=== PATIENT | male | born 1960 | race Caucasian/White ===

== ENCOUNTER 2022-04-21 16:13 | Emergency (ER) | payer OTHER, SELFPAY ==
--- NOTE | ~2022-04-21 | XR_ITS ---
EXAMINATION: XR CHEST CLINICAL INFORMATION: Chest wall pain COMPARISON: 05/30/2009 TECHNIQUE: 2 views of the chest were obtained. FINDINGS: Bilateral basilar atelectasis. Trace effusions cannot be excluded. The mid-upper lung zones are grossly clear. There is no failure. The cardiac silhouette is within normal limits for projection. The hilar regions are not pathologically enlarged. XR/XR chest 2V IMPRESSION: Bilateral basilar atelectasis
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
[2022-04-21 16:27] VITALS: BP 178/64; PULSE 59; RESP 18; TEMP 36.1; O2SAT 92; BMI 25.1
--- NOTE | 2022-04-21 16:32 | ECG_ITS ---
Test Reason : chest pain Blood Pressure : / mmHG Vent. Rate : 057 BPM Atrial Rate : 057 BPM P-R Int : 144 ms QRS Dur : 094 ms QT Int : 454 ms P-R-T Axes : 019 -37 047 degrees QTc Int : 441 ms Sinus bradycardia Left axis deviation Minimal voltage criteria for LVH, may be normal variant ( [place] product ) Abnormal ECG When compared with ECG of 30-MAY-2009 23:24, Incomplete right bundle branch block is no longer Present Referred By: Generic ED Physician Electronically Signed By:CAMILO QUINTANA
[2022-04-21 17:06] LABS: MANUAL DIFF FLAG NO
[2022-04-21 17:08] LABS: Basophils Absolute Auto 0.1 X10*3/uL (0.0-0.2); Basophils Percent Auto 0.7 % (0-2); Eosinophils Absolute Auto 0.4 X10*3/uL (0.0-0.4); Eosinophils Percent Auto 4.3 % (0-4); Hematocrit 38.1 % (42.0-52.0); Hemoglobin 12.3 g/dl (14.0-18.0); Imm Gran Abs Auto 0.06 X10*3/uL (0.00-0.03); Imm Gran Pct Auto 0.6 % (0.0-0.4); Lymphocytes Absolute Auto 2.9 X10*3/uL (1.2-4.9); Lymphocytes Percent Auto 28.7 % (20-40); Mean Corpuscular HGB Conc 32.3 g/dl (31.0-36.0); Mean Corpuscular Hemoglobin 30.5 pg (27.0-33.0); Mean Corpuscular Volume 94.5 fL (80.0-98.0); Mean Platelet Volume 9.7 fL (9.4-12.4); Monocytes Absolute Auto 0.9 X10*3/uL (0.1-1.2); Neutrophils Absolute Auto 5.8 x10*3/uL (2.0-8.3); Neutrophils Percent Auto 56.7 % (45-73); Platelet Count 275 X10*3/uL (160-400); Red Blood Count 4.03 X10*6/uL (4.60-5.80); Red Cell Distribution Width 11.9 % (11.0-16.0); White Blood Count 10.3 X10*3/uL (4.8-10.8)
[2022-04-21 17:21] LABS: D Dimer High Sensitivity 207 NG/ML
[2022-04-21 17:23] LABS: Anion Gap 13 (12-20); Blood Urea Nitrogen 16 mg/dL (9-16); Calcium 8.4 mg/dL (8.4-10.2); Carbon Dioxide 28 mmol/L (22-29); Chloride 105 mmol/L (96-108); Creatinine Clr Calc Pharmacy 80.6; Estimated Glomerular Filt Rate > 60; Glucose Random 94 mg/dL (60-115); Potassium 4.4 mmol/L (3.3-5.1); Sodium 142 mmol/L (135-145)
[2022-04-21 17:32] LABS: B Type Natriuretic Peptide 160 pg/mL (<100); Troponin-I High Sensitivity 4.4 ng/L (<3.5-35.0)
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
[2022-04-21] MEDS: Lidocaine 4 % Patch ADH..PATCH 1 PATCH TRANSDERMA (18:54)
[2022-04-21] MEDS: Ketorolac Tromethamine 30 MG/ML VIAL IM (18:54)
== END 2022-04-21 19:55 | disposition home or self-care (01) ==
PROVIDERS: Emergency Provider Emergency Medicine Emergency Medical Services; PCP Nurse Practitioner
DX: S20.211A Contusion of right front wall of thorax, initial encounter (principal); W22.09XA Striking against other stationary object, initial encounter; Y93.89 Activity, other specified; Y92.811 Bus as the place of occurrence of the external cause; Y99.8 Other external cause status
CPT/HCPCS: 36415; 71046; 71100; 80048; 83880; 84484; 85025; 85379; 93005; 96372; 99283; 99284; J1885

== ENCOUNTER 2022-11-09 07:52 | Emergency (ER) | payer OTHER, SELFPAY ==
--- NOTE | ~2022-11-09 | CT_ITS ---
EXAMINATION: CT CHEST WITHOUT CONTRAST CLINICAL INFORMATION: Abnormal right lung base on recent CT abdomen and pelvis exam. COMPARISON: CT abdomen pelvis with IV contrast 11/09/2022 chest x-ray 04/21/2022. TECHNIQUE: Multidetector volumetric CT imaging of the chest was done. Axial MIP volume rendering provided. Sagittal and coronal reformatted images were obtained. This CT examination was performed using dose optimization techniques as appropriate, variously including the following: *Automated exposure control *Adjustment of mA and/or kV according to patient size (this includes techniques or standardized protocols for targeted exams where dose is matched to indication/reason for exam; i.e. extremities or head) *Use of iterative reconstruction technique DLP: 302 mGy-cm FINDINGS: TEXTILES PRINTER: Loss of right lung volume with blunting of right CP angle. Left lung is clear. LUNGS: The left lung is expanded with minimal compressive atelectasis lung base. Minimal left basilar atelectasis seen. There is chronic loss of right lung volume with chronic atelectasis and scarring right lung base and subpleural scarring or atelectasis right upper lobe and right middle lobe. There is minimal traction bronchiectasis right lower lobe without thickening. There is a 5 mm nodule right middle lobe axial image 263/5. No additional nodules seen. MEDIASTINUM: The heart size and the great vessels are normal caliber. Central trachea and the bronchi widely patent. The thyroid lobes are symmetric and normal. There is a 8 mm pretracheal nodule likely benign. No pericardial effusion seen. CORONARY ARTERY CALCIFICATION: None visualized on this study. PLEURA: There is a loculated right pleural effusion with visceral and parietal pleural thickening. No calcified pleural plaque seen. The left lobe is unremarkable. AXILLA: No lymphadenopathy. UPPER ABDOMEN: Visualized liver, spleen, pancreas and bilateral adrenal glands unremarkable. Multiple radiopaque calculi upper pole calyx left kidney and 2.2 cm cyst upper pole right kidney. OSSEOUS STRUCTURES: No aggressive lytic or sclerotic process seen. CT/CT chest wo IV con IMPRESSION: Chronic loss of right lung volume with atelectatic changes involving the entire lung. There is a loculated small right pleural effusion with pleural thickening. Minimal compressive atelectasis left lung base. Fleischner guidelines were followed.
--- NOTE | ~2022-11-09 | CT_ITS ---
EXAMINATION: CT ABDOMEN AND PELVIS WITH CONTRAST CLINICAL INFORMATION: Abdominal pain with nausea and vomiting COMPARISON: Chest film dated 08/29/2021 TECHNIQUE: Multidetector volumetric images were obtained from the superior aspect of the liver through the pubic symphysis following administration 85 mL of Omnipaque 350 intravenous contrast. Sagittal and coronal reformatted images were obtained on the technologist's workstation. Oral contrast: No This CT examination was performed using dose optimization techniques as appropriate, variously including the following: *Automated exposure control *Adjustment of mA and/or kV according to patient size (this includes techniques or standardized protocols for targeted exams where dose is matched to indication/reason for exam; i.e. extremities or head) *Use of iterative reconstruction technique DLP: 669 mGy-cm FINDINGS: LUNG BASES: Mild left basilar atelectasis. More thickened confluent density at the right base with a small effusion versus pleural reaction partially visualized. LIVER, GALLBLADDER, AND BILIARY TREE: There is mild intrahepatic ductal dilatation. Gallbladder is grossly within normal limits. The common duct portal region at 9 mm. There is also some dilatation of the pancreatic duct immediately adjacent PANCREAS: No obvious pancreatic lesion. Lesion at the ampulla cannot be excluded. Again ductal dilatation is seen in the pancreas. SPLEEN: Unremarkable. ADRENAL GLANDS: Unremarkable. KIDNEYS AND URETERS: There is no hydronephrosis. Some scattered areas of decreased attenuation may well represent evolving cystic change. BLADDER: Bladder is thick-walled. GASTROINTESTINAL TRACT: The bowel pattern is felt to be nonobstructing. A normal appendix is not seen but no definitive suspicion around the cecum. ABDOMINAL WALL: No significant hernia is appreciated. LYMPH NODES: There is no bulky adenopathy here. VASCULAR: Some atherosclerotic changes are noted. PELVIC VISCERA: Prominent prostate OSSEOUS STRUCTURES: Degenerative changes in the mid to lower lumbar spine. No compression injury. CT/CT abdomen pelvis w IV con IMPRESSION: The bowel pattern is nonobstructing. There is no free fluid. Note is made of mild intrahepatic ductal dilatation and prominent common duct and pancreatic duct. No obvious pancreatic lesion. Underlying lesion at the level the ampulla cannot be excluded. Consider MRI and postcontrast/MRCP to further evaluate. Other findings are as described above. There is significant density in the right lower lung which may represent atelectasis versus infiltrate with adjacent small effusion versus pleural reaction. Given the appearance underlying lesion cannot be excluded. Consider short-term follow-up after treatment in 4-[address] for continued evaluation. Otherwise consider a PET scan at this time to evaluate for possible underlying lesion. Other findings are as described above. Prominent prostate. Thick-walled bladder which may be hypertrophy. Cystitis cannot be excluded. Fleischner guidelines were followed.
--- NOTE | ~2022-11-09 | US_ITS ---
EXAMINATION: US ABDOMEN LIMITED CLINICAL INFORMATION: Epigastric pain, nausea and vomiting.. COMPARISON: None available. TECHNIQUE: Real-time imaging of the right upper quadrant abdominal viscera. FINDINGS: PANCREAS: The pancreas is partially obscured narrowing gas. LIVER: The liver is enlarged in size measuring 17.7 cm.. The liver is normal in size. The liver contour is normal. Parenchymal echogenicity is normal. No focal hepatic lesion. Mild dilated intrahepatic ducts are noted. GALLBLADDER: Normal. The gallbladder is physiologically distended without evidence of stones, sludge, polyps, wall thickening or pericholecystic fluid. COMMON BILE DUCT: Normal in caliber measuring 0.7 cm in diameter. RIGHT KIDNEY: No hydronephrosis. No renal calculi or focal parenchymal lesions. The kidney measures 9.5 cm in maximum dimension. There are anechoic cysts. An upper pole cyst measures 1.8 x 1.7 x 1.7 cm and septated. The midpole cyst measures 1.5 x 1.3 x 1.2 cm. FREE FLUID: None. US/US abdomen limited IMPRESSION: 1. Mild hepatomegaly. No focal lesion seen. 2. Mild intrahepatic ductal dilatation. 3. Right renal cysts. 4. Rest of the abdominal ultrasound is unremarkable.
[2022-11-09 07:57] VITALS: BP 140/90; BP 242/92; PULSE 50; PULSE 56; RESP 18; O2SAT 94; O2SAT 95; BMI 24.3
--- NOTE | 2022-11-09 08:34 | ECG_ITS ---
Test Reason : epigastric pain Blood Pressure : / mmHG Vent. Rate : 055 BPM Atrial Rate : 055 BPM P-R Int : 156 ms QRS Dur : 096 ms QT Int : 470 ms P-R-T Axes : 011 -34 030 degrees QTc Int : 449 ms Sinus bradycardia Left axis deviation Minimal voltage criteria for LVH, may be normal variant ( [place] product ) Abnormal ECG When compared with ECG of 21-APR-2022 16:55, No significant change was found Referred By: Mahsa Vargas Electronically Signed By:DEIRDRE PEÑALOZA MD
[2022-11-09] MEDS: Magnesium Hydrox/Alum Hydrox 30 ML ORAL.SUSP PO (08:51)
[2022-11-09] MEDS: ondansetron HCL 4 MG/2 ML VIAL IVPUSH (08:51)
[2022-11-09] MEDS: Lidocaine HCl Viscous 2 % 15 ML SOLUTION MUCOUS MEM (08:51)
[2022-11-09] MEDS: 0.9 % Sodium Chloride 1,000 ML 999 ML IV (08:51)
[2022-11-09] MEDS: Famotidine/PF 20 MG/2 ML VIAL IVPUSH (08:51)
[2022-11-09] MEDS: lisinopriL 40 MG TABLET PO (08:51)
[2022-11-09 08:52] VITALS: BP 202/88
--- NOTE | 2022-11-09 08:54 | ED_ITS ---
HPI - Nausea/Vomiting/Diarrhea General Chief complaint: Nausea/Vomiting/Diarrhea Stated complaint: Nausea since last night per EMS Time Seen by Provider: 11/09/22 08:05 Source: patient Mode of arrival: ambulatory History of Present Illness HPI Narrative: 62-year-old male with past medical history of hypertension presenting to the ED complaining of nausea, vomiting, epigastric abdominal pain since 02:00AM. Reports about 3 episodes of nonbloody emesis. Reports ate food that was not but in the refrigerator last night, suspects this may be cause of symptoms. Denies fever, recent travel, dysuria/hematuria, diarrhea. Patient denies taking his antihypertensive this morning MD elicited complaint: nausea, vomiting and abdominal pain Related Data Previous Rx's Medication Instructions Recorded acetaminophen 500 mg tablet 500 mg PO Q6H PRN fever or pain 04/21/22 (Tylenol Extra Strength) #14 tabs cyclobenzaprine 5 mg tablet 5 mg PO Q8H PRN pain (scale score 04/21/22 7-10) 5 days #14 tabs lidocaine 5 % topical patch 1 patch topical DAILY PRN pain #30 04/21/22 (Lidoderm) ea naproxen 500 mg tablet 500 mg PO BID PRN pain 10 days #20 04/21/22 tabs Allergies Allergy/AdvReac Type Severity Reaction Status Date / Time No Known Allergies Allergy Mild NONE Unverified 05/07/20 15:16 Review of Systems Review of Systems: Constitutional: No Fever, No Chills, No Fatigue, No Malaise ENT/Mouth: No Ear Pain, No Nasal Congestion, No sore throat, No Rhinorrhea, No Swallowing Difficulty Eyes: No Eye Pain, No Swelling, No Redness, No Vision Changes Cardiovascular: No Chest Pain, No SOB, No Edema, No Palpitations Respiratory: No Cough, No Sputum, No Dyspnea Gastrointestinal: + Nausea, + Vomiting, No Diarrhea, No Constipation, + Abdominal pain, No Hematochezia, No Melena Genitourinary: No Dysuria, No Urinary Frequency, No Hematuria, No Urinary Incontinence/retention, No Flank Pain Musculoskeletal: No joint pain, No Myalgias Skin: No Skin Lesions, No rash Neuro: No Weakness, No Dizziness, No Headache Yes all other systems are reviewed and are negative Constitutional: Constitutional: Reports as per [facility] Past Medical History Attestation statement: The following information was validated with the patient. Social History Social History Smoked in Last 30 Days: No Use of substances other than those prescribed or required for medical reasons: No Any prior treatment program specific to substance use: No Advance Directives: No Advance Directives Information Provided: Yes Physical Exam Vital Signs: Vital Signs: Last Vital Signs Pulse 56 11/09/22 07:57 Resp 18 11/09/22 07:57 BP 172/88 H 11/09/22 10:11 Pulse Ox 94 11/09/22 07:57 O2 Del Method 11/09/22 07:57 BMI result Body Mass Index 24.3 Const: General: cooperative, healthy appearing and no acute distress Orientation/consciousness: patient oriented x3 Limitations: no limitations HEENT: Head: Yes normal to inspection and Yes atraumatic Ears: hearing grossly normal bilaterally General nose exam: Normal external nose present Face and sinus: Yes normal facial exam Eyes: General: appearance normal, both eyes and all related structures EOM: EOMs intact bilaterally Neck: Neck: Yes normal visual inspection and Yes no meningeal signs Resp: Effort & Inspection: normal respiratory effort and no respiratory distress Auscultation: clear to auscultation bilaterally, no crackles, no rales and no rhonchi Cardio: Rate: regular rate Heart sounds: S1 normal heart sound present and S2 normal heart sound present GI: Inspection: Yes normal to inspection Palpation (GI): Soft to palpation, Tenderness to palpation present (GI) in the epigastrum; with no rebound tenderness, no guarding and not rigid : General: Yes no CVA tenderness Back/Spine/Pelvis: Back: no CVA tenderness Skin: Rashes: no rashes Wounds: no wounds Neuro: General: patient oriented x3, tone normal and no meningeal signs Gai t exam (Neuro): Normal gait present Extrem: General: Yes normal to inspection Course Course Course Narrative: -1000--mild leukocytosis of 11.3. Labs otherwise reassuring >> on re-evaluation patient reports continued abdominal pain, abnormal remain soft with epigastric and periumbilical tenderness will obtain CT for further eval -UA with protein and ketones, not infected. -1202--CT abdomen pelvis w IV con IMPRESSION: The bowel pattern is nonobstructing. There is no free fluid. ? Note is made of mild intrahepatic ductal dilatation and prominent common duct and pancreatic duct. No obvious pancreatic lesion. Underlying lesion at the level the ampulla cannot be excluded. Consider MRI and postcontrast/MRCP to further evaluate. ? Other findings are as described above. There is significant density in the right lower lung which may represent atelectasis versus infiltrate with adjacent small effusion versus pleural reaction. Given the appearance underlying lesion cannot be excluded. Consider short-term follow-up after treatment in 4-[address] for continued evaluation. Otherwise consider a PET scan at this time to evaluate for possible underlying lesion. ? Other findings are as described above. ? Prominent prostate. Thick-walled bladder which may be hypertrophy. Cystitis cannot be excluded.? >>On re-evaluation patient reports symptomatic improvement, tolerated p.o. chelly johnny, abdomen soft and nontender. Will consult GI, Dr. Rodriguez and obtain CT chest for further evaluation. Dr. Rodriguez recommended ultrasound. -1535--CT chest wo IV con IMPRESSION: Chronic loss of right lung volume with atelectatic changes involving the entire lung. There is a loculated small right pleural effusion with pleural thickening. Minimal compressive atelectasis left lung base. Fleischner guidelines were followed. US abdomen limited IMPRESSION: 1.? Mild hepatomegaly. No focal lesion seen. 2.? Mild intrahepatic ductal dilatation. 3.? Right renal cysts. 4.? Rest of the abdominal ultrasound is unremarkable. >> results discussed. Abdomen remains soft and nontender, patient tolerating p.o. without difficulty. will have patient follow-up outpatient with PCP/GI for further workup Results discussed with patient including worrisome signs and symptoms and strict return precautions, and when to return to the emergency department. They verbalized understanding and feel safe for discharge at this time. Medications Administered Discontinued Medications Generic Name Dose Route Start Last Admin Trade Name Freq PRN Reason Stop Dose Admin Al Hydroxide/Mg Hydroxide 30 ml 11/09/22 08:34 11/09/22 08:51 Magnesium Hydrox/Alum Hydrox 30 Ml Oral.Susp PO 11/09/22 08:35 30 ml ONCE ONE Administration Famotidine 20 mg 11/09/22 08:34 11/09/22 08:51 Famotidine/Pf 20 Mg/2 Ml Vial IVPUSH 11/09/22 08:35 20 mg ONCE ONE Administration Sodium Chloride 1,000 mls @ 999 mls/hr 11/09/22 08:45 11/09/22 09:52 Ns IV 11/09/22 09:45 Infused .Q1H1M PACO Infusion Iohexol 85 ml 11/09/22 10:17 11/09/22 10:19 Iohexol 350 Mg/Ml 75 Ml Infus..Btl IV 11/09/22 10:18 85 ml ONCE ONE Administration Lidocaine HCl 15 ml 11/09/22 08:34 11/09/22 08:51 Lidocaine Hcl Viscous 2 % 15 Ml Solution MUCOUS MEM 11/09/22 08:35 15 ml ONCE ONE Administration Lisinopril 40 mg 11/09/22 08:36 11/09/22 08:51 Lisinopril 40 Mg Tablet PO 11/09/22 08:37 40 mg ONCE ONE Administration Protocol Ondansetron HCl 4 mg 11/09/22 08:34 11/09/22 08:51 Ondansetron Hcl 4 Mg/2 Ml Vial IVPUSH 11/09/22 08:35 4 mg ONCE ONE Administration Medical Decision Making Medical Decision Making MDM Narrative: 62-year-old male with past medical history of hypertension presenting to the ED complaining of nausea, vomiting, epigastric abdominal pain since 02:00AM. On exam hypertensive, NAD, nontoxic, abdomen soft epigastric tenderness, no rebound or guarding, no CVAT. Concern for gastritis/GERD vs pancreatitis vs food poisoning vs gastroenteritis. Lower suspicion for appendicitis/diverticulitis at this time Plan: Labs, UA, IVF, antiemetics, reassess Please refer to course for remaining clinical decision making, interpretation of labs/imaging results, and discussions with consultants and/or family members. 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 11/09/22 08:50 11/09/22 08:50 Labs: Lab Results 11/09/22 11/09/22 11/09/22 Range/Units 08:50 08:50 08:50 WBC 11.3 H (4.8-10.8) X10*3/uL RBC 4.76 (4.60-5.80) X10*6/uL Hgb 14.2 (14.0-18.0) g/dl Hct 43.7 (42.0-52.0) % MCV 91.8 (80.0-98.0) fL MCH 29.8 (27.0-33.0) pg MCHC 32.5 (31.0-36.0) g/dl RDW 12.4 (11.0-16.0) % Plt Count 284 (160-400) X10*3/uL MPV 9.8 (9.4-12.4) fL Immature Gran % (Auto) 0.3 (0.0-0.4) % Neut % (Auto) 81.8 H (45-73) % Lymph % (Auto) 11.4 L (20-40) % [place] % (Auto) 5.0 (2-11) % Eos % (Auto) 1.1 (0-4) % Baso % (Auto) 0.4 (0-2) % Lymph # (Auto) 1.3 (1.2-4.9) X10*3/uL [place] # (Auto) 0.6 (0.1-1.2) X10*3/uL Eos # (Auto) 0.1 (0.0-0.4) X10*3/uL Baso # (Auto) 0.1 (0.0-0.2) X10*3/uL Abs Immat Gran (auto) 0.03 (0.00-0.03) X10*3/uL Absolute Neuts (auto) 9.3 H (2.0-8.3) x10*3/uL Absolute Nucleated RBC 0.000 (0.0-0.012) X10*3/uL Nucleated RBC % (auto) 0.0 (0.0-0.2) /100WBC Sodium 139 (135-145) mmol/L Potassium 3.9 (3.3-5.1) mmol/L Chloride 101 (96-108) mmol/L Carbon Dioxide 29 (22-29) mmol/L Anion Gap 13 (12-20) BUN 12 (9-16) mg/dL Creatinine 0.72 (0.5-1.4) mg/dL Estim Creat Clear Calc 102.9 Estimated GFR > 60 Random Glucose 125 H (60-115) mg/dL Calcium 9.1 D (8.4-10.2) mg/dL Magnesium 1.9 (1.6-2.6) mg/dL Total Bilirubin 0.9 (0.0-1.0) mg/dL Direct Bilirubin 0.3 (0.0-0.5) mg/dL AST 34 (5-37) U/L ALT 28 (0-40) U/L Alkaline Phosphatase 136 H (39-117) U/L Total Protein 8.1 H (6.5-8.0) g/dL Albumin 3.9 (3.5-5.0) g/dL Lipase 11 (8-78) U/L Urine Color Yellow Urine Appearance Cloudy Urine pH 8.0 (5.0-9.0) Ur Specific [place] 1.015 (1.005-1.025) Urine Protein 100 (2+) H (Neg-Trace) mg/dL Urine Glucose (UA) Negative (Negative) mg/dL Urine Ketones 15 (Negative) mg/dL Urine Blood Negative (Negative) Urine Nitrite Negative (Negative) Ur Leukocyte Esterase Negative (Negative) Urine RBC 0-2 (0-2) /HPF Urine WBC 0-5 (0-5) /HPF Ur Squamous Epith Cells 0-2 (0-2) /HPF Urine Bacteria None Seen (None Seen) Hyaline Casts 0-2 (0-2) /LPF Independent Interpretation I performed an independent interpretation of an: EKG Interpretation: My interpretation EKG sinus bradycardia at a rate of 55. DC interval 156. QTC 449. No STEMI Radiology Impression Discussion of test interpretation with radiology: I have reviewed the radiologist's reading. External Record Review External record reviewed: Inpatient record, Office record, Outpatient record, Prior outpatient labs, Prior outpatient radiology, Primary care record and Outside ED record Discharge Plan Discharge Clinical Impression: Nausea & vomiting, Intrahepatic bile duct dilation, Pleural effusion, right Patient Disposition: Home, Self-Care Instructions: Pleural Effusion (ED), Acute Nausea and Vomiting (ED) Additional Instructions: Your blood work was reassuring. Your CT scan showed a right small pleural effusion, and you also have a dilated intrahepatic duct. PLEASE FOLLOW-UP WITH HER PRIMARY CARE DOCTOR IN REGARDS TO THIS YOU SHOULD ALSO FOLLOW-UP WITH GASTROENTEROLOGY If her symptoms persist or worsen, your unable to eat or drink, persistent nause a/vomiting, chest pain or shortness of breath return to the ED Prescriptions: No Action acetaminophen [Tylenol Extra Strength] 500 mg tablet 500 mg PO Q6H PRN (Reason: fever or pain) Qty: 14 0RF lidocaine [Lidoderm] 5 % adhesive patch,medicated 1 patch topical DAILY MDD remove after 12 hours PRN (Reason: pain) Qty: 30 0RF Rx Instructions: leave on most painful area for up to 12 hrs naproxen 500 mg tablet 500 mg PO BID PRN (Reason: pain) 10 Days Qty: 20 0RF cyclobenzaprine 5 mg tablet 5 mg PO Q8H PRN (Reason: pain (scale score 7-10)) 5 Days Qty: 14 0RF Referrals: [facility] [Provider Group] - 1 week Physician,Unknown J [Primary Care Provider] - Stand Alone Forms: Work/School Release
[2022-11-09 08:57] LABS: MANUAL DIFF FLAG NO
[2022-11-09 08:59] LABS: Basophils Absolute Auto 0.1 X10*3/uL (0.0-0.2); Basophils Percent Auto 0.4 % (0-2); Eosinophils Absolute Auto 0.1 X10*3/uL (0.0-0.4); Eosinophils Percent Auto 1.1 % (0-4); Hematocrit 43.7 % (42.0-52.0); Hemoglobin 14.2 g/dl (14.0-18.0); Imm Gran Abs Auto 0.03 X10*3/uL (0.00-0.03); Imm Gran Pct Auto 0.3 % (0.0-0.4); Lymphocytes Absolute Auto 1.3 X10*3/uL (1.2-4.9); Lymphocytes Percent Auto 11.4 % (20-40); Mean Corpuscular HGB Conc 32.5 g/dl (31.0-36.0); Mean Corpuscular Hemoglobin 29.8 pg (27.0-33.0); Mean Corpuscular Volume 91.8 fL (80.0-98.0); Mean Platelet Volume 9.8 fL (9.4-12.4); Monocytes Absolute Auto 0.6 X10*3/uL (0.1-1.2); Neutrophils Absolute Auto 9.3 x10*3/uL (2.0-8.3); Neutrophils Percent Auto 81.8 % (45-73); Platelet Count 284 X10*3/uL (160-400); Red Blood Count 4.76 X10*6/uL (4.60-5.80); Red Cell Distribution Width 12.4 % (11.0-16.0); White Blood Count 11.3 X10*3/uL (4.8-10.8)
[2022-11-09 09:01] LABS: Appearance Urine Cloudy; Color Urine Yellow; Glucose Urine UA Negative (Negative); Leukocyte Esterase Urine Negative (Negative); Nitrite Urine Negative (Negative); Specific Gravity - Urine 1.015 (1.005-1.025); UMIC TRIGGER UACC YES; Urine Blood Negative (Negative); Urine Ketones 15 mg/dL (Negative); Urine Protein 100 (2+) mg/dL (Neg-Trace)
[2022-11-09 09:06] LABS: Bacteria Urine None Seen (None Seen); Hyaline Casts Urine 0-2 /LPF (0-2); RBC Urine 0-2 /HPF (0-2); Squamous Epithelial Cell Urine 0-2 /HPF (0-2); WBC Urine 0-5 /HPF (0-5)
[2022-11-09 09:17] LABS: Alanine Aminotransferase 28 U/L (0-40); Albumin Level 3.9 g/dL (3.5-5.0); Alkaline Phosphatase 136 U/L (39-117); Anion Gap 13 (12-20); Aspartate Amino Transferase 34 U/L (5-37); Bilirubin Direct 0.3 mg/dL (0.0-0.5); Bilirubin Total 0.9 mg/dL (0.0-1.0); Blood Urea Nitrogen 12 mg/dL (9-16); Calcium 9.1 mg/dL (8.4-10.2); Carbon Dioxide 29 mmol/L (22-29); Chloride 101 mmol/L (96-108); Creatinine Clr Calc Pharmacy 102.9; Estimated Glomerular Filt Rate > 60; Glucose Random 125 mg/dL (60-115); Lipase 11 U/L (8-78); Magnesium 1.9 mg/dL (1.6-2.6); Potassium 3.9 mmol/L (3.3-5.1); Sodium 139 mmol/L (135-145); Total Protein 8.1 g/dL (6.5-8.0)
--- NOTE | 2022-11-09 09:19 | MHC.EDTECH ---
EKG done now due to being used.
[2022-11-09 10:11] VITALS: BP 172/88
[2022-11-09] MEDS: iohexoL 350 MG/ML 75 ML INFUS..BTL 85 ML IV (10:19)
[2022-11-09 15:51] VITALS: BP 168/61; PULSE 55; RESP 16; TEMP 36.6; O2SAT 98
== END 2022-11-09 15:54 | disposition home or self-care (01) ==
PROVIDERS: Physician Assistant; Emergency Provider Emergency Medicine
DX: J90 Pleural effusion, not elsewhere classified (principal); K83.8 Other specified diseases of biliary tract; R11.2 Nausea with vomiting, unspecified; I10 Essential (primary) hypertension; Z79.899 Other long term (current) drug therapy
CPT/HCPCS: 36415; 71250; 74177; 76705; 80048; 80076; 81001; 81003; 83690; 83735; 85025; 93005; 96361; 96374; 96375; 99284; 99285; J2405; Q9967

== ENCOUNTER 2023-01-08 07:31 | Emergency (ER) | payer OTHER, SELFPAY ==
--- NOTE | ~2023-01-08 | CT_ITS ---
EXAMINATION: CT ABDOMEN AND PELVIS WITH CONTRAST CLINICAL INFORMATION: Sudden onset epigastric pain. Evaluate for biliary colic, perforation. COMPARISON: Abdominal ultrasound and CT chest/abdomen/pelvis dated 11/09/2022. TECHNIQUE: Multidetector volumetric images were obtained from the superior aspect of the liver through the pubic symphysis following administration 85 mL of Omnipaque 350 intravenous contrast. Sagittal and coronal reformatted images were obtained on the technologist's workstation. Oral contrast: No. This CT examination was performed using dose optimization techniques as appropriate, variously including the following: *Automated exposure control *Adjustment of mA and/or kV according to patient size (this includes techniques or standardized protocols for targeted exams where dose is matched to indication/reason for exam; i.e. extremities or head) *Use of iterative reconstruction technique DLP: 656 mGy-cm FINDINGS: LUNG BASES: Trace right-sided pleural effusion and pleural thickening, decreased when compared to the prior examination. Mild bibasilar dependent atelectasis. LIVER, GALLBLADDER, AND BILIARY TREE: The liver is normal in size, shape, and attenuation. No focal hepatic lesion or intrahepatic biliary ductal dilatation is present. The common bile duct is again noted to measure up to 0.8 cm, not significantly changed. The gallbladder is unremarkable with no evidence of radiopaque gallstones, gallbladder wall thickening, or obvious pericholecystic inflammatory changes. PANCREAS: Dilatation of the main pancreatic duct measuring up to 0.5 cm, unchanged. No radiopaque ampullary stone. An occult ampullary stone or ampullary lesion could be considered, and direct visualization/ERCP could help further evaluate if clinically indicated. No pancreatic inflammatory change. SPLEEN: Unremarkable. ADRENAL GLANDS: Unremarkable. KIDNEYS AND URETERS: The kidneys are normal in size, shape, and attenuation. No hydronephrosis, hydroureter, or calculi seen. Stable bilateral renal hypodensities, likely representing renal cysts. Findings are not clinically significant, and no dedicated follow up imaging is recommended. No perinephric stranding. BLADDER: Unremarkable. GASTROINTESTINAL TRACT: Focal, mildly prominent central small bowel loop measuring up to 3.7 cm. No additional bowel dilatation. Findings could represent minimal focal ileus in the appropriate clinical setting. Air and stool throughout the colon. No bowel wall thickening or inflammatory change. Appendix is not identified, however, no right lower quadrant inflammatory change to suggest acute appendicitis. ABDOMINAL WALL: No significant hernia is appreciated. LYMPH NODES: No significant lymphadenopathy. VASCULAR: Unremarkable. PELVIC VISCERA: Stable prostatomegaly. OSSEOUS STRUCTURES: No acute osseous abnormality. Prominent degenerative disc disease at L3-L4 and L4-L5. CT/CT abdomen pelvis w IV con IMPRESSION: 1. Focal, mildly prominent central small bowel loop measuring up to 3.7 cm. No additional bowel dilatation. Findings could represent minimal focal ileus in the appropriate clinical setting. Air and stool throughout the colon. No bowel wall thickening or inflammatory change. 2. Stable dilatation of the common bile duct and main pancreatic duct. No radiopaque stone. An occult ampullary stone or ampullary lesion could be considered, and direct visualization/ERCP could help further evaluate if clinically indicated. No intrahepatic biliary ductal dilatation. No evidence of acute cholecystitis or pancreatitis. 3. Trace right-sided pleural effusion and pleural thickening, decreased when compared to the prior examination. Fleischner guidelines were followed.
[2023-01-08 07:38] VITALS: BP 180/110; PULSE 68; RESP 20; TEMP 36.8; O2SAT 96; BMI 29.5
[2023-01-08 07:46] VITALS: BP 222/87; PULSE 140; RESP 18; TEMP 36.8; O2SAT 99
--- NOTE | 2023-01-08 07:49 | ED_ITS ---
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 He points to his epigastric area when asked to localize the pain. He describes the pain is a burning sensation which is constant is 10/10. He states he has had similar pain and was seen in the emergency department on 11/09/2022 with a similar presentation-CT scan of the abdomen pelvis revealed mild intrahepatic duct dilatation prominent common bile duct and pancreatic duct. Ultrasound of the right upper quadrant revealed mild hepatomegaly, mild intrahepatic ductal dilatation right renal cyst with no evidence of acute cholecystitis. Patient improved at that visit with medical management the patient was discharged advised to follow-up with GI and his PCP. The patient denied fever, chills, cough, chest pain, shortness of breath. He complained of nausea and had several episodes of vomiting here in the emergency department. The emesis was yellow and nonbloody. The patient denied diarrhea, dark stools or bloody stools. Patient denies alcohol use. He has a history of heroin use disorder and states he has not used in 2 years, he is in a methadone maintenance program and has been taking methadone 50 mg daily and has been getting daily doses. He did not get his dose this morning. Related Data Previous Rx's Medication Instructions Recorded acetaminophen 500 mg tablet 500 mg PO Q6H PRN fever or pain 04/21/22 (Tylenol Extra Strength) #14 tabs cyclobenzaprine 5 mg tablet 5 mg PO Q8H PRN pain (scale score 04/21/22 7-10) 5 days #14 tabs lidocaine 5 % topical patch 1 patch topical DAILY PRN pain #30 04/21/22 (Lidoderm) ea naproxen 500 mg tablet 500 mg PO BID PRN pain 10 days #20 04/21/22 tabs aluminum hydrox-magnesium carb 254 10 ml PO QID PRN dyspepsia #355 mL 01/08/23 mg-237.5 mg/5 mL oral suspension (Gaviscon Extra Strength) omeprazole 20 mg capsule,delayed 20 mg PO DAILY 30 days #30 caps 01/08/23 release Allergies Allergy/AdvReac Type Severity Reaction Status Date / Time No Known Allergies Allergy Mild NONE Unverified 05/07/20 15:16 Review of Systems Review of Systems Yes all other systems are reviewed and are negative [facility] Past Medical History [facility] Narrative: Past medical history: Hypertension, heroin use disorder-in remission on methadone maintenance. Past surgical history: Appendectomy, herniorrhaphy. Social history: He does smoke cigarettes. He denies alcohol use. He denies drug use. Social History Social History Alcohol intake: former Smoked in Last 30 Days: Yes Advance Directives: No Advance Directives Information Provided: No Physical Exam ED Vital Signs: Vital Signs - 24 hr 01/08/23 07:38 01/08/23 07:46 01/08/23 08:23 Temperature 98.2 F 98.2 F Pulse Rate 140 H Respiratory Rate 20 18 22 H Blood Pressure 222/87 H Pulse Oximetry 99 Oxygen Delivery Method Room Air Room Air 01/08/23 08:43 01/08/23 10:04 Temperature 98.3 F Pulse Rate 54 56 Respiratory Rate 18 18 Blood Pressure 188/66 H 183/74 H Pulse Oximetry 99 99 Oxygen Delivery Method Room Air Room Air BMI result Body Mass Index 29.5 Const Other: Awake, alert, male patient, appears to be in distress secondary to his abdominal pain, he is diaphoretic, had multiple episodes of vomiting here in the emergency department while I was interviewing him. [facility] Head: Yes normal to inspection, Yes normocephalic and Yes atraumatic Ears: external ears normal General nose exam: Normal external nose present Face and sinus: Yes normal facial exam Mouth: Normal oral and palatal mucosa present Throat: Yes posterior oropharynx normal Eyes General: appearance normal, both eyes and all related structures Pupils: Equal, round and reactive pupils present Neck Neck: Yes normal visual inspection, Yes no lymphadenopathy, Yes trachea midline and Yes supple Chest Chest palpation & inspection: normal inspection of the chest and normal palpation of entire chest wall Resp Effort & Inspection: normal respiratory effort and able to speak in complete sentences Auscultation: clear to auscultation bilaterally Cardio Rate: regular rate Rhythm: regular rhythm Heart sounds: S1 normal heart sound present, S2 normal heart sound present and no murmurs GI Inspection: Yes normal to inspection Palpation (GI): Soft to palpation, Tenderness to palpation present (GI) in the epigastrum (Moderate to severe) and in the RUQ (Moderate); with no rebound tenderness and no guarding Auscultation: normal bowel sounds General: Yes no CVA tenderness Back/Spine/Pelvis Back: no CVA tenderness Skin General skin exam: no rashes or lesions noted Neuro Cranial nerves: Yes CN's II-XII intact bilaterally and Yes Equal, round and reactive pupils present Cognition (Neuro): normal cognition Motor exam (neuro): 5/5 motor strength present throughout Extrem General: Yes normal to inspection Psych Appearance: grossly normal Speech and movement: Normal speech and movement present Affect: normal affect Attitude: cooperative Thought process: Normal thought process present Thought content: Normal thought content present Medical Decision Making Medical Decision Making MDM Narrative: 62-year-old male with history of hypertension, heroin use disorder in remission on methadone who presents emergency department for evaluation of sudden onset of epigastric pain at 06:00 hours, the pain is 10/10 associated with nausea and vomiting. Patient had a similar presentation 11/09/2022 with a negative workup. Patient was actively vomiting here in the emergency department and appear to be in distress secondary to his pain. Patient does have essential hypertension is blood pressure was elevated 220/87-I believe this is caused by his pain and stress. Patient did have significant epigastric and right upper quadrant tenderness. I ordered a CBC, CMP, PT/INR, PTT, lipase, lactic acid, troponin urine drug screen, urinalysis, EKG, CT scan of the abdomen pelvis with IV contrast. Patient was ordered to get normal saline IV x1 L. His pain was treated with Toradol 30 mg IV and morphine 4 mg IV. His nausea was treated with Zofran 4 mg IV. 1034: My interpretation laboratory evaluation as follows: Elevated AST, ALT and alk-phos 65, 64 and 143. AST and ALT are elevated compared to previous vis it 11/09/2022 however alk-phos a similarly elevated. ETOH was below detectable limits. Urinalysis was negative. ETOH was below detectable limits. The patient's opiate screen was negative, frontal screen was positive. CT scan of the patient's abdomen pelvis not reveal a clear cause for his pain however he does have an incidental finding of dilated common bile duct and pancreatic duct which will need follow-up with GI. I did tell him that this could be secondary to a gallstone or secondary to cancer and was very important that he get follow-up and the patient did understand this discussion The patient will be treated for possible gastritis with Prilosec 20 mg once a day for 1 month and Gaviscon extra-strength 10 mL 4 times a day as needed for pain for 1 week. Differential Diagnosis Differential Diagnoses: The differential diagnosis associated with the presentation includes Differential diagnosis includes was not limited to bowel perforation, gastritis, biliary colic, pancreatitis, diverticulitis, viral syndrome Admission/Observation Consideration of admission/observation: Escalation of care including admission/observation considered Lab Data MDM Lab Attestation statement: I reviewed the patient's lab results. 01/08/23 08:11 01/08/23 08:39 Labs: Lab Results 01/08/23 01/08/23 01/08/23 Range/Units 08:11 08:11 08:11 WBC 8.8 (4.8-10.8) X10*3/uL RBC 4.59 L (4.60-5.80) X10*6/uL Hgb 13.7 L (14.0-18.0) g/dl Hct 41.7 L (42.0-52.0) % MCV 90.8 (80.0-98.0) fL MCH 29.8 (27.0-33.0) pg MCHC 32.9 (31.0-36.0) g/dl RDW 12.4 (11.0-16.0) % Plt Count 260 (160-400) X10*3/uL MPV 10.3 (9.4-12.4) fL Immature Gran % (Auto) 0.3 (0.0-0.4) % Neut % (Auto) 71.8 (45-73) % Lymph % (Auto) 17.7 L (20-40) % [place] % (Auto) 7.5 (2-11) % Eos % (Auto) 2.0 (0-4) % Baso % (Auto) 0.7 (0-2) % Lymph # (Auto) 1.6 (1.2-4.9) X10*3/uL [place] # (Auto) 0.7 (0.1-1.2) X10*3/uL Eos # (Auto) 0.2 (0.0-0.4) X10*3/uL Baso # (Auto) 0.1 (0.0-0.2) X10*3/uL Abs Immat Gran (auto) 0.03 (0.00-0.03) X10*3/uL Absolute Neuts (auto) 6.3 (2.0-8.3) x10*3/uL Absolute Nucleated RBC 0.000 (0.0-0.012) X10*3/uL Nucleated RBC % (auto) 0.0 (0.0-0.2) /100WBC PT 10.2 (10.0-13.1) SEC INR 0.9 (0.9-1.1) APTT 26.1 (26.0-36.4) SEC Sodium (135-145) mmol/L Potassium (3.3-5.1) mmol/L Chloride (96-108) mmol/L Carbon Dioxide (22-29) mmol/L Anion Gap (12-20) BUN (9-16) mg/dL Creatinine (0.5-1.4) mg/dL Estim Creat Clear Calc Estimated GFR Random Glucose (60-115) mg/dL Lactic Acid (0.5-2.0) mmol/L Calcium (8.4-10.2) mg/dL Total Bilirubin (0.0-1.0) mg/dL AST (5-37) U/L ALT (0-40) U/L Alkaline Phosphatase (39-117) U/L Troponin I High Sens 5.4 (<3.5-35.0) ng/L Total Protein (6.5-8.0) g/dL Albumin (3.5-5.0) g/dL Lipase (8-78) U/L Urine Color Urine Appearance Urine pH (5.0-9.0) Ur Specific [place] (1.005-1.025) Urine Protein (Neg-Trace) mg/dL Urine Glucose (UA) (Negative) mg/dL Urine Ketones (Negative) mg/dL Urine Blood (Negative) Urine Nitrite (Negative) Ur Leukocyte Esterase (Negative) Urine Opiates Screen (Not Detect) Urine Fentanyl Screen (Not Detect) Ur Barbiturates Screen (Not Detect) Ur Phencyclidine Scrn (Not Detect) Ur Amphetamines Screen (Not Detect) U Benzodiazepines Scrn (Not Detect) Urine Cocaine Screen (Not Detect) U Marijuana (THC) Screen (Not Detect) Ethyl Alcohol mg/dL 01/08/23 01/08/23 01/08/23 Range/Units 08:12 08:39 10:01 WBC (4.8-10.8) X10*3/uL RBC (4.60-5.80) X10*6/uL Hgb (14.0-18.0) g/dl Hct (42.0-52.0) % MCV (80.0-98.0) fL MCH (27.0-33.0) pg MCHC (31.0-36.0) g/dl RDW (11.0-16.0) % Plt Count (160-400) X10*3/uL MPV (9.4-12.4) fL Immature Gran % (Auto) (0.0-0.4) % Neut % (Auto) (45-73) % Lymph % (Auto) (20-40) % [place] % (Auto) (2-11) % Eos % (Auto) (0-4) % Baso % (Auto) (0-2) % Lymph # (Auto) (1.2-4.9) X10*3/uL [place] # (Auto) (0.1-1.2) X10*3/uL Eos # (Auto) (0.0-0.4) X10*3/uL Baso # (Auto) (0.0-0.2) X10*3/uL Abs Immat Gran (auto) (0.00-0.03) X10*3/uL Absolute Neuts (auto) (2.0-8.3) x10*3/uL Absolute Nucleated RBC (0.0-0.012) X10*3/uL Nucleated RBC % (auto) (0.0-0.2) /100WBC PT (10.0-13.1) SEC INR (0.9-1.1) APTT (26.0-36.4) SEC Sodium 140 (135-145) mmol/L Potassium 4.3 (3.3-5.1) mmol/L Chloride 106 (96-108) mmol/L Carbon Dioxide 28 (22-29) mmol/L Anion Gap 10 L (12-20) BUN 9 (9-16) mg/dL Creatinine 0.70 (0.5-1.4) mg/dL Estim Creat Clear Calc 121.7 Estimated GFR > 60 Random Glucose 139 H (60-115) mg/dL Lactic Acid 1.8 (0.5-2.0) mmol/L Calcium 8.7 (8.4-10.2) mg/dL Total Bilirubin 0.8 (0.0-1.0) mg/dL AST 65 H (5-37) U/L ALT 64 H (0-40) U/L Alkaline Phosphatase 143 H (39-117) U/L Troponin I High Sens (<3.5-35.0) ng/L Total Protein 7.5 (6.5-8.0) g/dL Albumin 3.8 (3.5-5.0) g/dL Lipase 11 (8-78) U/L Urine Color Yellow Urine Appearance Clear Urine pH 8.0 (5.0-9.0) Ur Specific [place] 1.020 (1.005-1.025) Urine Protein Trace (Neg-Trace) mg/dL Urine Glucose (UA) Negative (Negative) mg/dL Urine Ketones Negative (Negative) mg/dL Urine Blood Negative (Negative) Urine Nitrite Negative (Negative) Ur Leukocyte Esterase Negative (Negative) Urine Opiates Screen (Not Detect) Urine Fentanyl Screen (Not Detect) Ur Barbiturates Screen (Not Detect) Ur Phencyclidine Scrn (Not Detect) Ur Amphetamines Screen (Not Detect) U Benzodiazepines Scrn (Not Detect) Urine Cocaine Screen (Not Detect) U Marijuana (THC) Screen (Not Detect) Ethyl Alcohol < 10 mg/dL 01/08/23 Range/Units 10:01 WBC (4.8-10.8) X10*3/uL RBC (4.60-5.80) X10*6/uL Hgb (14.0-18.0) g/dl Hct (42.0-52.0) % MCV (80.0-98.0) fL MCH (27.0-33.0) pg MCHC (31.0-36.0) g/dl RDW (11.0-16.0) % Plt Count (160-400) X10*3/uL MPV (9.4-12.4) fL Immature Gran % (Auto) (0.0-0.4) % Neut % (Auto) (45-73) % Lymph % (Auto) (20-40) % [place] % (Auto) (2-11) % Eos % (Auto) (0-4) % Baso % (Auto) (0-2) % Lymph # (Auto) (1.2-4.9) X10*3/uL [place] # (Auto) (0.1-1.2) X10*3/uL Eos # (Auto) (0.0-0.4) X10*3/uL Baso # (Auto) (0.0-0.2) X10*3/uL Abs Immat Gran (auto) (0.00-0.03) X10*3/uL Absolute Neuts (auto) (2.0-8.3) x10*3/uL Absolute Nucleated RBC (0.0-0.012) X10*3/uL Nucleated RBC % (auto) (0.0-0.2) /100WBC PT (10.0-13.1) SEC INR (0.9-1.1) APTT (26.0-36.4) SEC Sodium (135-145) mmol/L Potassium (3.3-5.1) mmol/L Chloride (96-108) mmol/L Carbon Dioxide (22-29) mmol/L Anion Gap (12-20) BUN (9-16) mg/dL Creatinine (0.5-1.4) mg/dL Estim Creat Clear Calc Estimated GFR Random Glucose (60-115) mg/dL Lactic Acid (0.5-2.0) mmol/L Calcium (8.4-10.2) mg/dL Total Bilirubin (0.0-1.0) mg/dL AST (5-37) U/L ALT (0-40) U/L Alkaline Phosphatase (39-117) U/L Troponin I High Sens (<3.5-35.0) ng/L Total Protein (6.5-8.0) g/dL Albumin (3.5-5.0) g/dL Lipase (8-78) U/L Urine Color Urine Appearance Urine pH (5.0-9.0) Ur Specific [place] (1.005-1.025) Urine Protein (Neg-Trace) mg/dL Urine Glucose (UA) (Negative) mg/dL Urine Ketones (Negative) mg/dL Urine Blood (Negative) Urine Nitrite (Negative) Ur Leukocyte Esterase (Negative) Urine Opiates Screen POSITIVE H (Not Detect) Urine Fentanyl Screen POSITIVE H (Not Detect) Ur Barbiturates Screen Not Detected (Not Detect) Ur Phencyclidine Scrn Not Detected (Not Detect) Ur Amphetamines Screen Not Detected (Not Detect) U Benzodiazepines Scrn Not Detected (Not Detect) Urine Cocaine Screen Not Detected (Not Detect) U Marijuana (THC) Screen Not Detected (Not Detect) Ethyl Alcohol mg/dL Radiology Impression Discussion of test interpretation with radiology: I have reviewed the radiologist's reading. Radiologist Impression: CT abdomen pelvis w IV con IMPRESSION: 1. Focal, mildly prominent central small bowel loop measuring up to 3.7 cm. No additional bowel dilatation. Findings could represent minimal focal ileus in the appropriate clinical setting. Air and stool throughout the colon. No bowel wall thickening or inflammatory change. 2. Stable dilatation of the common bile duct and main pancreatic duct. No radiopaque stone. An occult ampullary stone or ampullary lesion could be considered, and direct visualization/ERCP could help further evaluate if clinically indicated. No intrahepatic biliary ductal dilatation. No evidence of acute cholecystitis or pancreatitis. 3. Trace right-sided pleural effusion and pleural thickening, decreased when compared to the prior examination. Fleischner guidelines were followed. Dictated By:Fidencio Hurtado MD Medications Administered Discontinued Medications Generic Name Dose Route Start Last Admin Trade Name Freq PRN Reason Stop Dose Admin Sodium Chloride 1,000 mls @ 999 mls/hr 01/08/23 07:49 01/08/23 09:23 Ns IV 01/08/23 08:49 Infused .Q1H1M STA Infusion Iohexol 100 ml 01/08/23 09:56 01/08/23 09:56 Iohexol 350 Mg/Ml 100 Ml Infus..Btl IV 01/08/23 09:57 85 ml ONCE ONE Administration Ketorolac Tromethamine 30 mg 01/08/23 07:49 01/08/23 08:22 Ketorolac Tromethamine 15 Mg/Ml Vial IVPUSH 01/08/23 07:50 30 mg ONCE STA Administration Methadone HCl 50 mg 01/08/23 08:23 01/08/23 09:24 Methadone Hcl 20 Mg/2 Ml Oral.Conc PO 01/08/23 08:24 50 mg ONCE ONE Administration Morphine Sulfate 4 mg 01/08/23 07:52 01/08/23 08:23 Morphine Sulfate 4 Mg/Ml Cartridge IVPUSH 01/08/23 07:53 4 mg ONCE STA Administration Protocol Ondansetron HCl 4 mg 01/08/23 07:49 01/08/23 08:22 Ondansetron Hcl 4 Mg/2 Ml Vial IVPUSH 01/08/23 07:50 4 mg ONCE ONE Administration Discharge Plan Discharge Clinical Impression: Gastritis, Dilated pancreatic duct, Common bile duct dilatation Patient Disposition: Home, Self-Care Instructions: Gastritis (ED) Additional Instructions: Your blood work was unremarkable except for an elevation of your liver tests. Your pancreas tests were normal. The CT scan of your abdomen pelvis without IV contrast did not reveal a clear cause for your pain but you do have a incidental finding that needs to be followed up by the mortgage funder or your doctor. You have dilation of your common bile duct in dilation of the pancreatic duct. This can be caused by a gallstone or by cancer. I believe that your pain is caused by too much acid in your stomach and infla mmation of your stomach (gastritis). Take Prilosec (omeprazole) 20 mg pills, 1 pill once a day for 1 month. This medication shuts off your acid production and lets the inflammation in your stomach and esophagus heal. Take extra-strength Gaviscon 10 mL (2 tsp) 4 times a day as needed for abdominal pain. Follow-up with your doctor in 2 days. Please return to the emergency department if her symptoms get worse or if he develops any symptoms that are concerning to you. Here is the radiology finding the you should discuss with your doctor: IMPRESSION: 2. Stable dilatation of the common bile duct and main pancreatic duct. No radiopaque stone. An occult ampullary stone or ampullary lesion could be considered, and direct visualization/ERCP could help further evaluate if clinically indicated. No intrahepatic biliary ductal dilatation. No evidence of acute cholecystitis or pancreatitis. Dictated By: Fidencio Hurtado MD Prescriptions: New omeprazole 20 mg capsule,delayed release(DR/EC) 20 mg PO DAILY 30 Days Qty: 30 0RF Gaviscon Extra Strength 254-237.5 mg/5 mL suspension 10 ml PO QID PRN (Reason: dyspepsia) Qty: 355 0RF No Action acetaminophen [Tylenol Extra Strength] 500 mg tablet 500 mg PO Q6H PRN (Reason: fever or pain) Qty: 14 0RF lidocaine [Lidoderm] 5 % adhesive patch,medicated 1 patch topical DAILY MDD remove after 12 hours PRN (Reason: pain) Qty: 30 0RF Rx Instructions: leave on most painful area for up to 12 hrs naproxen 500 mg tablet 500 mg PO BID PRN (Reason: pain) 10 Days Qty: 20 0RF cyclobenzaprine 5 mg tablet 5 mg PO Q8H PRN (Reason: pain (scale score 7-10)) 5 Days Qty: 14 0RF Referrals: Payam Shine [Physician] - 2 weeks (Needs follow-up for abnormal CT finding: Stable dilatation of the common bile duct and main pancreatic duct. No radiopaque stone. An occult ampullary stone or ampullary lesion could be considered, and direct visualization/ERCP could help further evaluate if clinically indicated. No intrahepatic biliary ductal dilatation. No evidence of acute cholecystitis or pancreatitis.) Stand Alone Forms: Work/School Release Print Language: Salvadorean
--- NOTE | 2023-01-08 07:49 | PC.NURSE ---
Alert andoriented. Arrived form home via ems. States this morning around 6am he had sudden onset abdominal pain. Positive bowel sousnds x 4. Denies sob or chest pain. No edema noted. PERRLA. States takes methadone and did not get his dose today. States has htn. BP elevated at 222/87, provider aware. Denies headache. Vomited small amount of mucus, states vomited x 1 at home prior to arrival.
--- NOTE | 2023-01-08 07:50 | ECG_ITS ---
Test Reason : Chest pain, abdominal pain Blood Pressure : / mmHG Vent. Rate : 053 BPM Atrial Rate : 053 BPM P-R Int : 158 ms QRS Dur : 090 ms QT Int : 454 ms P-R-T Axes : 032 -30 034 degrees QTc Int : 426 ms Sinus bradycardia Left axis deviation Abnormal ECG When compared with ECG of 09-NOV-2022 09:16, No significant change was found Referred By: Moo Aaron Electronically Signed By:REJI KRUSE
[2023-01-08] MEDS: 0.9 % Sodium Chloride 1,000 ML 999 ML IV (08:12)
[2023-01-08 08:18] LABS: MANUAL DIFF FLAG NO
[2023-01-08 08:20] LABS: Basophils Absolute Auto 0.1 X10*3/uL (0.0-0.2); Basophils Percent Auto 0.7 % (0-2); Eosinophils Absolute Auto 0.2 X10*3/uL (0.0-0.4); Hematocrit 41.7 % (42.0-52.0); Hemoglobin 13.7 g/dl (14.0-18.0); Imm Gran Abs Auto 0.03 X10*3/uL (0.00-0.03); Imm Gran Pct Auto 0.3 % (0.0-0.4); Lymphocytes Absolute Auto 1.6 X10*3/uL (1.2-4.9); Lymphocytes Percent Auto 17.7 % (20-40); Mean Corpuscular HGB Conc 32.9 g/dl (31.0-36.0); Mean Corpuscular Hemoglobin 29.8 pg (27.0-33.0); Mean Corpuscular Volume 90.8 fL (80.0-98.0); Mean Platelet Volume 10.3 fL (9.4-12.4); Monocytes Absolute Auto 0.7 X10*3/uL (0.1-1.2); Monocytes Percent Auto 7.5 % (2-11); Neutrophils Absolute Auto 6.3 x10*3/uL (2.0-8.3); Neutrophils Percent Auto 71.8 % (45-73); Platelet Count 260 X10*3/uL (160-400); Red Blood Count 4.59 X10*6/uL (4.60-5.80); Red Cell Distribution Width 12.4 % (11.0-16.0); White Blood Count 8.8 X10*3/uL (4.8-10.8)
[2023-01-08] MEDS: Ketorolac Tromethamine 15 MG/ML VIAL 30 MG IVPUSH (08:22)
[2023-01-08] MEDS: ondansetron HCL 4 MG/2 ML VIAL IVPUSH (08:22)
[2023-01-08 08:23] VITALS: RESP 22
[2023-01-08] MEDS: Morphine Sulfate 4 MG/ML CARTRIDGE IVPUSH (08:23)
[2023-01-08 08:25] LABS: INTERNATIONAL NORM RATIO 0.9 (0.9-1.1); Prothrombin Time 10.2 SEC (10.0-13.1)
[2023-01-08 08:27] LABS: Partial Thromboplastin Time 26.1 SEC (26.0-36.4)
[2023-01-08 08:35] LABS: Lactic Acid 1.8 mmol/L (0.5-2.0)
--- NOTE | 2023-01-08 08:39 | PC.NURSE ---
Alert and oriented. Methadone dose confirmed and faxed to pharmacy. Reports feeling better after administration of ordered medication.
[2023-01-08 08:43] VITALS: BP 188/66; PULSE 54; RESP 18; TEMP 36.8; O2SAT 99
[2023-01-08 08:46] LABS: Troponin-I High Sensitivity 5.4 ng/L (<3.5-35.0)
[2023-01-08] MEDS: methADONE HCl 20 MG/2 ML ORAL.CONC 50 MG PO (09:24)
[2023-01-08 09:25] LABS: Alanine Aminotransferase 64 U/L (0-40); Albumin Level 3.8 g/dL (3.5-5.0); Alkaline Phosphatase 143 U/L (39-117); Anion Gap 10 (12-20); Aspartate Amino Transferase 65 U/L (5-37); Bilirubin Total 0.8 mg/dL (0.0-1.0); Blood Urea Nitrogen 9 mg/dL (9-16); Calcium 8.7 mg/dL (8.4-10.2); Carbon Dioxide 28 mmol/L (22-29); Chloride 106 mmol/L (96-108); Creatinine Clr Calc Pharmacy 121.7; Estimated Glomerular Filt Rate > 60; Ethanol < 10 mg/dL; Glucose Random 139 mg/dL (60-115); Lipase 11 U/L (8-78); Potassium 4.3 mmol/L (3.3-5.1); Sodium 140 mmol/L (135-145); Total Protein 7.5 g/dL (6.5-8.0)
[2023-01-08] MEDS: iohexoL 350 MG/ML 100 ML INFUS..BTL IV (09:56)
--- NOTE | 2023-01-08 10:00 | HE.PHANOTE ---
Methadone Verifcation Pharmacy has received the methadone verifcation from [place]. Patient last received methadone [facility] from [facility] on 01/06 @ [id number]. RN received information form Aayush at the clinic. Loretta Trivedi, HoodD
[2023-01-08 10:04] VITALS: BP 183/74; PULSE 56; RESP 18; O2SAT 99
--- NOTE | 2023-01-08 10:08 | PC.NURSE ---
reports pain has continued to improve. ambulated to bathroom and voided large amount of clear yellow urine.
[2023-01-08 10:09] LABS: Appearance Urine Clear; Color Urine Yellow; Glucose Urine UA Negative (Negative); Leukocyte Esterase Urine Negative (Negative); Nitrite Urine Negative (Negative); Urine Blood Negative (Negative); Urine Ketones Negative (Negative); Urine Protein Trace mg/dL (Neg-Trace)
[2023-01-08 10:21] LABS: Amphetamine Screen Urine Not Detected (Not Detect); Barbiturates, Urine Not Detected (Not Detect); Benzodiazepines Screen Urine Not Detected (Not Detect); Cannabinoid Screen Urine Not Detected (Not Detect); Cocaine Screen Urine Not Detected (Not Detect); Fentanyl, urine POSITIVE (Not Detect); Opiate Screen Urine POSITIVE (Not Detect); Phencyclidine Screen Urine Not Detected (Not Detect)
--- NOTE | 2023-01-08 11:10 | PC.NURSE ---
Alert and oriented. Report pain has resolved. Reviewed discharge with patient.
== END 2023-01-08 11:12 | disposition home or self-care (01) ==
PROVIDERS: Emergency Provider Emergency Medicine Emergency Medical Services
DX: K29.70 Gastritis, unspecified, without bleeding (principal); R10.11 Right upper quadrant pain; R07.89 Other chest pain; K86.89 Other specified diseases of pancreas; Z79.899 Other long term (current) drug therapy
CPT/HCPCS: 36415; 74177; 80053; 80307; 81003; 83605; 83690; 84484; 85025; 85610; 85730; 93005; 96361; 96374; 96375; 99284; 99285; J1885; J2270; J2405; Q9967

== ENCOUNTER 2023-05-30 07:04 | Emergency (ER) | payer OTHER, SELFPAY ==
[2023-05-30 07:11] VITALS: BP 158/96; BP 217/85; PULSE 54; PULSE 60; RESP 16; TEMP 36.8; O2SAT 94; BMI 29.8
--- NOTE | 2023-05-30 07:19 | ED.ABDPAIN ---
HPI - Abdominal Pain General Chief Complaint: Abdominal Pain Stated Complaint: abd pain Time Seen by Provider: 05/30/23 07:14 Source: patient Mode of arrival: EMS History of Present Illness HPI narrative: 63-year-old male who presents via EMS for upper abdominal discomfort that started this morning and was accompanied by nausea and vomiting. He denies any difficulty with passing flatus and states his last bowel movement was yesterday. He otherwise denies any dysuria, shortness of breath, chest pain/palpitations, fevers, chills. Related Data Previous Rx's Medication Instructions Recorded acetaminophen 500 mg tablet 500 mg PO Q6H PRN fever or pain 04/21/22 (Tylenol Extra Strength) #14 tabs cyclobenzaprine 5 mg tablet 5 mg PO Q8H PRN pain (scale score 04/21/22 7-10) 5 days #14 tabs lidocaine 5 % topical patch 1 patch topical DAILY PRN pain #30 04/21/22 (Lidoderm) ea naproxen 500 mg tablet 500 mg PO BID PRN pain 10 days #20 04/21/22 tabs aluminum hydrox-magnesium carb 254 10 ml PO QID PRN dyspepsia #355 mL 01/08/23 mg-237.5 mg/5 mL oral suspension (Gaviscon Extra Strength) omeprazole 20 mg capsule,delayed 20 mg PO DAILY 30 days #30 caps 01/08/23 release Allergies Allergy/AdvReac Type Severity Reaction Status Date / Time No Known Allergies Allergy Mild NONE Unverified 05/07/20 15:16 Review of Systems Review of Systems Pertinent positives and negatives as stated in HPI PMFSH Past Medical History Source: nursing notes reviewed Social History Social History Alcohol intake: former Smoked in Last 30 Days: Yes Use of substances other than those prescribed or required for medical reasons: No Advance Directives: No Advance Directives Information Provided: No Physical Exam ED Vital Signs: Vital Signs - 24 hr 05/30/23 07:11 05/30/23 08:47 Temperature 98.3 F Pulse Rate 54 59 Respiratory Rate 16 16 Blood Pressure 217/85 H 172/85 H Pulse Oximetry 94 95 Oxygen Delivery Method Room Air Room Air BMI result Body Mass Index 29.8 VITAL SIGNS: Reviewed. GENERAL: Well developed, well nourished, in no acute distress. HEAD: Normocephalic/atraumatic EYES: PERRLA, EOMI EARS: Ext canals without abnormality NOSE: Nares patent bilateral OROPHARYNX: no oral lesions noted, posterior pharynx clear NECK: Supple, no adenopathy LUNGS: Normal breath sounds. No adventitious sounds or accessory muscle use. SpO2<94> CARDIOVASCULAR: Regular rate and rhythm without noted murmurs ABDOMEN: Soft, non-tender, non-distended with bowel sounds. MUSCULOSKELETAL: No tenderness, deformities, or effusions noted on gross inspection. EXTREMITIES: No cyanosis, clubbing or edema. SKIN: Inspection of the skin reveals no rashes NEUROLOGIC: Alert and oriented x 4. Strength and sensation to light touch were grossly intact x 4. 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 Patient received GI cocktail and 5 mg of Norvasc. I reviewed all investigations and re-evaluated the patient. Hematologic indices negative for leukocytosis or left shift, there is a stable normocytic anemia and no thrombocytopenia. Coagulation studies are within normal limits. Chemistry indices negative for electrolyte abnormalities, there is no ED and there is a chronic transaminemia without elevated lipase and no findings on clinical exam to suggest cholecystitis such as Madrigal's positivity or right upper quadrant pain. KUB consistent with constipation and otherwise no evidence of obstruction or radiopaque bodies. 0846: Blood pressure has improved, anti emetic was provided along with a GI cocktail and patient is feeling much better and tolerating oral intake and will be discharged. Differential Diagnosis Differential Diagnoses: The differential diagnosis associated with the presentation includes Please see the discussion above Admission/Observation Consideration of admission/observation: Escalation of care including admission/observation considered Please see the discussion above Lab Data [facility] Lab Attestation statement: I reviewed the patient's lab results. Please see the discussion above 05/30/23 07:29 05/30/23 07:29 Labs: Lab Results 05/30/23 Range/Units 07:29 WBC 7.5 (4.8-10.8) X10*3/uL RBC 4.41 L (4.60-5.80) X10*6/uL Hgb 13.6 L (14.0-18.0) g/dl Hct 41.1 L (42.0-52.0) % MCV 93.2 (80.0-98.0) fL MCH 30.8 (27.0-33.0) pg MCHC 33.1 (31.0-36.0) g/dl RDW 11.8 (11.0-16.0) % Plt Count 252 (160-400) X10*3/uL MPV 9.8 (9.4-12.4) fL Immature Gran % (Auto) 0.5 H (0.0-0.4) % Neut % (Auto) 60.1 (45-73) % Lymph % (Auto) 25.0 (20-40) % [place] % (Auto) 10.0 (2-11) % Eos % (Auto) 3.7 (0-4) % Baso % (Auto) 0.7 (0-2) % Lymph # (Auto) 1.9 (1.2-4.9) X10*3/uL [place] # (Auto) 0.8 (0.1-1.2) X10*3/uL Eos # (Auto) 0.3 (0.0-0.4) X10*3/uL Baso # (Auto) 0.1 (0.0-0.2) X10*3/uL Abs Immat Gran (auto) 0.04 H (0.00-0.03) X10*3/uL Absolute Neuts (auto) 4.5 (2.0-8.3) x10*3/uL Absolute Nucleated RBC 0.000 (0.0-0.012) X10*3/uL Nucleated RBC % (auto) 0.0 (0.0-0.2) /100WBC PT 11.1 (11.1-13.3) SEC INR 0.9 (0.9-1.1) Sodium 138 (135-145) mmol/L Potassium 3.7 (3.3-5.1) mmol/L Chloride 100 (96-108) mmol/L Carbon Dioxide 29 (22-29) mmol/L Anion Gap 13 (12-20) BUN 11 (9-16) mg/dL Creatinine 0.69 (0.5-1.4) mg/dL Estim Creat Clear Calc 122.4 Estimated GFR > 60 Random Glucose 111 (60-115) mg/dL Calcium 9.2 (8.4-10.2) mg/dL Total Bilirubin 0.7 (0.0-1.0) mg/dL AST 46 H (5-37) U/L ALT 43 H (0-40) U/L Alkaline Phosphatase 121 H (39-117) U/L Total Protein 7.9 (6.5-8.0) g/dL Albumin 3.9 (3.5-5.0) g/dL Lipase 11 (8-78) U/L Independent Interpretation I performed an independent interpretation of an: EKG Interpretation: Sinus bradycardia, HR-53, no STEMI, TX/QRS/QTC is within normal limits. Radiology Impression Discussion of test interpretation with radiology: I have reviewed the radiologist's reading. Radiologist Impression: Please see the discussion above External Record Review External record reviewed: Outpatient record, Prior outpatient labs and Prior outpatient radiology Chronic Conditions Patient?s care impacted by: Hypertension Medications Administered Discontinued Medications Generic Name Dose Route Start Last Admin Trade Name Freq PRN Reason Stop Dose Admin Al Hydroxide/Mg Hydroxide 30 ml 05/30/23 08:38 05/30/23 08:45 Magnesium Hydrox/Alum Hydrox 30 Ml Oral.Susp PO 05/30/23 08:39 30 ml ONCE ONE Administration Amlodipine Besylate 5 mg 05/30/23 07:53 05/30/23 08:05 Amlodipine Besylate 5 Mg Tablet PO 05/30/23 07:54 5 mg ONCE ONE Administration Protocol Lidocaine HCl 10 ml 05/30/23 08:38 05/30/23 08:45 Lidocaine Hcl Viscous 2 % 15 Ml Solution MUCOUS MEM 05/30/23 08:39 10 ml ONCE ONE Administration Ondansetron HCl 4 mg 05/30/23 07:38 05/30/23 08:05 Ondansetron Odt 4 Mg Tab.Rapdis TRANSLINGU 05/30/23 07:39 4 mg ONCE ONE Administration Discharge Plan Discharge Clinical Impression: Gastritis Patient Disposition: Home, Self-Care Instructions: Gastritis (ED), Diet for Stomach Ulcers and Gastritis (ED) Additional Instructions: 1. Reanudar todos los medicamentos caseros seg?n lo recetado. Le recomiendo que limite la cantidad de ibuprofeno/naproxeno/Aleve/Motrin que uday, ya que esto puede contribuir al malestar y malestar estomacal. 2. Con base en sydnee visitas anteriores a esta stephie de emergencia, le recomiendo que myra un seguimiento con rodriguez m?dico de atenci?n primaria y realice aayush evaluaci?n por Gastroenterolog?a. Regrese a la stephie de emergencias si los s?ntomas empeoran. 1. Resume all home medications as prescribed. I recommend that you limit the amount of ibuprofen/naproxen/Aleve/Motrin that you take as this can contribute to stomach discomfort and upset. 2. Based on your previous visits to this emergency room I highly recommend that you follow-up with your primary care doctor and pursue evaluation by Gastroenterology. Return to the ER for any worsening symptoms. Prescriptions: No Action acetaminophen [Tylenol Extra Strength] 500 mg tablet 500 mg PO Q6H PRN (Reason: fever or pain) Qty: 14 0RF lidocaine [Lidoderm] 5 % adhesive patch,medicated 1 patch topical DAILY MDD remove after 12 hours PRN (Reason: pain) Qty: 30 0RF Rx Instructions: leave on most painful area for up to 12 hrs naproxen 500 mg tablet 500 mg PO BID PRN (Reason: pain) 10 Days Qty: 20 0RF cyclobenzaprine 5 mg tablet 5 mg PO Q8H PRN (Reason: pain (scale score 7-10)) 5 Days Qty: 14 0RF omeprazole 20 mg capsule,delayed release(DR/EC) 20 mg PO DAILY 30 Days Qty: 30 0RF Gaviscon Extra Strength 254-237.5 mg/5 mL suspension 10 ml PO QID PRN (Reason: dyspepsia) Qty: 355 0RF Print Language: Bengali
[2023-05-30 08:47] VITALS: BP 172/85; PULSE 59; RESP 16; O2SAT 95
== END 2023-05-30 09:07 | disposition home or self-care (01) ==
PROVIDERS: Emergency Provider Student in an Organized Health Care Education/Training Program
DX: K29.70 Gastritis, unspecified, without bleeding (principal); R00.1 Bradycardia, unspecified; R10.13 Epigastric pain; R11.2 Nausea with vomiting, unspecified; Z79.899 Other long term (current) drug therapy
CPT/HCPCS: 36415; 74018; 80053; 83690; 85025; 85610; 93005; 99283; 99284

== ENCOUNTER 2023-07-25 03:43 | Emergency (ER) | payer OTHER, SELFPAY ==
--- NOTE | 2023-07-25 | ECG_ITS ---
Test Reason : HYPERTENSION Blood Pressure : / mmHG Vent. Rate : 063 BPM Atrial Rate : 063 BPM P-R Int : 146 ms QRS Dur : 092 ms QT Int : 422 ms P-R-T Axes : 007 -25 033 degrees QTc Int : 431 ms Normal sinus rhythm Incomplete right bundle branch block Minimal voltage criteria for LVH, may be normal variant ( [place] product ) Borderline ECG When compared with ECG of 30-MAY-2023 07:40, No significant change was found Referred By: Generic ED Physician Electronically Signed By:REJI KRUSE
[2023-07-25 03:53] VITALS: BP 175/72; PULSE 70; RESP 17; TEMP 36.8; O2SAT 94
[2023-07-25 04:03] VITALS: BP 175/72; BP 230/100; PULSE 71; PULSE 75; RESP 16; O2SAT 94; O2SAT 95; BMI 29.8
--- NOTE | 2023-07-25 04:08 | PC.NURSE ---
Pt presents to ED with reports of a headache that woke him up at 0100. Pt has hx of HTN and EMS noted BP of 230/100. BP in ED 175/72. Pt is A&Ox4, GCS 15, denies SOB, Chest pain, NVD, tingling in hands or feet, dizziness. Pt is changed over to brandon, attached to conveyor monitor. EKG and bloodwork obtained, waiting for ED provider at this time.
[2023-07-25 04:09] LABS: MANUAL DIFF FLAG NO
[2023-07-25 04:10] LABS: Basophils Absolute Auto 0.1 X10*3/uL (0.0-0.2); Basophils Percent Auto 1.1 % (0-2); Eosinophils Absolute Auto 0.5 X10*3/uL (0.0-0.4); Eosinophils Percent Auto 6.6 % (0-4); Hematocrit 36.9 % (42.0-52.0); Hemoglobin 11.9 g/dl (14.0-18.0); Imm Gran Abs Auto 0.03 X10*3/uL (0.00-0.03); Imm Gran Pct Auto 0.4 % (0.0-0.4); Lymphocytes Percent Auto 13.1 % (20-40); Mean Corpuscular HGB Conc 32.2 g/dl (31.0-36.0); Mean Corpuscular Hemoglobin 30.1 pg (27.0-33.0); Mean Corpuscular Volume 93.4 fL (80.0-98.0); Mean Platelet Volume 9.7 fL (9.4-12.4); Monocytes Absolute Auto 0.8 X10*3/uL (0.1-1.2); Monocytes Percent Auto 11.2 % (2-11); Neutrophils Percent Auto 67.6 % (45-73); Platelet Count 242 X10*3/uL (160-400); Red Blood Count 3.95 X10*6/uL (4.60-5.80); Red Cell Distribution Width 11.6 % (11.0-16.0); White Blood Count 7.4 X10*3/uL (4.8-10.8)
[2023-07-25 04:22] LABS: Anion Gap 12 (12-20); Blood Urea Nitrogen 14 mg/dL (9-16); Calcium 8.6 mg/dL (8.4-10.2); Carbon Dioxide 26 mmol/L (22-29); Chloride 103 mmol/L (96-108); Creatinine Clr Calc Pharmacy 111.2; Estimated Glomerular Filt Rate > 60; Glucose Random 112 mg/dL (60-115); Sodium 137 mmol/L (135-145)
[2023-07-25 04:29] LABS: Troponin-I High Sensitivity 8.3 ng/L (<3.5-35.0)
[2023-07-25 06:10] VITALS: BP 187/74; PULSE 58; RESP 17; O2SAT 95
--- NOTE | 2023-07-25 06:36 | ED.HA ---
HPI - Headache General Chief Complaint: Headache Stated Complaint: headache,fever,HTN COVID + Time Seen by Provider: 07/25/23 06:35 Source: patient, RN notes reviewed and old records reviewed Mode of arrival: ambulatory History of Present Illness HPI Narrative: 63-year-old male with past medical history of hypertension presenting to the ED complaining of headache since 01:00AM with associated chills/rhinorrhea and congestion. Reports headache improved at present. Denies taking any analgesics at home. Denies taking his antihypertensives this morning. Denies neck/back pain, nausea/vomiting, vision change/loss, numbness/tingling, weakness, CP. MD elicited complaint: headache Related Data Previous Rx's Medication Instructions Recorded acetaminophen 500 mg tablet 500 mg PO Q6H PRN fever or pain 04/21/22 (Tylenol Extra Strength) #14 tabs cyclobenzaprine 5 mg tablet 5 mg PO Q8H PRN pain (scale score 04/21/22 7-10) 5 days #14 tabs lidocaine 5 % topical patch 1 patch topical DAILY PRN pain #30 04/21/22 (Lidoderm) ea naproxen 500 mg tablet 500 mg PO BID PRN pain 10 days #20 04/21/22 tabs aluminum hydrox-magnesium carb 254 10 ml PO QID PRN dyspepsia #355 mL 01/08/23 mg-237.5 mg/5 mL oral suspension (Gaviscon Extra Strength) omeprazole 20 mg capsule,delayed 20 mg PO DAILY 30 days #30 caps 01/08/23 release Allergies Allergy/AdvReac Type Severity Reaction Status Date / Time No Known Allergies Allergy Mild NONE Unverified 07/25/23 04:06 Review of Systems Review of Systems: Constitutional: No Fever, No Chills ENT/Mouth: No Ear Pain, + Nasal Congestion, No sore throat, + Rhinorrhea, No Swallowing Difficulty Cardiovascular: No Chest Pain, No SOB Respiratory: No Cough, No Sputum Gastrointestinal: No Nausea, No Vomiting, No Diarrhea, No Constipation, No Abdominal pain Genitourinary: No Dysuria, No Urinary Frequency, No Hematuria, No Urinary Incontinence/retention Musculoskeletal: No joint pain, No Myalgias, No Joint Swelling Skin: No Skin Lesions, No rash Neuro: No Weakness, No Numbness, No Paresthesias, +HERNANDEZ Yes all other systems are reviewed and are negative Constitutional: Constitutional: Reports as per [facility] Past Medical History Attestation statement: The following information was validated with the patient. Source: old records reviewed Social History Social History Alcohol intake: former Smoked in Last 30 Days: Yes Use of substances other than those prescribed or required for medical reasons: No Advance Directives: No Advance Directives Information Provided: Yes Physical Exam Vital Signs: Vital Signs: Last Vital Signs Temp 98.2 F 07/25/23 03:53 Pulse 55 07/25/23 07:11 Resp 18 07/25/23 07:11 BP 177/70 H 07/25/23 07:11 Pulse Ox 95 07/25/23 07:11 O2 Del Method Room Air 07/25/23 06:10 BMI result Body Mass Index 29.8 Const: General: cooperative, healthy appearing and no acute distress Orientation/consciousness: patient oriented x3 Limitations: no limitations HEENT: Head: Yes normal to inspection and Yes atraumatic Ears: hearing grossly normal bilaterally, external ears normal and TM's normal bilaterally General nose exam: Normal external nose present Face and sinus: Yes normal facial exam Mouth: Normal oral and palatal mucosa present Throat: Yes posterior oropharynx normal Eyes: General: appearance normal, both eyes and all related structures Pupils: Equal, round and reactive pupils present EOM: EOMs intact bilaterally Neck: Neck: Yes normal visual inspection and Yes no meningeal signs Resp: Effort & Inspection: normal respiratory effort and no respiratory distress Auscultation: clear to auscultation bilaterally, no crackles and no wheezes Cardio: Rate: regular rate Heart sounds: S1 normal heart sound present and S2 normal heart sound present GI: Inspection: Yes normal to inspection Palpation (GI): Soft to palpation, nontender, no guarding and not rigid Skin: Rashes: no rashes Wounds: no wounds Neuro: General: patient oriented x3, tone normal and no meningeal signs Cranial nerves: Yes CN's II-XII intact bilaterally and Yes Equal, round and reactive pupils present Gait exam (Neuro): Normal gait present Extrem: General: Yes normal to inspection, Yes no pedal edema and Yes no calf tenderness Course Course Course Narrative: -0734--labs unremarkable. Influenza A positive -819-patient reports symptomatic improvement. Results discussed with recreation teacher Results discussed with patient including worrisome signs and symptoms and strict return precautions, and when to return to the emergency department. They verbalized understanding and feel safe for discharge at this time. Medications Administered Discontinued Medications Generic Name Dose Route Start Last Admin Trade Name Jayla PRN Reason Stop Dose Admin Acetaminophen/Butalbital/Caffeine 2 tab 07/25/23 06:59 07/25/23 07:10 Butalb/Acetamin/Caff 50/325/40 Tablet PO 07/25/23 07:00 2 tab ONCE ONE Administration Hydrochlorothiazide 25 mg 07/25/23 06:59 07/25/23 07:11 Hydrochlorothiazide 25 Mg Tablet PO 07/25/23 07:00 25 mg ONCE ONE Administration Protocol Lisinopril 40 mg 07/25/23 06:59 07/25/23 07:11 Lisinopril 40 Mg Tablet PO 07/25/23 07:00 40 mg ONCE ONE Administration Protocol Medical Decision Making Medical Decision Making [facility] Narrative: 63-year-old male with past medical history of hypertension presenting to the ED complaining of headache since 01:00AM with associated chills/rhinorrhea and congestion. On exam VSS, NAD, nontoxic appearing, no focal neuro deficits, congestion noted. Concern for viral illness. Low suspicion for SAH, meningitis/encephalitis. Low suspicion for hypertensive urgency/emergency Plan: Labs previously ordered, viral testing, PO Fioricet, home antihypertensives, re-evaluate Please refer to course for remaining clinical decision making, interpretation of labs/imaging results, and discussions with consultants and/or family members. Differential Diagnosis Differential Diagnoses: The differential diagnosis associated with the presentation includes As above Admission/Observation Consideration of admission/observation: Escalation of care including admission/observation considered Lab Data [facility] Lab Attestation statement: I reviewed the patient's lab results. 07/25/23 04:04 07/25/23 04:04 Labs: Lab Results 07/25/23 07/25/23 Range/Units 04:04 07:07 WBC 7.4 (4.8-10.8) X10*3/uL RBC 3.95 L (4.60-5.80) X10*6/uL Hgb 11.9 L (14.0-18.0) g/dl Hct 36.9 L (42.0-52.0) % MCV 93.4 (80.0-98.0) fL MCH 30.1 (27.0-33.0) pg MCHC 32.2 (31.0-36.0) g/dl RDW 11.6 (11.0-16.0) % Plt Count 242 (160-400) X10*3/uL MPV 9.7 (9.4-12.4) fL Immature Gran % (Auto) 0.4 (0.0-0.4) % Neut % (Auto) 67.6 (45-73) % Lymph % (Auto) 13.1 L (20-40) % [place] % (Auto) 11.2 H (2-11) % Eos % (Auto) 6.6 H (0-4) % Baso % (Auto) 1.1 (0-2) % Lymph # (Auto) 1.0 L (1.2-4.9) X10*3/uL [place] # (Auto) 0.8 (0.1-1.2) X10*3/uL Eos # (Auto) 0.5 H (0.0-0.4) X10*3/uL Baso # (Auto) 0.1 (0.0-0.2) X10*3/uL Abs Immat Gran (auto) 0.03 (0.00-0.03) X10*3/uL Absolute Neuts (auto) 5.0 (2.0-8.3) x10*3/uL Absolute Nucleated RBC 0.000 (0.0-0.012) X10*3/uL Nucleated RBC % (auto) 0.0 (0.0-0.2) /100WBC Sodium 137 (135-145) mmol/L Potassium 4.0 (3.3-5.1) mmol/L Chloride 103 (96-108) mmol/L Carbon Dioxide 26 (22-29) mmol/L Anion Gap 12 (12-20) BUN 14 (9-16) mg/dL Creatinine 0.76 (0.5-1.4) mg/dL Estim Creat Clear Calc 111.2 Estimated GFR > 60 Random Glucose 112 (60-115) mg/dL Calcium 8.6 D (8.4-10.2) mg/dL Troponin I High Sens 8.3 D (<3.5-35.0) ng/L COVID-19 (CADY) Negative (Negative) COVID-19 Clin Com See Note Influenza Type A (PRITESH) Positive A (Negative) Influenza Type B (PRITESH) Negative (Negative) Influenza A & B Note See Note Radiology Impression Discussion of test interpretation with radiology: I have reviewed the radiologist's reading. External Record Review External record reviewed: Inpatient record, Office record, Outpatient record, Prior outpatient labs, Prior outpatient radiology, Primary care record and Outside ED record Tests considered The following testing was considered but not selected: As above Prescription Management I considered prescription management with: Pain Medication and Antiviral Chronic Conditions Patient?s care impacted by: Hypertension Discharge Plan Discharge Clinical Impression: Influenza A Patient Disposition: Home, Self-Care Instructions: Influenza (DC) Additional Instructions: You have the Flu No antibiotics are indicated at this time Make sure you are staying hydrated. Drink plenty of fluids. Rest Alternate Tylenol and Motrin at home as needed for body aches and fever Follow-up with your doctor. If symptoms persist or worsen return to the emergency department *If you are a child & not tolerating liquid or urinating for more than 6 hours, or fevers are uncontrolled with medications at home, return to the emergency department* Prescriptions: No Action acetaminophen [Tylenol Extra Strength] 500 mg tablet 500 mg PO Q6H PRN (Reason: fever or pain) Qty: 14 0RF lidocaine [Lidoderm] 5 % adhesive patch,medicated 1 patch topical DAILY MDD remove after 12 hours PRN (Reason: pain) Qty: 30 0RF Rx Instructions: leave on most painful area for up to 12 hrs naproxen 500 mg tablet 500 mg PO BID PRN (Reason: pain) 10 Days Qty: 20 0RF cyclobenzaprine 5 mg tablet 5 mg PO Q8H PRN (Reason: pain (scale score 7-10)) 5 Days Qty: 14 0RF omeprazole 20 mg capsule,delayed release(DR/EC) 20 mg PO DAILY 30 Days Qty: 30 0RF Gaviscon Extra Strength 254-237.5 mg/5 mL suspension 10 ml PO QID PRN (Reason: dyspepsia) Qty: 355 0RF Referrals: ED Physician,Generic [Physician] - Stand Alone Forms: Work/School Release
[2023-07-25] MEDS: Butalb/Acetamin/Caff 50/325/40 TABLET 2 TAB PO (07:10)
[2023-07-25 07:11] VITALS: BP 177/70; PULSE 55; RESP 18; O2SAT 95
[2023-07-25] MEDS: hydroCHLOROthiazide 25 MG TABLET PO (07:11)
[2023-07-25] MEDS: lisinopriL 40 MG TABLET PO (07:11)
[2023-07-25 07:28] LABS: COVID-19 Test Negative (Negative); IDNOW Serial# 08D9AD1C; IDNOW Serial# BCCEAD1C; Influenza A Positive (Negative); Influenza B2 Negative (Negative)
[2023-07-25 08:30] VITALS: BP 151/67; PULSE 51; RESP 18; TEMP 37.1; O2SAT 98
== END 2023-07-25 08:32 | disposition home or self-care (01) ==
PROVIDERS: Physician Assistant; Emergency Provider Emergency Medicine Emergency Medical Services
DX: J10.1 Influenza due to other identified influenza virus with other respiratory manifestations (principal); U07.1 COVID-19; R51.9 Headache, unspecified; R50.9 Fever, unspecified; I10 Essential (primary) hypertension; Z79.899 Other long term (current) drug therapy
CPT/HCPCS: 36415; 80048; 84484; 85025; 87502; 87635; 93005; 99283; 99285

== ENCOUNTER → 2023-07-25 03:58 | Outpatient (BNV) | payer OTHER, SELFPAY | PROVIDERS: Emergency Provider Emergency Medicine Emergency Medical Services; Visit Provider Internal Medicine | DX: I10 Essential (primary) hypertension (principal) | CPT/HCPCS: 93010 ==

== ENCOUNTER 2023-08-22 02:59 | Emergency (ER) | payer OTHER, SELFPAY ==
--- NOTE | 2023-08-22 | ECG_ITS ---
Test Reason : ABDOMINAL PAIN Blood Pressure : / mmHG Vent. Rate : 053 BPM Atrial Rate : 053 BPM P-R Int : 150 ms QRS Dur : 098 ms QT Int : 476 ms P-R-T Axes : 034 -26 035 degrees QTc Int : 446 ms Sinus bradycardia Minimal voltage criteria for LVH, may be normal variant ( [place] product ) Borderline ECG When compared with ECG of 25-JUL-2023 03:58, No significant change was found Referred By: Generic ED Physician Electronically Signed By:Angel Holden
--- NOTE | ~2023-08-22 | CT_ITS ---
EXAMINATION: CT ABDOMEN AND PELVIS WITH CONTRAST CLINICAL INFORMATION: Upper and left lower quadrant abdominal pain, nausea and vomiting. COMPARISON: 11/09/2022 and 01/08/2023 TECHNIQUE: Multidetector volumetric images were obtained from the superior aspect of the liver through the pubic symphysis following administration 85 mL of Omnipaque 350 intravenous contrast. Sagittal and coronal reformatted images were obtained on the technologist's workstation. Oral contrast: No This CT examination was performed using dose optimization techniques as appropriate, variously including the following: *Automated exposure control *Adjustment of mA and/or kV according to patient size (this includes techniques or standardized protocols for targeted exams where dose is matched to indication/reason for exam; i.e. extremities or head) *Use of iterative reconstruction technique DLP: 650 mGy-cm FINDINGS: LUNG BASES: No acute abnormality. Near-complete resolution of previously observed right pleural effusion. Chronic peripheral curvilinear opacity of scarring in the right middle lobe. HEPATOBILIARY: Liver has normal size and contour. Gallbladder has a normal appearance. The intrahepatic ducts are chronically mildly dilated. The common duct measures up to maximum of 1.2 cm transverse diameter and this is unchanged compared to 11/09/2022. There are no visible radiopaque stones within the common duct. PANCREAS: Chronic mild atrophy of pancreatic parenchyma. No pancreatic edema or peripancreatic fluid. No evidence of a cystic or solid pancreatic mass. The pancreatic duct is dilated up to 0.6 cm within the pancreatic head, unchanged compared to 11/09/2022. There is no visible obstructing pancreatic lesion or overt ampullary lesion. SPLEEN: Normal. ADRENAL GLANDS: Normal. KIDNEYS AND URETERS: Kidneys are normal in size and enhance symmetrically. No renal stones or hydronephrosis. There are a few simple cysts of the kidneys. No renal imaging follow-up is recommended for simple cysts. The ureters are unremarkable. BLADDER: The bladder is underdistended. There appears to be mild diffuse thickening of the bladder wall, likely representing detrusor muscle hypertrophy. BOWEL AND PERITONEUM: Stomach is unremarkable. No dilated bowel loops. No focal bowel wall thickening, mesenteric fat stranding or free fluid. The appendix is not identified; however, no inflammatory changes within the right lower quadrant. ABDOMINAL WALL: Unremarkable. VASCULATURE: Abdominal aorta is normal in caliber and its branches are widely patent. Inferior vena cava is normal. LYMPH NODES: No pathologic sized lymph nodes in the abdomen or pelvis. No inguinal lymphadenopathy. PELVIC VISCERA: Prominent prostate gland measures approximately 5.3 x 3.6 x 5 cm; the median lobe of the prostate mildly protrudes into the bladder base. MUSCULOSKELETAL: Mild dextrocurvature of the chronically degenerated lumbar spine. Degenerative disc disease is moderate at L2-L3 and severe at L3-L4 and L4-L5. CT/CT abdomen pelvis w IV con IMPRESSION: * No acute abnormalities. No evidence of inflammation or obstruction along the gastrointestinal tract. * The common duct and pancreatic duct are chronically dilated, unchanged compared to 11/09/2022. The specific cause of the ductal dilatation is uncertain. There is no visible obstructing pancreatic or ampullary mass. Query if there is any history of an ampullary stenosis. Note that prior abdomen CT reports suggested consideration for ERCP or MRCP evaluation. * There appears to be trace residual right pleural effusion, significantly decreased compared to 01/08/2023.
[2023-08-22 03:09] VITALS: BP 186/96; BP 228/98; PULSE 54; PULSE 63; RESP 18; TEMP 37.7; O2SAT 95; O2SAT 97; BMI 29.7
[2023-08-22 03:30] LABS: MANUAL DIFF FLAG NO
[2023-08-22 03:44] LABS: Basophils Percent Auto 0.5 % (0-2); Eosinophils Absolute Auto 0.1 X10*3/uL (0.0-0.4); Eosinophils Percent Auto 1.5 % (0-4); Hematocrit 41.8 % (42.0-52.0); Imm Gran Abs Auto 0.02 X10*3/uL (0.00-0.03); Imm Gran Pct Auto 0.2 % (0.0-0.4); Lymphocytes Absolute Auto 2.1 X10*3/uL (1.2-4.9); Lymphocytes Percent Auto 25.3 % (20-40); Mean Corpuscular HGB Conc 33.5 g/dl (31.0-36.0); Mean Corpuscular Hemoglobin 30.6 pg (27.0-33.0); Mean Corpuscular Volume 91.5 fL (80.0-98.0); Mean Platelet Volume 10.2 fL (9.4-12.4); Monocytes Absolute Auto 0.7 X10*3/uL (0.1-1.2); Monocytes Percent Auto 7.7 % (2-11); Neutrophils Absolute Auto 5.4 x10*3/uL (2.0-8.3); Neutrophils Percent Auto 64.8 % (45-73); Platelet Count 235 X10*3/uL (160-400); Red Blood Count 4.57 X10*6/uL (4.60-5.80); Red Cell Distribution Width 11.9 % (11.0-16.0); White Blood Count 8.4 X10*3/uL (4.8-10.8)
[2023-08-22 03:46] LABS: Alanine Aminotransferase 28 U/L (0-40); Albumin Level 3.9 g/dL (3.5-5.0); Alkaline Phosphatase 127 U/L (39-117); Anion Gap 15 (12-20); Aspartate Amino Transferase 38 U/L (5-37); Bilirubin Direct 0.5 mg/dL (0.0-0.5); Blood Urea Nitrogen 11 mg/dL (9-16); Calcium 8.9 mg/dL (8.4-10.2); Carbon Dioxide 25 mmol/L (22-29); Chloride 104 mmol/L (96-108); Creatinine Clr Calc Pharmacy 106.7; Estimated Glomerular Filt Rate > 60; Glucose Random 129 mg/dL (60-115); Lipase 12 U/L (8-78); Potassium 3.5 mmol/L (3.3-5.1); Sodium 140 mmol/L (135-145); Total Protein 8.2 g/dL (6.5-8.0)
--- NOTE | 2023-08-22 03:48 | PC.NURSE ---
pt biba from home reporting onset of abdominal pain for one day, pt reports this morning he bgan having nausea and vomiting. pt reports abdominal pain in the upper right quadrant. pt abdomen soft, but tender to touch in the lower left lower quadrant. pt reports episode of diarrhea this morning. pt reports being dosed with methadone but reports he did not get dosed yesterday.
[2023-08-22 04:15] LABS: Influenza A PCR NEGATIVE (Negative); Influenza B PCR NEGATIVE (Negative); Resp Syncy Virus RNA Qual PCR NEGATIVE (Negative); SARS COV2 PCR INHOUSE NEGATIVE (Negative)
[2023-08-22] MEDS: ondansetron HCL 4 MG/2 ML VIAL IVPUSH (04:21)
--- NOTE | 2023-08-22 04:23 | PC.NURSE ---
provider verbal order to give pt zofran for nausea and vomiting at this time.
[2023-08-22 06:00] VITALS: BP 212/86; PULSE 56; RESP 20; TEMP 36.2; O2SAT 99
--- NOTE | 2023-08-22 06:21 | PC.NURSE ---
pt resting in stretcher, reports 8/10 abdominal pain at this time. provider aware of pt blood pressure.
--- NOTE | 2023-08-22 07:34 | ED_ITS ---
HPI - Abdominal Pain General Chief Complaint: Abdominal Pain Stated Complaint: ABDOMINAL PAIN/VOMMITING Time Seen by Provider: 08/22/23 06:33 Source: patient, EMS, RN notes reviewed and old records reviewed Mode of arrival: EMS History of Present Illness HPI narrative: 63-year-old male with a past medical history of hypertension presenting to the ED via EMS complaining of epigastric/upper abdominal pain, nausea, vomiting, and diarrhea x1 episode since 03:00. Denies known fever/chills, dysuria/hematuria, constipation. MD elicited complaint: abdominal pain Related Data Previous Rx's Medication Instructions Recorded acetaminophen 500 mg tablet 500 mg PO Q6H PRN fever or pain 04/21/22 (Tylenol Extra Strength) #14 tabs cyclobenzaprine 5 mg tablet 5 mg PO Q8H PRN pain (scale score 04/21/22 7-10) 5 days #14 tabs lidocaine 5 % topical patch 1 patch topical DAILY PRN pain #30 04/21/22 (Lidoderm) ea naproxen 500 mg tablet 500 mg PO BID PRN pain 10 days #20 04/21/22 tabs aluminum hydrox-magnesium carb 254 10 ml PO QID PRN dyspepsia #355 mL 01/08/23 mg-237.5 mg/5 mL oral suspension (Gaviscon Extra Strength) omeprazole 20 mg capsule,delayed 20 mg PO DAILY 30 days #30 caps 01/08/23 release oseltamivir 75 mg capsule (Tamiflu) 75 mg PO Q12H 5 days #10 caps 07/25/23 aluminum-mag hydroxide-simethicone 5 ml PO 5XD PRN dyspepsia #30 mL 08/22/23 200 mg-200 mg-20 mg/5 mL oral susp (Maalox Advanced) Allergies Allergy/AdvReac Type Severity Reaction Status Date / Time No Known Allergies Allergy Mild NONE Verified 08/22/23 03:09 Review of Systems Review of Systems Constitutional: No Fever, No Chills ENT/Mouth: No Ear Pain, No Nasal Congestion, No sore throat, No Rhinorrhea, No Swallowing Difficulty Cardiovascular: No Chest Pain, No SOB Respiratory: No Cough, No Sputum, No Wheezing Gastrointestinal: + Nausea, +Vomiting, + Diarrhea, No Constipation, + Abdominal pain Genitourinary: No Dysuria, No Urinary Frequency, No Hematuria, No Flank Pain Musculoskeletal: No joint pain, No Myalgias, No Joint Swelling Skin: No Skin Lesions, No rash Neuro: No Weakness Yes all other systems are reviewed and are negative Constitutional: Reports as per [facility] Past Medical History Attestation statement: The following information was validated with the patient. Source: old records reviewed Onset Date is defined in the Problem List Problems that require an onset date and time if occurred within 24 hrs of arrival to the ED Aortic Dissection and Rupture; Neurologic impairment; Cardiopulmonary Arrest; Endotracheal Intubation; Insertion or Replacement of Mechanical Circulatory Assist Device Social History Social History Alcohol intake: never Smoked in Last 30 Days: Yes Use of substances other than those prescribed or required for medical reasons: No Advance Directives: No Advance Directives Information Provided: No Physical Exam ED Vital Signs: Vital Signs - 24 hr 08/22/23 03:09 08/22/23 06:00 08/22/23 08:52 Temperature 99.8 F 97.1 F Pulse Rate 54 56 57 Respiratory Rate 18 20 17 Blood Pressure 228/98 H 212/86 H 194/73 H Pulse Oximetry 97 99 97 Oxygen Delivery Method Room Air Room Air Room Air BMI result Body Mass Index 29.7 Const General: cooperative, healthy appearing and no acute distress Orientation/consciousness: patient oriented x3 Limitations: no limitations HENMT Head: Yes normal to inspection and Yes atraumatic Ears: hearing grossly normal bilaterally General nose exam: Normal external nose present Face and sinus: Yes normal facial exam Eyes General: appearance normal, both eyes and all related structures EOM: EOMs intact bilaterally Neck Neck: Yes normal visual inspection and Yes no meningeal signs Resp Effort & Inspection: normal respiratory effort and no respiratory distress Auscultation: clear to auscultation bilaterally Cardio Rate: regular rate Heart sounds: S1 normal heart sound present and S2 normal heart sound present GI Inspection: Yes normal to inspection Palpation (GI): Soft to palpation, Tenderness to palpation present (GI) in the epigastrum, in the LLQ, in the LUQ and in the RUQ, no guarding and not rigid General: Yes no CVA tenderness Back/Spine/Pelvis Back: no CVA tenderness Skin Rashes: no rashes Wounds: no wounds Neuro General: patient oriented x3, tone normal and no meningeal signs Cranial nerves: Yes CN's II-XII intact bilaterally Gait exam (Neuro): Normal gait present Extrem General: Yes normal to inspection Course Course Course Narrative: -1007--no leukocytosis. Labs otherwise reassuring. Chronically elevated AST. -COVID/flu/RSV negative CT abdomen pelvis w IV con IMPRESSION: * No acute abnormalities. No evidence of inflammation or obstruction along the gastrointestinal tract. * The common duct and pancreatic duct are chronically dilated, unchanged compared to 11/09/2022. The specific cause of the ductal dilatation is uncertain. There is no visible obstructing pancreatic or ampullary mass. Query if there is any history of an ampullary stenosis. Note that prior abdomen CT reports suggested consideration for ERCP or MRCP evaluation. * There appears to be trace residual right pleural effusion, significantly decreased compared to 01/08/2023. > on re-evaluation patient reports symptomatic improvement. Abdomen is soft nontender. Will p.o. trial -patient tolerated p.o. without nausea, vomiting or pain. Feels comfortable for discharge at this time Results discussed with patient including worrisome signs and symptoms and strict return precautions, a needed close follow-up with Gastroenterology for chronically dilated ducts discussed when to return to the emergency department. They verbalized understanding and feel safe for discharge at this time. Medical Decision Making Medical Decision Making [facility] Narrative: 63-year-old male with a past medical history of hypertension presenting to the ED via EMS complaining of epigastric/upper abdominal pain, nausea, vomiting, and diarrhea x1 episode since 03:00. On exam hypertensive, NAD/nontoxic appearing, abdomen soft with upper and left lower quadrant tenderness, no rebound or guarding. Concern for pancreatitis vs cholecystitis/cholelithiasis vs diverticulitis vs gastritis. Lower suspicion for renal stone/zeferino Plan: Labs, UA, CT AP, IVF, GI cocktail, we evaluate Please refer to course for remaining clinical decision making, interpretation of labs/imaging results, and discussions with consultants and/or family members. Differential Diagnosis Differential Diagnoses: The differential diagnosis associated with the presentation includes As above Admission/Observation Consideration of admission/observation: Escalation of care including admission/observation considered Lab Data [facility] Lab Attestation statement: I reviewed the patient's lab results. 08/22/23 03:26 08/22/23 03:26 Labs: Lab Results 08/22/23 08/22/23 Range/Units 03:26 03:31 WBC 8.4 (4.8-10.8) X10*3/uL RBC 4.57 L (4.60-5.80) X10*6/uL Hgb 14.0 (14.0-18.0) g/dl Hct 41.8 L (42.0-52.0) % MCV 91.5 (80.0-98.0) fL MCH 30.6 (27.0-33.0) pg MCHC 33.5 (31.0-36.0) g/dl RDW 11.9 (11.0-16.0) % Plt Count 235 (160-400) X10*3/uL MPV 10.2 (9.4-12.4) fL Immature Gran % (Auto) 0.2 (0.0-0.4) % Neut % (Auto) 64.8 (45-73) % Lymph % (Auto) 25.3 (20-40) % [place] % (Auto) 7.7 (2-11) % Eos % (Auto) 1.5 (0-4) % Baso % (Auto) 0.5 (0-2) % Lymph # (Auto) 2.1 (1.2-4.9) X10*3/uL [place] # (Auto) 0.7 (0.1-1.2) X10*3/uL Eos # (Auto) 0.1 (0.0-0.4) X10*3/uL Baso # (Auto) 0.0 (0.0-0.2) X10*3/uL Abs Immat Gran (auto) 0.02 (0.00-0.03) X10*3/uL Absolute Neuts (auto) 5.4 (2.0-8.3) x10*3/uL Absolute Nucleated RBC 0.000 (0.0-0.012) X10*3/uL Nucleated RBC % (auto) 0.0 (0.0-0.2) /100WBC Sodium 140 (135-145) mmol/L Potassium 3.5 (3.3-5.1) mmol/L Chloride 104 (96-108) mmol/L Carbon Dioxide 25 (22-29) mmol/L Anion Gap 15 (12-20) BUN 11 (9-16) mg/dL Creatinine 0.79 (0.5-1.4) mg/dL Estim Creat Clear Calc 106.7 Estimated GFR > 60 Random Glucose 129 H (60-115) mg/dL Calcium 8.9 (8.4-10.2) mg/dL Magnesium 2.0 (1.6-2.6) mg/dL Total Bilirubin 1.0 (0.0-1.0) mg/dL Direct Bilirubin 0.5 (0.0-0.5) mg/dL AST 38 H (5-37) U/L ALT 28 (0-40) U/L Alkaline Phosphatase 127 H (39-117) U/L Total Protein 8.2 H (6.5-8.0) g/dL Albumin 3.9 (3.5-5.0) g/dL Lipase 12 (8-78) U/L Influenza Type A (PCR) NEGATIVE (Negative) Influenza Type B (PCR) NEGATIVE (Negative) RSV RNA Qual (PCR) NEGATIVE (Negative) SARS-CoV-2 RNA (RT-PCR) NEGATIVE (Negative) Independent Interpretation I performed an independent interpretation of an: CT Scan Radiology Impression Discussion of test interpretation with radiology: I have reviewed the radiologist's reading. Independent Historian Clinical information obtained from an independent historian. History obtained from or confirmed by: EMS External Record Review External record reviewed: Inpatient record, Office record, Outpatient record, Prior outpatient labs, Prior outpatient radiology, Primary care record and Outside ED record Tests considered The following testing was considered but not selected: As above Prescription Management I considered prescription management with: Pain Medication Chronic Conditions Patient?s care impacted by: Hypertension Medications Administered Discontinued Medications Generic Name Dose Route Start Last Admin Trade Name Freq PRN Reason Stop Dose Admin Al Hydroxide/Mg Hydroxide 30 ml 08/22/23 07:35 08/22/23 07:47 Magnesium Hydrox/Alum Hydrox 30 Ml Oral.Susp PO 08/22/23 07:36 30 ml ONCE ONE Administration Famotidine 20 mg 08/22/23 07:35 08/22/23 07:46 Famotidine/Pf 20 Mg/2 Ml Vial IVPUSH 08/22/23 07:36 20 mg ONCE ONE Administration Hydrochlorothiazide 25 mg 08/22/23 07:22 08/22/23 07:47 Hydrochlorothiazide 25 Mg Tablet PO 08/22/23 07:23 25 mg ONCE ONE Administration Protocol Sodium Chloride 1,000 mls @ 999 mls/hr 08/22/23 06:45 08/22/23 10:28 Ns IV 08/22/23 07:45 Infused .Q1H1M PACO Infusion Iohexol 100 ml 08/22/23 08:27 08/22/23 08:27 Iohexol 350 Mg/Ml 100 Ml Infus..Btl IV 08/22/23 08:28 85 ml ONCE ONE Administration Ketorolac Tromethamine 15 mg 08/22/23 06:44 08/22/23 07:46 Ketorolac Tromethamine 15 Mg/Ml Vial IVPUSH 08/22/23 06:45 15 mg ONCE ONE Administration Lisinopril 40 mg 08/22/23 07:22 08/22/23 07:47 Lisinopril 40 Mg Tablet PO 08/22/23 07:23 40 mg ONCE ONE Administration Protocol Ondansetron HCl 4 mg 08/22/23 04:17 08/22/23 04:21 Ondansetron Hcl 4 Mg/2 Ml Vial IVPUSH 08/22/23 04:18 4 mg ONCE ONE Administration Discharge Plan Discharge Clinical Impression: Abdominal pain Patient Disposition: Home, Self-Care Instructions: Abdominal Pain (ED) Additional Instructions: Your blood work was reassuring. You CT scan shows chronically dilated common bile duct and pancreatic duct, this needs to be followed up with gastroenterology outpatient Avoid spicy foods, sweets, caffeine and chocolate Follow-up with your doctors well If symptoms persist or worsen/pain becomes unbearable, you are unable to eat or drink or have fever return to the ED Prescriptions: New alum-mag hydroxide-simeth [Maalox Advanced] 200-200-20 mg/5 mL suspension 5 ml PO 5XD PRN (Reason: dyspepsia) Qty: 30 0RF Rx Instructions: administer between meals and at bedtime No Action acetaminophen [Tylenol Extra Strength] 500 mg tablet 500 mg PO Q6H PRN (Reason: fever or pain) Qty: 14 0RF lidocaine [Lidoderm] 5 % adhesive patch,medicated 1 patch topical DAILY MDD remove after 12 hours PRN (Reason: pain) Qty: 30 0RF Rx Instructions: leave on most painful area for up to 12 hrs naproxen 500 mg tablet 500 mg PO BID PRN (Reason: pain) 10 Days Qty: 20 0RF cyclobenzaprine 5 mg tablet 5 mg PO Q8H PRN (Reason: pain (scale score 7-10)) 5 Days Qty: 14 0RF omeprazole 20 mg capsule,delayed release(DR/EC) 20 mg PO DAILY 30 Days Qty: 30 0RF Gaviscon Extra Strength 254-237.5 mg/5 mL suspension 10 ml PO QID PRN (Reason: dyspepsia) Qty: 355 0RF oseltamivir [Tamiflu] 75 mg capsule 75 mg PO Q12H 5 Days Qty: 10 0RF Ref[facility]: [facility] [Provider Group] Interventions: ED Discharge Assessment Last Done: 08/22/23 10:29 Discharge Date/Time: 08/22/23 10:29
[2023-08-22] MEDS: 0.9 % Sodium Chloride 1,000 ML 999 ML IV (07:42)
[2023-08-22] MEDS: Famotidine/PF 20 MG/2 ML VIAL IVPUSH (07:46)
[2023-08-22] MEDS: Ketorolac Tromethamine 15 MG/ML VIAL IVPUSH (07:46)
[2023-08-22] MEDS: lisinopriL 40 MG TABLET PO (07:47)
[2023-08-22] MEDS: hydroCHLOROthiazide 25 MG TABLET PO (07:47)
[2023-08-22] MEDS: Magnesium Hydrox/Alum Hydrox 30 ML ORAL.SUSP PO (07:47)
[2023-08-22] MEDS: iohexoL 350 MG/ML 100 ML INFUS..BTL IV (08:27)
[2023-08-22 08:52] VITALS: BP 194/73; PULSE 57; RESP 17; O2SAT 97
== END 2023-08-22 10:29 | disposition home or self-care (01) ==
PROVIDERS: Physician Assistant; Emergency Provider Emergency Medicine
DX: R10.13 Epigastric pain (principal); Z20.822 Contact with and (suspected) exposure to COVID-19; Z20.828 Contact with and (suspected) exposure to other viral communicable diseases; R11.2 Nausea with vomiting, unspecified; R93.5 Abnormal findings on diagnostic imaging of other abdominal regions, including retroperitoneum
CPT/HCPCS: 0241U; 36415; 74177; 80053; 82248; 83690; 83735; 85025; 93005; 96361; 96374; 96375; 99284; 99285; J1885; J2405; Q9967

== ENCOUNTER → 2023-08-22 03:26 | Outpatient (BNV) | payer OTHER, SELFPAY | PROVIDERS: Emergency Provider Emergency Medicine; Visit Provider Internal Medicine Cardiovascular Disease | DX: R10.9 Unspecified abdominal pain (principal) | CPT/HCPCS: 93010 ==

== ENCOUNTER 2025-02-07 12:25 | Emergency (ER) | payer OTHER, SELFPAY ==
--- NOTE | ~2025-02-07 | CT_ITS ---
EXAMINATION: CT ABDOMEN AND PELVIS WITH CONTRAST CLINICAL INFORMATION: Left lower quadrant pain, groin pain, diarrhea. DLP: 786 mGY*cm COMPARISON: August 22, 2023 TECHNIQUE: Multidetector volumetric images were obtained from the superior aspect of the liver through the pubic symphysis following administration 85 mL of Omnipaque 350 intravenous contrast. Sagittal and coronal reformatted images were obtained on the technologist's workstation. Oral contrast: No This CT examination was performed using dose optimization techniques as appropriate, variously including the following: *Automated exposure control *Adjustment of mA and/or kV according to patient size (this includes techniques or standardized protocols for targeted exams where dose is matched to indication/reason for exam; i.e. extremities or head) *Use of iterative reconstruction technique FINDINGS: LUNG BASES: Chronic linear opacity is present in the lateral segment right middle lobe and posterior lateral lingula. Mild dependent atelectasis is present in the left lower lobe.b LIVER, GALLBLADDER, AND BILIARY TREE: The liver is normal in size, shape, and attenuation. No focal hepatic lesion or biliary ductal dilatation is present. The gallbladder is unremarkable. There is chronic mild stable intrahepatic biliary ductal dilation. PANCREAS: Pancreatic duct remains visible, unchanged. There is ill-defined hypodensity in the uncinate, unchanged. SPLEEN: Unremarkable. ADRENAL GLANDS: Unremarkable. KIDNEYS AND URETERS: Again seen are simple renal cysts, right greater than left. BLADDER: There is mild chronic thickening in the anterior wall of the bladder. GASTROINTESTINAL TRACT: The small and large bowel are unremarkable. Appendix is again nonvisualized. No pericecal formation is present. ABDOMINAL WALL: No significant hernia is appreciated. LYMPH NODES: Normal. VASCULAR: Unremarkable. PELVIC VISCERA: Unremarkable. OSSEOUS STRUCTURES: Again seen is severe degenerative disc disease and facet arthropathy at L3-4 and L4-5. Changes of osteoarthritis are present in the hip joints, mild to moderate right and mild left. CT/CT abdomen pelvis w IV con IMPRESSION: No acute abnormality. Stable chronic mild intrahepatic and extrahepatic biliary duct dilation and mild pancreatic duct dilation. Fleischner guidelines were followed. Electronically signed by: Chapincito Tony MD 02/07/2025 02:21 PM EDT
[2025-02-07 12:34] VITALS: BP 166/64; BP 220/110; PULSE 65; PULSE 88; RESP 18; TEMP 37.1; O2SAT 94; O2SAT 96; BMI 31.7
--- NOTE | 2025-02-07 12:44 | PC.NURSE ---
patient a&ox3, c/o 8/10 lt groin pain, pt states he was lifting boxes prior to the pain starting, also c/o dizziness. stoker erector and servicer applied- nsr on monitor, call campos within reach, pt awaiting provider.
--- OUTSIDE RECORDS SUMMARY | 2025-02-07 12:55 | XMS_ITS | Clinical Summary ---
Author Organization [facility] Address [address] [place] [address] Care Team Providers Care Entertainment Director Name Role Phone Mya Stauffer PA-C Primary Care Provider Source Comments PLEASE NOTE, if this patient is a minor, it may be UNLAWFUL to discuss sensitive information that is contained in these records (such as FAMILY PLANNING, MENTAL HEALTH or SUBSTANCE ABUSE) with the minor patient's parent or other person without the patient's specific authorization.[facility] Allergies Active Allergy Reactions Criticality Noted Date Comments Metoprolol Rash 05/04/2017 Medications NARCAN 4 mg/actuation nasal spray PER PSYCH 8 Active ARIPiprazole (ABILIFY) 5 mg tablet TOME MAN TABLETA TODOS LOS D 1 Active mirtazapine (REMERON) 15 mg tablet TOME MAN TABLETA TODOS LOS D AL ACOSTARSE 1 Active nicotine, polacrilex, (NICORETTE) 2 mg gumIndications:To bacco abuse Take 1 Each by mouth as needed for smoking cessation 110 Each 2 3 Active guanFACINE (TENEX) 2 mg tablet 3 Active melatonin 5 mg tab 3 Active ANTACID-ANTIGAS 200-200-20 mg/5 mL suspension TAKE 5 ML ORALLY 5 TIMES A DAY NEEDED FOR DYSPEPSIA ADMINISTER BETWEEN MEALS AND AT BEDTIME 4 Active blood pressure monitorIndication s:Essential hypertension Check BP once daily as needed. I10.0. Lifetime need. 1 Kit 4 Active caneIndications:C hronic midline low back pain with right-sided sciatica,Class 1 obesity due to excess calories with serious comorbidity and body mass index (BMI) of 31.0 to 31.9 in adult Use daily as needed. Lifetime need. 1 Each 4 Active MISCELLANEOUS MEDICAL SUPPLY MISCIndications:C hronic midline low back pain with right-sided sciatica,Class 1 obesity due to excess calories with serious comorbidity and body mass index (BMI) of 31.0 to 31.9 in adult Shower chair. Lifetime need. Use daily to prevent falls. 1 Each 4 Active MISCELLANEOUS MEDICAL SUPPLY MISCIndications:C hronic midline low back pain with right-sided sciatica,Class 1 obesity due to excess calories with serious comorbidity and body mass index (BMI) of 31.0 to 31.9 in adult Grab bars. Lifetime need. Use daily to prevent falls. 1 Each 4 Active lisinopriL 40 mg tabletIndications :Essential hypertension TOME 1 TABLETA POR VIA ORAL TODOS LOS [place] 90 Tablet 1 5 Active hydroCHLOROthiazi de (HYDRODIURIL) 25 mg tabletIndications :Essential hypertension TOME 1 TABLETA POR VIA ORAL TODOS [place] 90 Tablet 1 5 Active aspirin [address] tabletIndications :Intermittent chest pain TOME 1 TABLETA POR VIA ORAL TODOS [place] 90 Tablet 3 5 Active Active Problems Problem Noted Date Diagnosed Date Bipolar affective disorder, currently active ([facility]) 09/22/2020 Chronic midline low back pain with right-sided s ciatica 12/12/2019 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 ACS r/o. PE unlikely, f/u with PCP 05/17/18 Eval at Cardiology. Atypical CP c/w chostochondritis. Will get stress test d/t multiple CAD risk factors. 06/13/18- stress test negative. Follow up with PCP to get better control of BP. 09/22/[address] Castrejon. Recommends repeat stress test Alcohol use disorder 06/04/2017 Opioid use disorder 06/04/2017 Essential hypertension 05/19/2017 Overview (06/05/2017): 05/25/17 [place] [facility] [place]; initial complaint of HERNANDEZ. BP 200/100, pt with h/o EtOH and heroin abuse. Found to have temp and elevated WBC. Admitted for hypertensive urgency and concern of sepsis bacteremia. Discharged 05/29/17 on ASA 81 mg, folic acid 1 mg, lisinopril 40 mg, metoprolol 100 mg BID, multivitamin 1 mg, thiamine 100 mg Scabies 05/19/2017 Resolved Problems Problem Noted Date Diagnosed Date Resolved Date Pruritic rash 05/19/2017 09/24/2019 Overview (05/19/2017): 05/13/17 [facility] [place]. Given Benadryl Immunizations Immunization Administration Dates Next Due Flu, Preservative Free 10/22/2019 INFLUENZA, SEASONAL, INJECTABLE 05/27/2017 PNEUMOCOCCAL POLYSACCHARIDE PPV23 (Pneumovax 23) 01/20/2017 ZOSTER VACCINE, RECOMBINANT (SHINGRIX) 0 Social History Tobacco Use Types Packs/Day Years Used Date Smoking Tobacco: Every Day Cigarettes 0.5 45 Smokeless Tobacco: Never Tobacco Cessation:Ready to Q uit: Not Asked; Counseling Given: Not Answered Comments:Started smoking age 18 Alcohol Use Standard Drinks/Week Comments No 0 (1 standard drink = 0.6 oz pur e alcohol) Social Connections Answer Date Recorded Connectedness 0 05/09/2024 Financial Resource Strain Answer Date R ecorded Financial Resource Strain 0 2018 Stress Answer Date Recorded Stress 0 04/14/2019 Physical Activity Answer Date Recorded Physical Activity 0 04/14/2019 Food Insecurity Answer Date Recorded Food 0 05/16/2024 Transportation Needs Answer Date Record ed Transportation 0 04/14/2019 Housing Stability Answer Date Recorded Housing 0 04/14/2019 Safety and Environment Answer Date Azar rded Safety 0 04/14/2019 Utilities Answer Date Recorded Utilities 0 04/14/2019 Employment Answer Date Recorded Stress 0 05/09/2024 Sex and Gender Information Value Date Recorded Sex Assigned at Male 10/16/2017 12:31 PM PST Legal Sex Male 7:46 AM PDT Gender Identity Male 10/16/2017 12:31 PM PST Sexual Orientation Straight 10/16/2017 12 :31 PM PST Last Filed Vital Signs Vital Sign Reading Time Taken Comments Blood Pressure 164/84 04/26/2023 8:38 AM EDT Pulse 76 04/26/2023 8:38 AM EDT Temperature 36.9 C (98.4 F) 04/26/2023 8:38 AM EDT Respiratory Rate 18 04/26/2023 8:36 AM EDT Oxygen Saturation 97% 02/16/2021 3:15 PM EDT Inhaled Oxygen Concentration - - Weight 93 kg (205 lb) 04/26/2023 8:38 AM EDT Height 172.7 cm (5' 8 ) 04/26/2023 8:38 AM EDT Body Mass Index 31.17 04/26/2023 8:38 AM EDT Plan of Treatment Upcoming Encounters Date Type Department Care Team (Late st Contact Info) Description 02/10/2025 1:00 PM EDT Office Visit [facility] [address] [place] [phone] Yoel Fitch NP [address] [place] [address] Saranya Mendoza [address] [place] [id number] Health Maintenance Due Date Last Done Comments Anxiety Screening 1960 Medicare Annual Wellness Visit 01/14/1978 Imm-DTaP/Tdap/Td (1 - Tdap) 01/14/1979 CT Colonography 01/14/2005 Colonoscopy 01/14/2005 Colorectal Cancer Screening 01/14/2005 FIT/gFOBT 01/14/2005 Fecal DNA 01/14/2005 Flexible Sigmoidoscopy 01/14/2005 Imm-Pneumococcal 65+ (2 of 2 - PCV) 01/20/2018 01/20/2017 Imm-Hepatitis B (1 of 3 - Ri sk 3-dose series) 2020 Imm-Zoster, Recombinant (2 of 2) 08/11/2020 06/16/20 [id number] ( season) 2024 Diabetes Screening 04/26/2024 04/26/2023, 0 04/26/2023, 09/09/2021, Additional history exists Lipid Screening 04/26/2024 04/26/2023, 08/22, 05/19/2017 Alcohol and Drug Screen 08/21/2024 04/26/20 23, 09/22/2020, 10/22/2019, Additional history exists Depression Annual Screen 08/21/2024 024, 10/16/2017, 05/04/2017 Tobacco Cessation Counseling (#1) 08/30/2024 08/31/2023, 04/26/2023, 02/16/2021, Additional history exists Tobacco Screening 08/31/2024 08/31/2023, , 02/16/2021, Additional history exists Abdominal Aortic Aneurysm Screening 01/14/2025 Falls Prevention 01/14/2025 Imm-Influenza (Season Ended) 2025 10/22/2019, 05/27/2017 HIV Screening Completed 09/09/2021 Procedures Procedure Name Priority Date/Time Associated Diagnosis Comments REFERRAL SCANNED DOCUMENT 12/23/2024 3:00 AM EDT COMPREHENSIVE METABOLIC PANEL Routine 04/26/2023 9:21 AM EDT Essential hypertension LIPID PANEL Routine 04/26/2023 9:21 AM EDT Essential hypertension HIV 1/2 AG & AB W/RFLX (4TH GEN) Routine 09/09/2021 8:50 AM EST Screening for HIV (human immunodeficiency virus) from Last 3 Months or Most Recently Relevant to Health Maintenance Results * REFERRAL SCANNED DOCUMENT (12/23/2024 3:00 AM EDT) 12/23/2024 3:00 AM EDT us [facility] Provider Default SCAN REFERRAL Final Resu lt * LIPID PANEL (04/26/2023 9:21 AM EDT) Pathologist [facility] CHOLESTEROL, TOTAL 185 <200 mg/dL [facility] HDL CHOLESTEROL 99 > OR = 40 mg/dL [facility] TRIGLYCERIDES 71 <150 mg/dL [facility] LDL-CHOLESTEROL 71 99 mg/dL (calc) [facility] Comment: Reference range: <100 Desirable range <100 mg/dL for primary prevention; <70 mg/dL for patients with CHD or diabetic patients with > or = 2 CHD risk factors. LDL-C is now calculated using the Michael calculation, which is a validated novel method providing better accuracy than the Friedewald equation in the estimation of LDL-C. Don SS et al. BRITTNEY. 2013;310(19): 0855-6117 (http://education.TraktoPRO/faq/FRP993) CHOL/HDLC RATIO 1.9 <5.0 (calc) [facility] NON-HDL CHOLESTEROL 86 <130 mg/dL (calc) [facility] Comment: For patients with diabetes plus 1 major ASCVD risk factor, treating to a non-HDL-C goal of <100 mg/dL (LDL-C of <70 mg/dL) is considered a therapeutic option. Blood Blood / Unknown 04/26/2023 9 :21 AM EDT 04/26/2023 9:22 AM EDT [facility] - BLOOD DRAW Final Re sult [facility] [address] [address], [facility] [address] [place] [address] * (ABNORMAL) COMPREHENSIVE METABOLIC PANEL (04/26/2023 9:21 AM EDT) [facility] GLUCOSE 86 65 - 99 mg/dL [facility] Comment: Fasting reference interval UREA NITROGEN (BUN) 11 7 - 25 mg/dL [facility] CREATININE (blood) 0.85 0.70 - 1.35 mg/dL [facility] EGFR 98 > OR = 60 mL/min/1. 73m2 [facility] BUN/CREATININE RATIO SEE NOTE: [facility] Comment: Not Reported: BUN and Creatinine are within reference range. SODIUM 138 135 - 146 mmol/L [facility] POTASSIUM 5.1 3.5 - 5.3 mmol/L [facility] CHLORIDE 98 98 - 110 mmol/L [facility] CARBON DIOXIDE 32 20 - 32 mmol/L [facility] CALCIUM 9.1 8.6 - 10.3 mg/dL [facility] PROTEIN, TOTAL 8.0 6.1 - 8.1 g/dL [facility] ALBUMIN 4.3 3.6 - 5.1 g/dL [facility] GLOBULIN 3.7 1.9 - 3.7 g/dL (calc) [facility] ALBUMIN/GLOBULI N RATIO 1.2 1.0 - 2.5 (calc) [facility] BILIRUBIN, TOTAL 0.8 0.2 - 1.2 mg/dL [facility] ALKALINE PHOSPHATASE 128 35 - 144 U/L [facility] AST 47(H) 10 - 35 U/L [facility] ALT 42 9 - 46 U/L [facility] Blood Blood / Unknown 04/26/2023 9 :21 AM EDT 04/26/2023 9:22 AM EDT [facility] - BLOOD DRAW Edited R esult - Final [facility] [address] [address], [facility] [address] [phone] * HIV 1/2 AG & AB W/RFLX (4TH GEN) (09/09/2021 8:50 AM EST) HIV AG/AB, 4TH GEN NON-REAC TIVE NON-REAC TIVE [facility] Comment: HIV-1 antigen and HIV-1/HIV-2 antibodies were not detected. There is no laboratory evidence of HIV infection. PLEASE NOTE: This information has been disclosed to you from records whose confidentiality may be protected by state law. If your state requires such protection, then the state law prohibits you from making any further disclosure of the information without the specific written consent of the person to whom it pertains, or as otherwise permitted by law. A general authorization for the release of medical or other information is NOT sufficient for this purpose. For additional information please refer to http://education.1o1Media/faq/NBT885 (This link is being provided for informational/ educational purposes only.) The performance of this assay has not been clinically validated in patients less than 2 years old. Blood Blood / Unknown 09/09/2021 8 :50 AM EST 09/09/2021 8:51 AM EST Narrative [employer] [facility] [employer] - 09/09/2021 6:40 PM EST FASTING:YES [facility] - BLOOD DRAW Final Re sult [facility] [address] [address], [facility] [address] [address] from Last 3 Months or Most Recently Relevant to Health Maintenance Insurance [facility] [place] [facility] Care Teams Entertainment Director Relationship Specialty Start Date End Date Mya Stauffer PA-C [address] [place] [id number] PCP - General Primary Care 02/19/24
--- NOTE | 2025-02-07 12:57 | ED.GENADULT ---
HPI - General Adult General Chief complaint: General Medical Stated complaint: ABD pain/Hypertensive 228/110 Time Seen by Provider: 02/07/25 12:32 Source: patient and EMS Mode of arrival: EMS Limitations: language barrier (Marshallese-speaking faculty i on call medical assistant utilized) History of Present Illness ED Provider: Miguelina Prince NP HPI narrative: Patient is a 65-year-old male who presents emergency department for evaluation. He is experiencing left lower quadrant abdominal/groin pain with onset 2 days ago. He does admit to recent heavy lifting of boxes but states that the pain began prior to the lifting. He has a associated nausea and a couple episodes of soft stools since yesterday. Denies associated hematochezia/melena. He does admit to urinary frequency but denies dysuria, hematuria, purulent penile discharge. No associated back pain. Admits to a history of similar pain many years ago which he attributes to a ? Inguinal hernia of which he underwent surgical repair. No fevers or chills. No recent unintentional weight loss, night sweats, family history of colon cancer. No associated testicular pain or swelling. Related Data Previous Rx's ?Medication ?Instructions ?Recorded acetaminophen 500 mg tablet 500 mg PO Q6H PRN fever or pain 04/21/22 (Tylenol Extra Strength) #14 tabs cyclobenzaprine 5 mg tablet 5 mg PO Q8H PRN pain (scale score 04/21/22 7-10) 5 days #14 tabs lidocaine 5 % topical patch 1 patch topical DAILY PRN pain #30 04/21/22 (Lidoderm) ea naproxen 500 mg tablet 500 mg PO BID PRN pain 10 days #20 04/21/22 tabs aluminum hydrox-magnesium carb 254 10 ml PO QID PRN dyspepsia #355 mL 01/08/23 mg-237.5 mg/5 mL oral suspension (Gaviscon Extra Strength) omeprazole 20 mg capsule,delayed 20 mg PO DAILY 30 days #30 caps 01/08/23 release oseltamivir 75 mg capsule (Tamiflu) 75 mg PO Q12H 5 days #10 caps 07/25/23 aluminum-mag hydroxide-simethicone 5 ml PO 5XD PRN dyspepsia #30 mL 08/22/23 200 mg-200 mg-20 mg/5 mL oral susp (Maalox Advanced) Allergies Allergy/AdvReac Type Severity Reaction Status Date / Time No Known Allergies Allergy Mild NONE Verified 02/07/25 12:36 Review of Systems Review of Systems: Yes all other systems are reviewed and are negative [facility] Past Medical History Attestation statement: The following information was validated with the patient. Source: old records reviewed Social History Social History Alcohol intake: never Physical Exam ED Vital Signs: Vital Signs - 24 hr 02/07/25 12:34 02/07/25 14:00 02/07/25 15:40 Temperature 98.7 F 98.7 F 98.1 F Pulse Rate 65 55 51 Respiratory Rate 18 16 17 Blood Pressure 166/64 H 143/64 H 170/71 H Pulse Oximetry 94 94 94 Oxygen Delivery Method Room Air Room Air Room Air 02/07/25 16:31 Temperature 98.0 F Pulse Rate 63 Respiratory Rate 16 Blood Pressure 168/73 H Pulse Oximetry 95 Oxygen Delivery Method Room Air BMI result Body Mass Index 31.7 Appearance: Alert.?Oriented to person, place and time. No acute distress.?Normal affect. Eyes: Pupils equal, round and reactive to light.? ENT: Pharynx normal.?? Neck: Normal inspection.? Neck supple.?? CVS: Heart sounds normal. Normal heart rate and rhythm.? Pulses normal.?? Respiratory: No respiratory distress.? Lung sounds clear to auscultation bilaterally?? Abdomen: Soft with mild left lower quadrant tenderness upon palpation no rigidity or guarding. No exquisite tenderness upon palpation to the left inguinal region without appreciable masses. No rashes or lesions. Normoactive bowel sounds. No pulsatile mass.?? Skin: Skin warm and dry.? Normal skin color.? Extremities: No lower extremity edema.? Neuro: Moves all extremities spontaneously. Sensation intact bilaterally. No focal neuro deficits. Ambulates with normal steady gait. Course Reevaluation(s) Reevaluation #1: CT of the abdomen and pelvis without acute identifiable cause for symptoms, no visible hernia, no diverticulitis. Pain has improved. I suspect that this likely may be some degree of musculoskeletal strain given his recurrent heavy lifting. Discussed conservative treatment, outpatient follow-up with primary care provider and strict return precautions. All questions answered Medications Administered Discontinued Medications Generic Name Dose Route Start Last Admin Trade Name Freq PRN Reason Stop Dose Admin Sodium Chloride 1,000 mls @ 999 mls/hr 02/07/25 13:30 02/07/25 15:12 Ns IV 02/07/25 14:30 Infused .Q1H1M PACO Infusion Iohexol 100 ml 02/07/25 14:02 02/07/25 14:02 Iohexol 350 Mg/Ml 100 Ml Infus..Btl IV 02/07/25 14:03 85 ml ONCE ONE Administration Morphine Sulfate 4 mg 02/07/25 13:20 02/07/25 14:12 Morphine Sulfate 4 Mg/Ml Cartridge IVPUSH 02/07/25 13:21 4 mg ONCE ONE Administration Protocol Ondansetron HCl 4 mg 02/07/25 13:20 02/07/25 14:12 Ondansetron Hcl 4 Mg/2 Ml Vial IVPUSH 02/07/25 13:21 4 mg ONCE ONE Administration Medical Decision Making Medical Decision Making [facility] Narrative: Patient is a 65-year-old male with past medical history of hypertension who presents emergency department for evaluation of left lower abdominal/groin pain with onset 2 days ago, nausea and a couple episodes of loose stools. Admits to frequent daily heavy lifting, onset of pain was prior to his most recent episode of heavy lifting. Has a history of what I assume is an inguinal hernia for which he underwent repair many years ago in [place]. I do not appreciate a hernia on examination at this time. Will obtain CBC to evaluate for leukocytosis/ anemia, CMP and lipase to evaluate for abnormal electrolytes /abnormal renal function/ abnormal hepatic/biliary function, EKG and troponin to evaluate for ischemia/ACS. Urinalysis. CT of the abdomen pelvis to evaluate further for potential hernia, lower suspicion for strangulation/incarceration based on physical exam, diverticulitis colitis. Patient will receive morphine IV for pain and Zofran IV for nausea. Differential Diagnosis Differential Diagnoses: The differential diagnosis associated with the presentation includes (See narrative above) Admission/Observation Consideration of admission/observation: Escalation of care including admission/observation considered Lab Data [facility] Lab Attestation statement: I reviewed the patient's lab results. 02/07/25 13:15 02/07/25 13:15 Labs: Lab Results 02/07/25 02/07/25 Range/Units 13:15 14:37 WBC 7.8 (4.8-10.8) X10*3/uL RBC 4.05 L (4.60-5.80) X10*6/uL Hgb 12.3 L (14.0-18.0) g/dl Hct 38.4 L (42.0-52.0) % MCV 94.8 (80.0-98.0) fL MCH 30.4 (27.0-33.0) pg MCHC 32.0 (31.0-36.0) g/dl RDW 11.9 (11.0-16.0) % Plt Count 216 (160-400) X10*3/uL MPV 10.0 (9.4-12.4) fL Immature Gran % (Auto) 0.3 (0.0-0.4) % Neut % (Auto) 63.8 (45-73) % Lymph % (Auto) 23.8 (20-40) % [place] % (Auto) 8.0 (2-11) % Eos % (Auto) 3.5 (0-4) % Baso % (Auto) 0.6 (0-2) % Lymph # (Auto) 1.9 (1.2-4.9) X10*3/uL [place] # (Auto) 0.6 (0.1-1.2) X10*3/uL Eos # (Auto) 0.3 (0.0-0.4) X10*3/uL Baso # (Auto) 0.1 (0.0-0.2) X10*3/uL Abs Immat Gran (auto) 0.02 (0.00-0.03) X10*3/uL Absolute Neuts (auto) 5.0 (2.0-8.3) x10*3/uL Absolute Nucleated RBC 0.000 (0.0-0.012) X10*3/uL Nucleated RBC % (auto) 0.0 (0.0-0.2) /100WBC Sodium 141 (135-145) mmol/L Potassium 3.9 (3.3-5.1) mmol/L Chloride 102 (96-108) mmol/L Carbon Dioxide 33 H (22-29) mmol/L Anion Gap 10 L (12-20) BUN 13 (9-16) mg/dL Creatinine 0.69 (0.5-1.4) mg/dL Estim Creat Clear Calc 122.8 Estimated GFR > 60 Random Glucose 98 (60-115) mg/dL Calcium 8.8 (8.4-10.2) mg/dL Total Bilirubin 0.8 (0.0-1.0) mg/dL AST 64 H (5-37) U/L ALT 50 H (0-40) U/L Alkaline Phosphatase 106 (39-117) U/L Troponin I High Sens 5.9 (<3.5-35.0) ng/L Total Protein 7.3 (6.5-8.0) g/dL Albumin 3.8 (3.5-5.0) g/dL Lipase 11 (8-78) U/L Urine Color Yellow Urine Appearance Clear Urine pH 8.5 (5.0-9.0) Ur Specific Wray >= 1.030 H (1.005-1.025) Urine Protein Trace (Neg-Trace) mg/dL Urine Glucose (UA) Negative (Negative) mg/dL Urine Ketones Negative (Negative) mg/dL Urine Blood Negative (Negative) Urine Nitrite Negative (Negative) Ur Leukocyte Esterase Negative (Negative) Independent Interpretation I performed an independent interpretation of an: EKG (Sinus bradycardia, ventricular rate of 59, normal ALBA, QTC 457, no ST-elevation) Radiology Impression Discussion of test interpretation with radiology: I have reviewed the radiologist's reading. Radiologist Impression: CT/CT abdomen pelvis w IV con IMPRESSION: No acute abnormality. Stable chronic mild intrahepatic and extrahepatic biliary duct dilation and mild pancreatic duct dilation. Fleischner guidelines were followed. External Record Review External record reviewed: Outpatient record Chronic Conditions Patient?s care impacted by: Other (See narrative above) Discharge Plan Discharge Clinical Impression: Left inguinal pain Patient Disposition: Home, Self-Care Additional Instructions: Imaging today did not show evidence of a reoccurring hernia nor alternative cause for your pain. Given your frequent heavy lifting I suspect that this is likely a strain of the musculature within this region. Be sure to rest over the next few days, apply ice/heat for 10-15 minutes 4-6 times daily. You can take ibuprofen 200 mg, 3 tablets (600mg) every 6-8 hours as needed for pain, in addition to Tylenol 500 mg, 2 tablets (1,000mg) every 4-6 hours as needed for pain, but not to exceed 3 doses daily (3,000mg).? Refrain from heavy lifting. Follow-up with your primary care doctor. Return to emergency department any new or worsening symptoms or concerns Prescriptions: No Action acetaminophen [Tylenol Extra Strength] 500 mg tablet 500 mg PO Q6H PRN (Reason: fever or pain) Qty: 14 0RF lidocaine [Lidoderm] 5 % adhesive patch,medicated 1 patch topical DAILY MDD remove after 12 hours PRN (Reason: pain) Qty: 30 0RF Rx Instructions: leave on most painful area for up to 12 hrs naproxen 500 mg tablet 500 mg PO BID PRN (Reason: pain) 10 Days Qty: 20 0RF cyclobenzaprine 5 mg tablet 5 mg PO Q8H PRN (Reason: pain (scale score 7-10)) 5 Days Qty: 14 0RF omeprazole 20 mg capsule,delayed release(DR/EC) 20 mg PO DAILY 30 Days Qty: 30 0RF Gaviscon Extra Strength 254-237.5 mg/5 mL suspension 10 ml PO QID PRN (Reason: dyspepsia) Qty: 355 0RF oseltamivir [Tamiflu] 75 mg capsule 75 mg PO Q12H 5 Days Qty: 10 0RF alum-mag hydroxide-simeth [Maalox Advanced] 200-200-20 mg/5 mL suspension 5 ml PO 5XD PRN (Reason: dyspepsia) Qty: 30 0RF Rx Instructions: administer between meals and at bedtime Interventions: ED Discharge Assessment Last Done: 02/07/25 16:31 Discharge Date/Time: 02/07/25 16:36 Print Language: Marshallese
--- NOTE | 2025-02-07 13:06 | ECG_ITS ---
Test Reason : abd pain Blood Pressure : */* mmHG Vent. Rate : 59 BPM Atrial Rate : 59 BPM P-R Int : 134 ms QRS Dur : 94 ms QT Int : 462 ms P-R-T Axes : 7 -28 38 degrees QTcB Int : 457 ms Sinus bradycardia Otherwise normal ECG When compared with ECG of 22-Aug-2023 03:26, No significant change was found Referred By: Miguelina Prince Electronically Signed By: Angel Holden
[2025-02-07 13:19] LABS: MANUAL DIFF FLAG NO
[2025-02-07 13:23] LABS: Basophils Absolute Auto 0.1 X10*3/uL (0.0-0.2); Basophils Percent Auto 0.6 % (0-2); Eosinophils Absolute Auto 0.3 X10*3/uL (0.0-0.4); Eosinophils Percent Auto 3.5 % (0-4); Hematocrit 38.4 % (42.0-52.0); Hemoglobin 12.3 g/dl (14.0-18.0); Imm Gran Abs Auto 0.02 X10*3/uL (0.00-0.03); Imm Gran Pct Auto 0.3 % (0.0-0.4); Lymphocytes Absolute Auto 1.9 X10*3/uL (1.2-4.9); Lymphocytes Percent Auto 23.8 % (20-40); Mean Corpuscular Hemoglobin 30.4 pg (27.0-33.0); Mean Corpuscular Volume 94.8 fL (80.0-98.0); Monocytes Absolute Auto 0.6 X10*3/uL (0.1-1.2); Neutrophils Percent Auto 63.8 % (45-73); Platelet Count 216 X10*3/uL (160-400); Red Blood Count 4.05 X10*6/uL (4.60-5.80); Red Cell Distribution Width 11.9 % (11.0-16.0); White Blood Count 7.8 X10*3/uL (4.8-10.8)
[2025-02-07 13:46] LABS: Alanine Aminotransferase 50 U/L (0-40); Albumin Level 3.8 g/dL (3.5-5.0); Alkaline Phosphatase 106 U/L (39-117); Anion Gap 10 (12-20); Aspartate Amino Transferase 64 U/L (5-37); Bilirubin Total 0.8 mg/dL (0.0-1.0); Blood Urea Nitrogen 13 mg/dL (9-16); Calcium 8.8 mg/dL (8.4-10.2); Carbon Dioxide 33 mmol/L (22-29); Chloride 102 mmol/L (96-108); Creatinine Clr Calc Pharmacy 122.8; Estimated Glomerular Filt Rate > 60; Glucose Random 98 mg/dL (60-115); Lipase 11 U/L (8-78); Potassium 3.9 mmol/L (3.3-5.1); Sodium 141 mmol/L (135-145); Total Protein 7.3 g/dL (6.5-8.0)
[2025-02-07 13:55] LABS: Troponin-I High Sensitivity 5.9 ng/L (<3.5-35.0)
[2025-02-07 14:00] VITALS: BP 143/64; PULSE 55; RESP 16; TEMP 37.1; O2SAT 94
[2025-02-07] MEDS: iohexoL 350 MG/ML 100 ML INFUS..BTL IV (14:02)
[2025-02-07] MEDS: 0.9 % Sodium Chloride 1,000 ML 999 ML IV (14:11)
[2025-02-07] MEDS: Morphine Sulfate 4 MG/ML CARTRIDGE IVPUSH (14:12)
[2025-02-07] MEDS: ondansetron HCL 4 MG/2 ML VIAL IVPUSH (14:12)
[2025-02-07 14:45] LABS: Appearance Urine Clear; Color Urine Yellow; Glucose Urine UA Negative (Negative); Leukocyte Esterase Urine Negative (Negative); Nitrite Urine Negative (Negative); PH 8.5 (5.0-9.0); Specific Gravity - Urine >= 1.030 (1.005-1.025); Urine Blood Negative (Negative); Urine Ketones Negative (Negative); Urine Protein Trace mg/dL (Neg-Trace)
[2025-02-07 15:40] VITALS: BP 170/71; PULSE 51; RESP 17; TEMP 36.7; O2SAT 94
[2025-02-07 16:31] VITALS: BP 168/73; PULSE 63; RESP 16; TEMP 36.7; O2SAT 95
== END 2025-02-07 16:36 | disposition home or self-care (01) ==
PROVIDERS: Nurse Practitioner Family; Emergency Provider Emergency Medicine
DX: R10.2 Pelvic and perineal pain (principal); R11.0 Nausea; R10.32 Left lower quadrant pain; R00.1 Bradycardia, unspecified; R35.0 Frequency of micturition; I10 Essential (primary) hypertension; Z79.899 Other long term (current) drug therapy
CPT/HCPCS: 36415; 74177; 80053; 81003; 83690; 84484; 85025; 93005; 96361; 96374; 96375; 99284; J2270; J2405; Q9967

== ENCOUNTER → 2025-02-07 13:06 | Outpatient (BNV) | payer OTHER, SELFPAY | PROVIDERS: Emergency Provider Emergency Medicine; Visit Provider Internal Medicine Cardiovascular Disease | DX: R00.1 Bradycardia, unspecified (principal) | CPT/HCPCS: 93010 ==

== ENCOUNTER → 2025-02-07 13:20 | Outpatient (BNV) | payer OTHER, SELFPAY | PROVIDERS: Emergency Provider Emergency Medicine; Visit Provider Radiology Diagnostic Radiology | DX: R10.32 Left lower quadrant pain (principal) | CPT/HCPCS: 74177 ==

== ENCOUNTER 2025-02-13 10:54 | Emergency (ER) | payer OTHER, SELFPAY ==
[2025-02-13] VITALS (8 sets, daily range): BP systolic 163–211; BP diastolic 69–90; PULSE 44–58; RESP 18–20; TEMP -17.7–37; O2SAT 94–98; BMI 31.6
--- NOTE | ~2025-02-13 | CT_ITS ---
EXAMINATION: CT HEAD WITHOUT CONTRAST CLINICAL INFORMATION: Headache and dizziness COMPARISON: None available. TECHNIQUE: Contiguous axial imaging was performed from the skull base to vertex without intravenous administration of contrast. This CT examination was performed using dose optimization techniques as appropriate, variously including the following: *Automated exposure control *Adjustment of mA and/or kV according to patient size (this includes techniques or standardized protocols for targeted exams where dose is matched to indication/reason for exam; i.e. extremities or head) *Use of iterative reconstruction technique DLP: 715 mGY*cm FINDINGS: There is no acute ischemic change. There is no intracranial hemorrhage. Two and 1 cm long calcifications are present along the surface of the brain or in the CSF space or on the dura, right of midline, overlying the posterior right frontal lobe.. There is a third punctate calcification anterior to the anterior right frontal lobe, right of midline, likely in the subarachnoid space. There is no mass-effect or midline shift. Basal cisterns and ventricles are within normal limits for age/cerebral volume. Orbits are symmetrical and unremarkable. Paranasal sinuses and mastoid air cells are pneumatized. There are no bony abnormalities. CT/CT head/brain wo IV con IMPRESSION: No acute intracranial abnormality. Punctate and linear calcifications, as described above, in the subarachnoid space around the right frontal lobe. Punctate calcification could be related to neurocysticercosis, however, those types of calcifications are usually numerous rather than isolated. Linear calcifications could be related to remote subarachnoid hemorrhage or other trauma or idiopathic. Electronically signed by: Chapincito Tony MD 02/13/2025 12:49 PM EDT
--- NOTE | 2025-02-13 11:01 | ECG_ITS ---
Test Reason : dizziness Blood Pressure : */* mmHG Vent. Rate : 55 BPM Atrial Rate : 55 BPM P-R Int : 154 ms QRS Dur : 88 ms QT Int : 458 ms P-R-T Axes : 3 -38 24 degrees QTcB Int : 438 ms Sinus bradycardia Left axis deviation Abnormal ECG When compared with ECG of 07-Feb-2025 13:24, No significant change was found Referred By: Generic ED Physician Electronically Signed By: REJI KRUSE
--- NOTE | 2025-02-13 11:19 | PC.NURSE ---
65 M presenting from urgent care for nausea, dizziness, h/a and high BP since this morning. Hx HBP on medications. Pt now c/o chest pain 02/27. RR even and unlabored, denies SOB. Pt on aspirin but hasn't taken in 1 week. No other complaints. A+Ox4, namibian speaking.
[2025-02-13] MEDS: hydrALAZINE HCl 20 MG/ML VIAL 5 MG IVPUSH (11:35)
[2025-02-13 11:36] LABS: MANUAL DIFF FLAG NO
[2025-02-13] MEDS: Meclizine HCl 25 MG TABLET 50 MG PO (11:36)
[2025-02-13 11:38] LABS: Basophils Absolute Auto 0.1 X10*3/uL (0.0-0.2); Basophils Percent Auto 0.8 % (0-2); Eosinophils Absolute Auto 0.2 X10*3/uL (0.0-0.4); Eosinophils Percent Auto 3.2 % (0-4); Hematocrit 39.9 % (42.0-52.0); Imm Gran Abs Auto 0.02 X10*3/uL (0.00-0.03); Imm Gran Pct Auto 0.3 % (0.0-0.4); Lymphocytes Absolute Auto 1.5 X10*3/uL (1.2-4.9); Lymphocytes Percent Auto 23.1 % (20-40); Mean Corpuscular HGB Conc 32.6 g/dl (31.0-36.0); Mean Corpuscular Hemoglobin 30.9 pg (27.0-33.0); Mean Corpuscular Volume 94.8 fL (80.0-98.0); Monocytes Absolute Auto 0.6 X10*3/uL (0.1-1.2); Monocytes Percent Auto 9.4 % (2-11); Neutrophils Absolute Auto 4.2 x10*3/uL (2.0-8.3); Neutrophils Percent Auto 63.2 % (45-73); Platelet Count 213 X10*3/uL (160-400); Red Blood Count 4.21 X10*6/uL (4.60-5.80); Red Cell Distribution Width 11.9 % (11.0-16.0); White Blood Count 6.6 X10*3/uL (4.8-10.8)
--- NOTE | 2025-02-13 11:52 | ED_ITS ---
HPI - General Adult General Chief complaint: Dizziness Stated complaint: coming from UC, dizziness/n/v/HERNANDEZ, CP Time Seen by Provider: 02/13/25 11:06 Source: patient and RN notes reviewed Mode of arrival: EMS Limitations: language barrier History of Present Illness ED Provider: Irasema HPI narrative: 65-year-old male past medical history significant for hypertension for which she takes lisinopril and hydrochlorothiazide presents for evaluation of dizziness, headache. He also complains of central chest pain that started within the last 30 minutes in the emergency department. Patient reports that his headache and dizziness started this morning when he woke up around 6:00 a.m.. He states the symptoms woke him up from sleep He reports going to bed around 10 or 11 feeling well Denies any trauma to the head or neck. His symptoms are waxing and waning He reports having had similar symptoms in the past but denies any known diagnosis of vertigo He has not had any recent medication changes. He reports his blood pressure has been elevated today and he can not benefit down Related Data Previous Rx's ?Medication ?Instructions ?Recorded acetaminophen 500 mg tablet 500 mg PO Q6H PRN fever or pain 04/21/22 (Tylenol Extra Strength) #14 tabs cyclobenzaprine 5 mg tablet 5 mg PO Q8H PRN pain (scal e score 04/21/22 7-10) 5 days #14 tabs lidocaine 5 % topical patch 1 patch topical DAILY PRN pain #30 04/21/22 (Lidoderm) ea naproxen 500 mg tablet 500 mg PO BID PRN pain 10 da ys #20 04/21/22 tabs aluminum hydrox-magnesium carb 254 10 ml PO QID PRN dy spepsia #355 mL 01/08/23 mg-237.5 mg/5 mL oral suspension (Gaviscon Extra Strength) omeprazole 20 mg capsule,delayed 20 mg PO DAILY 30 day s #30 caps 01/08/23 release oseltamivir 75 mg capsule (Tamiflu) 75 mg PO Q12H 5 da ys #10 caps 07/25/23 aluminum-mag hydroxide-simethicone 5 ml PO 5XD PRN dys pepsia #30 mL 08/22/23 200 mg-200 mg-20 mg/5 mL oral susp (Maalox Advanced) Allergies Allergy/AdvReac Type Severity Reaction Status Date / Time No Known Allergies Allergy Mild NONE Verified 02/13/25 11:11 Review of Systems 2 Constitutional: Constitutional: Denies body ache(s), Denies chills, Denies fever(s), Denies frequent falls and Reports headache(s) ENT: Denies vertigo, Reports dizziness, Denies dry mouth and Reports headache(s) Cardiovascular: Cardiovascular: Reports chest pain, Reports chest pain at rest, Reports chest pain with activity and Denies dyspnea on exertion Respiratory: Respiratory: Denies cough and Denies dyspnea on exertion Gastrointestinal: Gastrointestinal: Denies abdominal pain, Denies nausea and Denies vomiting Musculoskeletal: Musculoskeletal: Denies back pain Integumentary/Breasts: Skin/Breast: Denies rash Neurologic: Denies Abnormal speech present, Denies vertigo, Reports dizziness, Denies frequent falls and Reports headache(s) Psychiatric: Psychiatric: Denies anxiety PMFSH Social History Social History Alcohol intake: never Smoked in Last 30 Days: No Use of substances other than those prescribed or required for medical reasons: No Advance Directives: No Advance Directives Information Provided: No Do you have a plan to hurt others: No Plan Physical Exam ED Vital Signs: Vital Signs - 24 hr 02/13/25 10:59 02/13/25 11:18 02/13/25 11:35 Temperature 98.6 F 98.6 F Pulse Rate 52 52 Respiratory Rate 18 18 Blood Pressure 199/80 H 199/80 H 211/82 H Pulse Oximetry 98 98 Oxygen Delivery Method Room Air Room Air 02/13/25 11:41 02/13/25 12:16 02/13/25 12:16 Temperature Pulse Rate 48 L 50 50 Respiratory Rate 18 Blood Pressure 163/72 H 177/71 H 180/76 H Pulse Oximetry 95 Oxygen Delivery Method Room Air 02/13/25 12:16 02/13/25 13:00 Temperature Pulse Rate 52 44 L Respiratory Rate 20 Blood Pressure 178/69 H 176/73 H Pulse Oximetry Oxygen Delivery Method BMI result Body Mass Index 31.6 Const General: healthy appearing, comfortable, no acute distress, alert and awake Nutritional Appearance: well nourished Orientation/consciousness: patient oriented x3 HENMT Head: Yes normocephalic and Yes atraumatic Eyes Eyelids: Yes eyelids normal Conjunctivae: conjunctivae normal Sclerae: sclerae normal Corneas: corneas normal Pupils: Equal, round and reactive pupils present EOM: EOMs intact bilaterally Neck Neck: Yes full ROM Chest Other: Chest pain is not reproducible with palpation Chest palpation & inspection: no crepitus Resp Effort & Inspection: normal respiratory effort, able to speak in complete sentences and not labored Cardio Rate: regular rate Rhythm: regular rhythm GI Inspection: No distended Palpation (GI): Soft to palpation, not firm, nontender, no guarding and not rigid Skin General skin exam: no rashes or lesions noted and elasticity normal Neuro General: patient oriented x3 Cranial nerves: Yes CN's II-XII intact bilaterally, Yes Equal, round and reactive pupils present and Yes Bilaterally intact EOM present Cognition (Neuro): normal cognition Speech: No Abnormal speech present Gait exam (Neuro): not ataxic Motor exam (neuro): 5/5 motor strength present throughout, Pronator motor function not present, no tremor noted, no asterixis, Motor fasciculations not present and Normal motor muscle tone present throughout Coordination: [id number] test normal and [id number] test normal Extrem Other: Moving all extremities well without any obvious deformities Course Reevaluation(s) Reevaluation #1: Patient has had episodes of bradycardia the lowest of 44 which was still sinus without blocks. I discussed the patient's results with him including the calcifications seen in the frontal lobe of his head CT. He denies any further headache, he is not dizzy. He is able to get up and walk to the bathroom without any further symptoms. The calcification is highly unlikely to be an subarachnoid hemorrhage. The patient's blood pressure has improved, he will follow up with Cardiology for the bradycardia. I gave him return precautions including worsening headache, lightheadedness, visual changes, vomiting. Answered all questions and the patient is stable for discharge Time: 14:21 Medications Administered Discontinued Medications Generic Name Dose Route Start Last Admin Trade Name Jayla PRN Reason Stop Dose Admin Hydralazine HCl 5 mg 02/13/25 11:24 02/13/25 11:35 Hydralazine Hcl 20 Mg/Ml Vial IVPUSH 02/13/25 11:25 5 mg ONCE ONE Administration Protocol Meclizine HCl 50 mg 02/13/25 11:25 02/13/25 11:36 Meclizine Hcl 25 Mg Tablet PO 02/13/25 11:26 50 mg ONCE ONE Administration Medical Decision Making Medical Decision Making [facility] Narrative: 65-year-old male with a history of hypertension presents for evaluation of dizziness and a headache that started this morning. He has an NIH stroke score of 0. Last known well time was about 13 hours ago. He does not have any objective findings on exam, cerebellar test is negative as well which is also reassuring. We will also get a CT scan of the head. He was quite hypertensive to 199/80. He has been bradycardic as low as 48, EKG shows a sinus bradycardia without a block. Plan for cardiac workup, we will check orthostatics. I will treat the patient's blood pressure with hydralazine due to the bradycardia we will avoid beta blockers. Differential Diagnosis Differential Diagnoses: The differential diagnosis associated with the presentation includes Orthostasis Symptomatic bradycardia Acute headache CVA less likely Admission/Observation Consideration of admission/observation: Escalation of care including admission/observation considered Lab Data [facility] Lab Attestation statement: I reviewed the patient's lab results. No leukocytosis or significant anemia. The patient does have a mild normocytic anemia consistent with his baseline. Platelet count within normal limits. Chemistries without concerning abnormalities. Troponin within normal limits in his symptoms started 5 hours ago, he rules out for ACS. He has a mild AST and ALT increase which he has had previously 02/13/25 11:31 02/13/25 11:31 Labs: Lab Results 02/13/25 Range/Units 11:31 WBC 6.6 (4.8-10.8) X10*3/uL RBC 4.21 L (4.60-5.80) X10*6/uL Hgb 13.0 L (14.0-18.0) g/dl Hct 39.9 L (42.0-52.0) % MCV 94.8 (80.0-98.0) fL MCH 30.9 (27.0-33.0) pg MCHC 32.6 (31.0-36.0) g/dl RDW 11.9 (11.0-16.0) % Plt Count 213 (160-400) X10*3/uL MPV 10.0 (9.4-12.4) fL Immature Gran % (Auto) 0.3 (0.0-0.4) % Neut % (Auto) 63.2 (45-73) % Lymph % (Auto) 23.1 (20-40) % [place] % (Auto) 9.4 (2-11) % Eos % (Auto) 3.2 (0-4) % Baso % (Auto) 0.8 (0-2) % Lymph # (Auto) 1.5 (1.2-4.9) X10*3/uL [place] # (Auto) 0.6 (0.1-1.2) X10*3/uL Eos # (Auto) 0.2 (0.0-0.4) X10*3/uL Baso # (Auto) 0.1 (0.0-0.2) X10*3/uL Abs Immat Gran (auto) 0.02 (0.00-0.03) X10*3/uL Absolute Neuts (auto) 4.2 (2.0-8.3) x10*3/uL Absolute Nucleated RBC 0.000 (0.0-0.012) X10*3/uL Nucleated RBC % (auto) 0.0 (0.0-0.2) /100WBC Sodium 137 (135-145) mmol/L Potassium 3.9 (3.3-5.1) mmol/L Chloride 101 (96-108) mmol/L Carbon Dioxide 30 H (22-29) mmol/L Anion Gap 10 L (12-20) BUN 14 (9-16) mg/dL Creatinine 0.70 (0.5-1.4) mg/dL Estim Creat Clear Calc 120.8 Estimated GFR > 60 Random Glucose 98 (60-115) mg/dL Calcium 8.5 (8.4-10.2) mg/dL Magnesium 1.9 (1.6-2.6) mg/dL Total Bilirubin 1.0 (0.0-1.0) mg/dL AST 51 H (5-37) U/L ALT 45 H (0-40) U/L Alkaline Phosphatase 102 (39-117) U/L Troponin I High Sens 7.1 (<3.5-35.0) ng/L Total Protein 7.6 (6.5-8.0) g/dL Albumin 4.0 (3.5-5.0) g/dL Influenza Type A (PCR) NEGATIVE (Negative) Influenza Type B (PCR) NEGATIVE (Negative) RSV RNA Qual (PCR) NEGATIVE (Negative) SARS-CoV-2 RNA (RT-PCR) NEGATIVE (Negative) Independent Interpretation I performed an independent interpretation of an: EKG (Sinus bradycardia rate of [address] segment changes.) Discharge Plan Discharge Clinical Impression: Dizziness, Bradycardia Patient Disposition: Home, Self-Care Instructions: Dizziness (ED) Additional Instructions: Your heart rate has been slower than normal. Based on your medications, this is not related to any of your medications. I recommend that you follow up with the cardiology for the slow heart rate. Return for new or worsening symptoms including worsening chest pain, lightheadedness with dizziness, headache, visual changes. Your brain CT showed a calcification in the frontal lobe which you may follow-up with your primary doctor, as you may benefit from an outpatient MRI. Prescriptions: No Action acetaminophen [Tylenol Extra Strength] 500 mg tablet 500 mg PO Q6H PRN (Reason: fever or pain) Qty: 14 0RF lidocaine [Lidoderm] 5 % adhesive patch,medicated 1 patch topical DAILY MDD remove after 12 hours PRN (Reason: pain) Qty: 30 0RF Rx Instructions: leave on most painful area for up to 12 hrs naproxen 500 mg tablet 500 mg PO BID PRN (Reason: pain) 10 Days Qty: 20 0RF cyclobenzaprine 5 mg tablet 5 mg PO Q8H PRN (Reason: pain (scale score 7-10)) 5 Days Qty: 14 0RF omeprazole 20 mg capsule,delayed release(DR/EC) 20 mg PO DAILY 30 Days Qty: 30 0RF Gaviscon Extra Strength 254-237.5 mg/5 mL suspension 10 ml PO QID PRN (Reason: dyspepsia) Qty: 355 0RF oseltamivir [Tamiflu] 75 mg capsule 75 mg PO Q12H 5 Days Qty: 10 0RF alum-mag hydroxide-simeth [Maalox Advanced] 200-200-20 mg/5 mL suspension 5 ml PO 5XD PRN (Reason: dyspepsia) Qty: 30 0RF Rx Instructions: administer between meals and at bedtime Referrals: [facility] [Provider Group] Referral Note: bradycardia Print Language: Malay
[2025-02-13 11:58] LABS: Alanine Aminotransferase 45 U/L (0-40); Alkaline Phosphatase 102 U/L (39-117); Anion Gap 10 (12-20); Aspartate Amino Transferase 51 U/L (5-37); Blood Urea Nitrogen 14 mg/dL (9-16); Calcium 8.5 mg/dL (8.4-10.2); Carbon Dioxide 30 mmol/L (22-29); Chloride 101 mmol/L (96-108); Creatinine Clr Calc Pharmacy 120.8; Estimated Glomerular Filt Rate > 60; Glucose Random 98 mg/dL (60-115); Magnesium 1.9 mg/dL (1.6-2.6); Potassium 3.9 mmol/L (3.3-5.1); Sodium 137 mmol/L (135-145); Total Protein 7.6 g/dL (6.5-8.0)
[2025-02-13 12:00] LABS: Troponin-I High Sensitivity 7.1 ng/L (<3.5-35.0)
[2025-02-13 12:13] LABS: Influenza A PCR NEGATIVE (Negative); Influenza B PCR NEGATIVE (Negative); Resp Syncy Virus RNA Qual PCR NEGATIVE (Negative); SARS COV2 PCR INHOUSE NEGATIVE (Negative)
--- OUTSIDE RECORDS SUMMARY | 2025-02-13 14:26 | XMS_ITS | Clinical Summary ---
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:Chronic midline low back pain with right-sided sciatica Social History Tobacco Use Types Packs/Day Years Used Date Smoking Tobacco: Never Assessed Sex and Gender Information Value Date Recorded Sex Assigned at Not on file Legal Sex Male 4:47 PM EST Gender Identity Not on file Sexual Orientation Not on file Obstetrics History Plan of Treatment Health Maintenance Due Date Last Done Comments DTaP,Tdap,and Td Vaccines (1 - Tdap) 01/14/1979 Hepatitis A Vaccines (1 of 2 - Risk 2-dose series) 01/14/1979 Pneumococcal Vaccine: 50+ Years (2 of 2 - PCV) 01/20/2018 01/20/2017 Hepatitis B Vaccines (1 of 3 - Risk 3-dose series) 2020 RSV Immunization Adult Patients (1 - Risk 60-74 years 1-dose series) 2020 Zoster Vaccines (2 of 2) 08/11/2020 06/16/2020 Abdominal Aortic Aneurysm (AAA) Screen 07/20/2022 Colorectal Cancer Screening: Colonoscopy 07/20/2022 Hepatitis C Screening 07/20/2022 Social Influencers of Health Screening 07/20/2022 COVID-19 Vaccine (1 - 2023-2 5 season) 2024 Hypertension/CHF/CAD Annual BMP Blood Test 04/26/2024 04/26/2023 Depression Screening 08/31/2024 08/31/2023 Falls Risk Assessment 01/14/2025 Influenza Vaccine (Season Ended) 2025 10/22/2019, 05/27/2017 Cholesterol Screening (Lipid Panel) 04/26/2028 04/26/2023, 04/26/2023, 09/09/2021 Pneumococcal Vaccine: Pediatrics (0 to 5 Years) and At-Risk Patients (6 to 64 Years) Aged Out 01/20/2017 No longer eligible b ased on patient's age to complete this topic HIB Vaccines Aged Out No longer eligi ble based on patient's age to complete this topic HPV Vaccines Aged Out No longer eligi ble based on patient's age to complete this topic IPV Vaccines Aged Out No longer eligi ble based on patient's age to complete this topic MMR Vaccines Aged Out No longer eligi ble based on patient's age to complete this topic Meningococcal ACWY Vaccine Aged Out N o longer eligible based on patient's age to complete this topic Meningococcal B Vaccine Aged Out No l onger eligible based on patient's age to complete this topic RSV Immunization Patients Under 20 months Aged Out No longer eligible b ased on patient's age to complete this topic Varicella Vaccines Aged Out No longer eligible based on patient's age to complete this topic Care Teams Cash Applications Specialist Relationship Specialty Start Date End Date Chichi Rodarte FNP [facility] [place] [id number] PCP - General 04/28/23
== END 2025-02-13 14:42 | disposition home or self-care (01) ==
PROVIDERS: Physician Assistant; Emergency Provider Emergency Medicine; PCP Dentist General Practice
DX: R42 Dizziness and giddiness (principal); R07.89 Other chest pain; R51.9 Headache, unspecified; R00.1 Bradycardia, unspecified; R11.2 Nausea with vomiting, unspecified; I10 Essential (primary) hypertension; Z03.818 Encounter for observation for suspected exposure to other biological agents ruled out; Z79.899 Other long term (current) drug therapy
CPT/HCPCS: 0241U; 70450; 80053; 83735; 84484; 85025; 93005; 96374; 99284; 99285; J0360

== ENCOUNTER → 2025-02-13 11:01 | Outpatient (BNV) | payer OTHER, SELFPAY | PROVIDERS: Emergency Provider Emergency Medicine; PCP Dentist General Practice; Visit Provider Internal Medicine | DX: R00.1 Bradycardia, unspecified (principal) | CPT/HCPCS: 93010 ==

== ENCOUNTER → 2025-02-13 11:24 | Outpatient (BNV) | payer OTHER, SELFPAY | PROVIDERS: Emergency Provider Emergency Medicine; PCP Dentist General Practice; Visit Provider Radiology Diagnostic Radiology | DX: R51.9 Headache, unspecified (principal) | CPT/HCPCS: 70450 ==

== ENCOUNTER 2025-03-08 07:14 | Inpatient (IN) | payer OTHER, SELFPAY ==
[2025-03-08] VITALS (12 sets, daily range): BP systolic 135–218; BP diastolic 65–86; PULSE 48–66; RESP 14–20; TEMP 36.1–37.1; O2SAT 91–96; BMI 29.0; BMI 34.8
--- NOTE | 2025-03-08 | ECG_ITS ---
Test Reason : Chest pressure Blood Pressure : */* mmHG Vent. Rate : 56 BPM Atrial Rate : 56 BPM P-R Int : 134 ms QRS Dur : 96 ms QT Int : 458 ms P-R-T Axes : 5 -21 45 degrees QTcB Int : 441 ms Sinus bradycardia Minimal voltage criteria for LVH, may be normal variant ( Gurinder product ) Borderline ECG When compared with ECG of 13-Feb-2025 11:03, No significant change was found Referred By: Krissy Atkinson Electronically Signed By: REJI KRUSE
--- NOTE | ~2025-03-08 | CT_ITS ---
CLINICAL HISTORY: Evaluate severity of right renal artery stenosis --- Additional Notes or Special Instructions: From renal U S: Abnormal elevated peak systolic velocities Exam: CT angiography of the abdomen with IV contrast, 3D post-processing Comparison: US/SR - US RENAL DOPPLER - 03/08/25 14:[address]/SR - CT ABDOMEN PELVIS W IV CON - 03/08/25 09:[address]/SR - CT ABDOMEN PELVIS WITH IV CONTRAST - 02/07/25 13:[address] - CT ABDOMEN PELVIS WITH IV CONTRAST - 08/22/23 08:19 EST Findings: Abdominal aorta demonstrates mild atherosclerotic calcification, patent and normal in caliber, no dissection. Bilateral renal arteries are patent, normal in caliber, no apparent atherosclerotic disease. Mild ostial stenosis of the celiac trunk due to calcification, no aneurysmal dilatation. SMA and PATRICIA are patent and normal in caliber. New small peripheral wedge-shaped consolidation of the lingula posterolaterally, left greater than right basilar dependent atelectasis, unchanged. Stable probable minimal right pleural effusion. Liver, gallbladder, spleen, pancreas, adrenal glands, left kidney and included proximal ureters are unremarkable. Stable intrahepatic and extrahepatic bile duct dilatation, common bile duct up to 1.1 cm diameter, no radiopaque choledocholithiasis, pancreatic duct is dilated at the head up to 6 mm, unchanged. Right renal cysts and parenchymal scar. Unremarkable included GI tract. No ascites or pneumoperitoneum. No bulky lymph nodes. Degenerative spondylosis of included thoracolumbar spine. Impression: 1. Patent renal arteries without stenosis. 2. New wedge-shaped small consolidation of the lingula, may reflect atelectasis or infiltrates. 3. Stable intrahepatic and extrahepatic bile duct dilatation, pancreatic duct dilatation at the head, uncertain etiology, recommend yarn skeins examiner follow-up if not done already. 4. Stable bibasilar dependent atelectasis and probable minimal right pleural effusion. 5. Additional stable chronic findings. This document has been electronically signed by: Lien Hawkins MD on 03/09/2025 13:11:32
--- NOTE | ~2025-03-08 | US_ITS ---
CLINICAL HISTORY: Uncontrolled HTN, R O renal artery stenosis Renal duplex ultrasound Comparison: CT/SR - CT ABDOMEN PELVIS W IV CON - 03/08/25 09:21 EDT Technique: Real time duplex ultrasound imaging was performed by the pharmaceutical sales specialist. Multiple pest control service representative static images were saved for review. Findings: Aorta: Mid abdominal aorta is visualized due to limited acoustic window. RAR can not be calculated. Right kidney: Normal size and echotexture, 10.1 cm length. No calculus. Minimally complex avascular cyst 1.4 x 2.2 x 1.8 cm with thin septation in the upper interpolar region. Simple intrarenal cyst 1.5 cm in the midpole. No hydronephrosis. Main renal artery peak systolic velocities: Proximal: 237 cm/s Mid: 215 cm/s Distal: 155 cm/s Segmental resistive index: 0.77-0.79, top-normal Left kidney: Not well seen due to limited acoustic window, grossly normal in size and echogenicity, 11.0 cm in length. No calculus or hydronephrosis. 1.2 cm hypoechoic avascular lesion in the interpolar region, mildly increased through transmission, probably cyst, not well seen. Main renal artery peak systolic velocities: Proximal: 168 cm/s Mid: 109 cm/s Distal: 95 cm/s Segmental resistive index: 0.70-0.79, top-normal Impression: 1. Abnormal elevated peak systolic velocities of right renal artery, concerning for stenosis, the severity of the stenosis is difficult to estimate as RAR could not be calculated, mid abdominal aorta is not seen. CT angiography can better evaluate. 2. Left renal artery peak systolic velocity is within normal range. 3. Bilateral renal cysts, the left renal cyst is not well visualized. This document has been electronically signed by: Lien Hawkins MD on 03/08/2025 16:13:30
--- NOTE | ~2025-03-08 | CT_ITS ---
CLINICAL HISTORY: abd pain CT abdomen and pelvis with contrast Comparison: CT/SR - CT ABDOMEN PELVIS WITH IV CONTRAST - 02/07/25 13:55 EDT Findings: CT abdomen: Scattered areas of likely atelectasis are seen within the lung bases. No pleural effusion. Multilevel degenerative disc disease and degenerative facet disease is again seen throughout the lumbar spine without acute fracture. Solid abdominal organs are unchanged in appearance. Mild dilation of the intrahepatic and extrahepatic biliary tree as before. Small bilateral renal cysts. No dilated small bowel. No free fluid or free air. CT pelvis: Moderate stool within the distal colon. No focal colonic wall thickening. No dilated colon is seen. No dilated small bowel. No findings of appendicitis. No free fluid or free air. IMPRESSION: No acute findings. This document has been electronically signed by: Yannick Edwards MD on 03/08/2025 10:03:13
--- NOTE | ~2025-03-08 | US_ITS ---
CLINICAL HISTORY: Uncontrolled HTN, R O renal artery stenosis Renal duplex ultrasound Comparison: CT/SR - CT ABDOMEN PELVIS W IV CON - 03/08/25 09:21 EDT Technique: Real time duplex ultrasound imaging was performed by the ophthalmic medical technician. Multiple leasing representative static images were saved for review. Findings: Aorta: Mid abdominal aorta is visualized due to limited acoustic window. RAR can not be calculated. Right kidney: Normal size and echotexture, 10.1 cm length. No calculus. Minimally complex avascular cyst 1.4 x 2.2 x 1.8 cm with thin septation in the upper interpolar region. Simple intrarenal cyst 1.5 cm in the midpole. No hydronephrosis. Main renal artery peak systolic velocities: Proximal: 237 cm/s Mid: 215 cm/s Distal: 155 cm/s Segmental resistive index: 0.77-0.79, top-normal Left kidney: Not well seen due to limited acoustic window, grossly normal in size and echogenicity, 11.0 cm in length. No calculus or hydronephrosis. 1.2 cm hypoechoic avascular lesion in the interpolar region, mildly increased through transmission, probably cyst, not well seen. Main renal artery peak systolic velocities: Proximal: 168 cm/s Mid: 109 cm/s Distal: 95 cm/s Segmental resistive index: 0.70-0.79, top-normal Impression: 1. Abnormal elevated peak systolic velocities of right renal artery, concerning for stenosis, the severity of the stenosis is difficult to estimate as RAR could not be calculated, mid abdominal aorta is not seen. CT angiography can better evaluate. 2. Left renal artery peak systolic velocity is within normal range. 3. Bilateral renal cysts, the left renal cyst is not well visualized. This document has been electronically signed by: Lien Hawkins MD on 03/08/2025 16:13:30
--- NOTE | ~2025-03-08 | CT_ITS ---
CLINICAL HISTORY: headache, HTN CT head without contrast Comparison: CT/SR - CT HEAD WITHOUT IV CONTRAST - 02/13/25 12:23 EDT Findings: No intra-axial mass, midline shift, hydrocephalus, or acute hemorrhage. No significant atrophy-like change or white matter disease. There is some bubbly debris in the right sphenoid sinus with chronic thickening of the bony wall of the sinus. Mild mucosal thickening in the left frontoethmoidal recess in the bilateral ethmoid air cells. Paranasal sinuses otherwise clear. Mastoid air cells are clear. The orbits are within normal limits. No skull fracture. IMPRESSION: 1. No acute intracranial findings. 2. Chronic right sphenoid sinusitis. This document has been electronically signed by: Erick Carranza MD on 03/08/2025 11:41:43
--- NOTE | 2025-03-08 08:11 | ED_ITS ---
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 (all interactions with this patient were facilitated with an [facility] records and information manager) Mode of arrival: ambulatory Limitations: language barrier (all interactions with this patient were facilitated with an [facility] records and information manager) History of Present Illness ED Provider: Anushka Kasper PA-C HPI narrative: Patient is a 65 year old assigned male at with a history of HTN on lisinopril and hydrochlorothiazide presenting to the emergency department today with abdominal pain, head, nausea, and vomiting. Patient states that he has been having abdominal pain, nausea, and vomiting since last night. Patient states that he was seen here for something similar weeks ago but he was never given anything for pain and it got better until last night. Patient denies any dizziness, lightheadedness, fever, chills, blurry vision, double vision, loss of vision, chest pain, difficulty breathing, shortness of breath, back pain, night sweats, pain with urination, increased urinary frequency, increased urinary urgency, blood in his urine or stool, syncope or a near syncopal episode, recent trauma or falls, bowel incontinence, bladder incontinence, or any other complaints at this time. Relieving factors: none Exacerbating factors: none Associated symptoms: nausea/vomiting Treatments prior to arrival: none Related Data Home Medications ?Medication ?Instructions ?Recorded ?Confirmed hydrochlorothiazide 25 mg tablet 25 mg PO DAILY 03/08/25 lisinopril 40 mg tablet 40 mg PO DAILY 03/08/2502/18 Allergies Allergy/AdvReac Type Severity Reaction Status Date / Time No Known Allergies Allergy Mild NONE Verified 03/08/25 07:23 Review of Systems 2 Constitutional: Constitutional: Reports no additional constitutional complaints, Denies chills, Denies fever(s), Reports headache(s) and Denies night sweats Eyes: Eyes: Reports no additional eye complaints, Denies blurry vision, Denies change in vision, Denies diplopia, Denies eye discharge, Denies loss of vision and Denies eye pain ENT: Denies dizziness and Reports headache(s) Cardiovascular: Cardiovascular: Reports no additional cardiovascular complaints, Denies chest pain, Denies lightheadedness, Denies Loss of Consciousness and Denies dyspnea Respiratory: Respiratory: Reports no additional respiratory complaints and Denies dyspnea Gastrointestinal: Gastrointestinal: Reports no additional gastrointestinal complaints, Reports abdominal pain, Denies melena, Denies hematochezia, Denies change in bowel habits, Denies change in stool character, Reports nausea and Reports vomiting Genitourinary: Genitourinary: Reports no additional male genitourinary complaints, Denies hematuria, Denies oliguria, Denies difficulty urinating, Denies dysuria, Denies urinary frequency, Denies urinary hesitancy, Denies urinary incontinence and Denies urinary urgency Musculoskeletal: Musculoskeletal: Reports no additional musculoskeletal complaints, Denies numbness and Denies tingling Neurologic: Denies dizziness, Reports headache(s), Denies loss of vision, Denies numbness and Denies tingling Psychiatric: Psychiatric: Reports no additional psychiatric complaints Endocrine: Endocrine: Reports no additional endocrine complaints Hematologic/Lymphatic: Hematologic/Lymphatic: Reports no additional hematologic/lymphatic complaints Allergic/Immunologic: Allergic/Immunologic: Reports no additional allergic/immunologic complaints PMFSH Past Medical History Attestation statement: The following information was validated with the patient. Source: old records reviewed and nursing notes reviewed Social History Social History Alcohol intake: never Advance Directives: No Advance Directives Information Provided: No Physical Exam ED Vital Signs: Vital Signs - 24 hr 03/08/25 07:19 03/08/25 07:27 03/08/25 08:52 Temperature 98.0 F 98.3 F 98.7 F Pulse Rate 50 48 L 49 L Respiratory Rate 16 16 18 Blood Pressure 197/67 H 198/77 H 207/81 H Pulse Oximetry 95 94 91 L Oxygen Delivery Method Room Air Room Air Room Air 03/08/25 10:17 03/08/25 10:55 03/08/25 12:10 Temperature 98.1 F 98.8 F Pulse Rate 53 54 Respiratory Rate 16 14 Blood Pressure 211/79 H 216/80 H 211/82 H Pulse Oximetry 94 92 Oxygen Delivery Method Room Air Room Air 03/08/25 13:14 Temperature Pulse Rate Respiratory Rate Blood Pressure 192/82 H Pulse Oximetry Oxygen Delivery Method BMI result Body Mass Index 29.0 Const General: cooperative, no acute distress, alert and awake Nutritional Appearance: well nourished Orientation/consciousness: patient oriented x3 HENMT Head: Yes normal to inspection and Yes atraumatic Ears: hearing grossly normal bilaterally and external ears normal General nose exam: Normal external nose present, no nasal discharge noted and no epistaxis Face and sinus: Yes normal facial exam, No abrasion and No laceration Mouth: Normal oral and palatal mucosa present, no drooling and no muffled voice Eyes General: appearance normal, both eyes and all related structures Periorbital: periorbital findings normal Eyelids: Yes eyelids normal Conjunctivae: conjunctivae normal Pupils: Equal, round and reactive pupils present EOM: EOMs intact bilaterally Neck Neck: Yes normal visual inspection, Yes full ROM and Yes no lymphadenopathy Resp Effort & Inspection: normal respiratory effort and able to speak in complete sentences Neuro General: patient oriented x3, moves all extremities and CN's II-XI intact bilaterally Cranial nerves: Yes Equal, round and reactive pupils present Cognition (Neuro): normal cognition Extrem General: Yes normal to inspection, Yes full ROM and Yes capillary refill normal Psych Appearance: grossly normal Mental Status: mental status grossly normal Affect: normal affect Attitude: cooperative Thought process: Normal thought process present Thought content: Normal thought content present Insight: Good insight present (Psych) Medications Administered Discontinued Medications Generic Name Dose Route Start Last Admin Trade Name Freq PRN Reason Stop Dose Admin Amlodipine Besylate 10 mg 03/08/25 10:57 03/08/25 11:01 Amlodipine Besylate 10 Mg Tablet PO 03/08/25 10:58 10 mg ONCE ONE Administration Protocol Carvedilol 6.25 mg 03/08/25 12:25 03/08/25 12:35 Carvedilol 6.25 Mg Tablet PO 03/08/25 12:26 6.25 mg ONCE ONE Administration Protocol Dicyclomine HCl 10 mg 03/08/25 08:30 03/08/25 08:45 Dicyclomine Hcl 10 Mg Capsule PO 03/08/25 08:31 10 mg ONCE ONE Administration Hydralazine HCl 5 mg 03/08/25 10:13 03/08/25 10:17 Hydralazine Hcl 20 Mg/Ml Vial IVPUSH 03/08/25 10:14 5 mg ONCE ONE Administration Protocol Hydralazine HCl 50 mg 03/08/25 12:25 03/08/25 12:35 Hydralazine Hcl 50 Mg Tablet PO 03/08/25 12:26 50 mg ONCE ONE Administration Protocol Iohexol 100 ml 03/08/25 09:40 03/08/25 09:40 Iohexol 350 Mg/Ml 100 Ml Infus..Btl IV 03/08/25 09:41 85 ml ONCE ONE Administration Lisinopril 10 mg 03/08/25 12:25 03/08/25 12:35 Lisinopril 10 Mg Tablet PO 03/08/25 12:26 10 mg ONCE ONE Administration Protocol Morphine Sulfate 4 mg 03/08/25 08:30 03/08/25 08:45 Morphine Sulfate 4 Mg/Ml Cartridge IVPUSH 03/08/25 08:31 4 mg ONCE ONE Administration Protocol Ondansetron HCl 4 mg 03/08/25 08:30 03/08/25 08:45 Ondansetron Hcl 4 Mg/2 Ml Vial IVPUSH 03/08/25 08:31 4 mg ONCE ONE Administration Pantoprazole Sodium 40 mg 03/08/25 08:30 03/08/25 08:45 Pantoprazole Sodium 40 Mg/10 Ml Vial IVPUSH 03/08/25 08:31 40 mg ONCE ONE Administration Medical Decision Making Medical Decision Making [facility] Narrative: Patient is a 65 year old assigned male at with a history of HTN on lisinopril and hydrochlorothiazide presenting to the emergency department today with abdominal pain, head, nausea, and vomiting. Patient's physical exam showed significant hypertension in the presence of bradycardia. Patient's blood work was unremarkable. Patient's head CT showed no acute process. Patient's abdomen/pelvis CT showed stool but otherwise unremarkable. Patient confirmed that he took his blood pressure medication this morning before coming to the department. Patient's blood pressure was 207/81. I gave the patient 5mg of IV Hydralazine which was inaffective in reducing the patient's blood pressure. Patient was given IV Morphine which appropriately addressed his abdominal pain but did not lower the patient's blood pressure. I consulted with Dr. Natarajan, the heat treater helper director of consumer marketing, who recommended 10mg of Amlodipine. Patient was given 10mg of Amlodipine however, his blood pressure did not improve. Dr. Natarajan then recommended 50mg of Hydralazine, 10mg of Lisinopril, and 6.25 of coreg. Patient's blood pressure decreased to 192/82. I spoke to the hospitalist team who agreed to admission. I explained my physical exam findings as well as all test results to the patient. I answered all questions asked by the patient. Patient verbalized agreement and understanding with this treatment plan and admission to the hospital for continued blood pressure management. Differential Diagnosis Differential Diagnoses: The differential diagnosis associated with the presentation includes Hypertension Hypertensive urgency Hypertensive emergency Constipation Abdominal pain Admission/Observation Consideration of admission/observation: Escalation of care including admission/observation considered Patient would have been admitted to the hospital had his work up had any findings where hospital admission was appropriate and his clinical presentation warranted hospital admission. Consult Healthcare Provider Management of the patient was discussed with: Hospitalist (agreed to admission as noted in the MDM Rationale portion of this note. ) and Brake Drum Lathe Operator (I spoke with the director of consumer marketing heat treater helper as noted in the MDM Rationale portion of this note. ) Lab Data [facility] Lab Attestation statement: I reviewed the patient's lab results. My interpretation of these results are in the MDM Rationale portion of this note. 03/08/25 08:10 03/08/25 08:10 Labs: Lab Results 03/08/25 03/08/25 03/08/25 Range/Units 08:09 08:10 10:54 WBC 8.3 (4.8-10.8) X10*3/uL RBC 4.18 L (4.60-5.80) X10*6/uL Hgb 12.8 L (14.0-18.0) g/dl Hct 39.2 L (42.0-52.0) % MCV 93.8 (80.0-98.0) fL MCH 30.6 (27.0-33.0) pg MCHC 32.7 (31.0-36.0) g/dl RDW 11.8 (11.0-16.0) % Plt Count 233 (160-400) X10*3/uL MPV 9.9 (9.4-12.4) fL Immature Gran % (Auto) 0.4 (0.0-0.4) % Neut % (Auto) 73.5 H (45-73) % Lymph % (Auto) 14.5 L (20-40) % [place] % (Auto) 9.4 (2-11) % Eos % (Auto) 1.7 (0-4) % Baso % (Auto) 0.5 (0-2) % Lymph # (Auto) 1.2 (1.2-4.9) X10*3/uL [place] # (Auto) 0.8 (0.1-1.2) X10*3/uL Eos # (Auto) 0.1 (0.0-0.4) X10*3/uL Baso # (Auto) 0.0 (0.0-0.2) X10*3/uL Abs Immat Gran (auto) 0.03 (0.00-0.03) X10*3/uL Absolute Neuts (auto) 6.1 (2.0-8.3) x10*3/uL Absolute Nucleated RBC 0.000 (0.0-0.012) X10*3/uL Nucleated RBC % (auto) 0.0 (0.0-0.2) /100WBC Sodium 138 (135-145) mmol/L Potassium 4.4 (3.3-5.1) mmol/L Chloride 99 (96-108) mmol/L Carbon Dioxide 32 H (22-29) mmol/L Anion Gap 11 L (12-20) BUN 12 (9-16) mg/dL Creatinine 0.73 (0.5-1.4) mg/dL Estim Creat Clear Calc 101.2 Estimated GFR > 60 Random Glucose 122 H (60-115) mg/dL Calcium 8.8 (8.4-10.2) mg/dL Total Bilirubin 1.1 H (0.0-1.0) mg/dL AST 51 H (5-37) U/L ALT 42 H (0-40) U/L Alkaline Phosphatase 116 (39-117) U/L Total Protein 7.8 (6.5-8.0) g/dL Albumin 3.9 (3.5-5.0) g/dL Urine Color Yellow Urine Appearance Clear Urine pH 6.0 (5.0-9.0) Ur Specific [place] >= 1.030 H (1.005-1.025) Urine Protein Trace (Neg-Trace) mg/dL Urine Glucose (UA) Negative (Negative) mg/dL Urine Ketones Negative (Negative) mg/dL Urine Blood Negative (Negative) Urine Nitrite Negative (Negative) Ur Leukocyte Esterase Negative (Negative) Influenza Type A (PCR) NEGATIVE (Negative) Influenza Type B (PCR) NEGATIVE (Negative) RSV RNA Qual (PCR) NEGATIVE (Negative) SARS-CoV-2 RNA (RT-PCR) NEGATIVE (Negative) Independent Interpretation I performed an independent interpretation of an: Plain X-Ray and CT Scan Interpretation: My interpretation is in agreement with the radiologist's impression of these imaging studies. L Report Number: [id number]: Total DLP = 783.00 mGy-cm CLINICAL HISTORY: headache, HTN CT head without contrast Comparison: CT/SR - CT HEAD WITHOUT IV CONTRAST - 02/13/25 12:23 EDT Findings: No intra-axial mass, midline shift, hydrocephalus, or acute hemorrhage. No significant atrophy-like change or white matter disease. There is some bubbly debris in the right sphenoid sinus with chronic thickening of the bony wall of the sinus. Mild mucosal thickening in the left frontoethmoidal recess in the bilateral ethmoid air cells. Paranasal sinuses otherwise clear. Mastoid air cells are clear. The orbits are within normal limits. No skull fracture. IMPRESSION: 1. No acute intracranial findings. 2. Chronic right sphenoid sinusitis. This document has been electronically signed by: Erick Carranza MD on 03/08/2025 11:41:43 Dictated By: Erick Carranza MD Signed By: Electronically signed by Ercik Carranza MD 03/08/25 1142 Report Number: [id number]: Total DLP = 1673.00 mGy-cm CLINICAL HISTORY: abd pain CT abdomen and pelvis with contrast Comparison: CT/SR - CT ABDOMEN PELVIS WITH IV CONTRAST - 02/07/25 13:55 EDT Findings: CT abdomen: Scattered areas of likely atelectasis are seen within the lung bases. No pleural effusion. Multilevel degenerative disc disease and degenerative facet disease is again seen throughout the lumbar spine without acute fracture. Solid abdominal organs are unchanged in appearance. Mild dilation of the intrahepatic and extrahepatic biliary tree as before. Small bilateral renal cysts. No dilated small bowel. No free fluid or free air. CT pelvis: Moderate stool within the distal colon. No focal colonic wall thickening. No dilated colon is seen. No dilated small bowel. No findings of appendicitis. No free fluid or free air. IMPRESSION: No acute findings. This document has been electronically signed by: Yannick Edwards MD on 03/08/2025 10:03:13 Dictated By: Yannick Edwards MD Signed By: Electronically signed by Yannick Edwards MD 03/08/25 1004 Radiology Impression Discussion of test interpretation with radiology: I have reviewed the radiologist's reading. Chronic Conditions Patient?s care impacted by: Hypertension Critical Care Time Critical Care Time Critical Care Time: Yes Total Critical Care Time: 57 Attestation: I spent 57 minutes of Critical Care Time with this patient. This does not include time spent on separately reported billable procedures. Discharge Plan Discharge Clinical Impression: Hypertension, Headache, Constipation Patient Disposition: Admitted As Inpatient
[2025-03-08 08:15] LABS: MANUAL DIFF FLAG NO
[2025-03-08 08:19] LABS: Hematocrit 39.2 % (42.0-52.0); Hemoglobin 12.8 g/dl (14.0-18.0); Imm Gran Abs Auto 0.03 X10*3/uL (0.00-0.03); Imm Gran Pct Auto 0.4 % (0.0-0.4); Lymphocytes Absolute Auto 1.2 X10*3/uL (1.2-4.9); Mean Corpuscular HGB Conc 32.7 g/dl (31.0-36.0); Mean Corpuscular Hemoglobin 30.6 pg (27.0-33.0); Mean Corpuscular Volume 93.8 fL (80.0-98.0); NRBC Abs Auto 0.000 X10*3/uL (0.0-0.012); NRBC Pct Auto 0.0 /100WBC (0.0-0.2); Platelet Count 233 X10*3/uL (160-400); Red Blood Count 4.18 X10*6/uL (4.60-5.80); White Blood Count 8.3 X10*3/uL (4.8-10.8)
[2025-03-08 08:36] LABS: Alanine Aminotransferase 42 U/L (0-40); Albumin Level 3.9 g/dL (3.5-5.0); Alkaline Phosphatase 116 U/L (39-117); Anion Gap 11 (12-20); Aspartate Amino Transferase 51 U/L (5-37); Blood Urea Nitrogen 12 mg/dL (9-16); Calcium 8.8 mg/dL (8.4-10.2); Carbon Dioxide 32 mmol/L (22-29); Chloride 99 mmol/L (96-108); Creatinine Clr Calc Pharmacy 101.2; Estimated Glomerular Filt Rate > 60; Potassium 4.4 mmol/L (3.3-5.1); Sodium 138 mmol/L (135-145); Total Protein 7.8 g/dL (6.5-8.0)
[2025-03-08 09:30] LABS: Resp Syncy Virus RNA Qual PCR NEGATIVE (Negative); SARS COV2 PCR INHOUSE NEGATIVE (Negative)
[2025-03-08] MEDS: iohexoL 350 MG/ML 100 ML INFUS..BTL IV (09:40)
[2025-03-08 11:02] LABS: Appearance Urine Clear; Glucose Urine UA Negative (Negative); PH 6.0 (5.0-9.0); Specific Gravity - Urine >= 1.030 (1.005-1.025)
--- NOTE | 2025-03-08 14:13 | PHA.MEDREC ---
Addendum entered by Diane Scott RPh 03/08/25 14:42: [facility] reviewed Original Note: Pharmacy Consult ? Medication Reconciliation Pharmacy has completed the medication reconciliation. Spoke with patient to confirm. He has been out of baby aspirin x3 months, left off of med rec. He took both of his medications today.
--- NOTE | 2025-03-08 14:43 | PM.IMHP ---
History of Present Illness Date of Service: 03/08/25 Attending physician on admission: Macario Mukherjee Chief Complaint: Abd pain Pt is a 65-year-old [place]awian-speaking male with a PMH significant for?HTN, current smoker who presents to the ED with?multiple complaints, including abdominal pain, nausea, vomiting, diarrhea, headache, at chest pressure. Pt reports abdominal pain began last night primarily left-sided. Multiple episodes of nausea and vomiting with 1 episode of loose stool this morning. Has been able to tolerate some p.o. intake while in the ED. pt also complains of ongoing headache for the past few days. Has experienced constant chest pressure for the past 2 days that is central and nonradiating. Was lightheaded and dizzy yesterday, and reports fell into the wall and struck his head when he attempted to stand up yesterday afternoon. Denies any acute vision changes. No SOB or difficulty breathing. Pt states has a long hx of high blood pressure and currently is compliant with hydrochlorothiazide and lisinopril. Reports saw his PCP 7-8 months ago, but prior to that it has been 5-10 years between visits. Pt has a BP machine at home but does not use it. It is unclear if pt was previously on antihypertensives prior to December of this year or how compliant he was with them. In the ED pt was noted to be in hypertensive crisis with elevated BP as high as 216/80. Was given multiple IV antihypertensives with minimal effect. ED provider contacted Cardiology who suggested admission to the hospital for cardiac monitoring and continued BP control. In the ED pt was initially bradycardic at 48 and hypertensive as high as 216/80. Labs were overall grossly unremarkable and around baseline for pt. UA negative. CT of head and abd/pelvis both negative for acute findings. Pt was treated in the ED with morphine, ondansetron, Protonix, dicyclomine, hydralazine 5 mg IV and 50 mg p.o., amlodipine 10 mg p.o., lisinopril 10 mg p.o., and carvedilol 6.25 mg p.o. Pt is admitted to the hospital for treatment and further evaluation of hypertensive crisis. Review of Systems Review of Systems: Negative except for that which is stated in the HPI. [facility] Medical History (Updated 03/08/25 @ 15:12 by BROCK Nelson) Nicotine dependence Social History Alcohol intake: never Advance Directives: No Advance Directives Information Provided: No Meds Allergies Allergy/AdvReac Type Severity Reaction Status Date / Time No Known Allergies Allergy Mild NONE Verified 03/08/25 07:23 Active Medications: Current Medications Acetaminophen (Acetaminophen 325 Mg Tablet) 650 mg PO Q6H PRN PRN Reason: Pain, Mild 1-3,fever,headache Calcium Carbonate (Calcium Carbonate 750 Mg Tab.Chew) 750 mg PO Q4H PRN PRN Reason: Heartburn Enoxaparin Sodium (Enoxaparin Sodium 40 Mg/0.4 Ml Syringe) 40 mg SUBCUT Q24H PACO Hydrochlorothiazide (Hydrochlorothiazide 25 Mg Tablet) 25 mg PO DAILY PACO; Protocol Lisinopril (Lisinopril 40 Mg Tablet) 40 mg PO DAILY PACO; Protocol Magnesium Hydroxide (Milk Of Magnesia 30 Ml Oral.Susp) 30 ml PO DAILY PRN PRN Reason: Constipation Melatonin (Melatonin 3 Mg Tablet) 6 mg PO BEDTIME PRN PRN Reason: Insomnia Nicotine (Nicotine 14 Mg Patch.Td24) 14 mg TRANSDERMA DAILY PACO Ondansetron HCl (Ondansetron Hcl 4 Mg/2 Ml Vial) 4 mg IVPUSH Q8H PRN PRN Reason: Nausea and Vomiting Sodium Chloride (0.9 % Sodium Chloride Flush 3 Ml Syringe) 3 ml IVFLUSH QSHIFT [facility] Home Medications ?Medication ?Instructions ?Recorded ?Confirmed ?Last Taken ?Type hydrochlorothiazide 25 mg tablet 25 mg PO DAILY 03/08/25 03/08/25 03/08/25 History lisinopril 40 mg tablet 40 mg PO DAILY 03/08/25 03/08/25 03/08/25 History Physical Exam Vital Signs and Narrative: Vital Signs: Last Vital Signs Temp 98.8 F 03/08/25 12:10 Pulse 66 03/08/25 14:02 Resp 18 03/08/25 14:02 BP 150/66 H 03/08/25 14:02 Pulse Ox 92 03/08/25 14:02 O2 Del Method Room Air 03/08/25 14:02 BMI result Body Mass Index 29.0 General: AOx3, no acute distress Resp: Mild diffuse wheezing CVS: S1, S2, RRR, +murmur GI: +BS, no distention, mild left-sided tenderness Skin: Warm, dry Neuro: Cranial nerves II-XII grossly intact bilaterally. Motor grossly intact bilaterally Extremities: No edema Psych: Appropriate affect Results Labs 03/08/25 08:10 03/08/25 08:10 Labs: Laboratory Results - last 24 hr 03/08/25 03/08/25 03/08/25 08:09 08:10 10:54 MCV 93.8 MCH 30.6 MCHC 32.7 RDW 11.8 Plt Count 233 MPV 9.9 Immature Gran % (Auto) 0.4 Neut % (Auto) 73.5 H Lymph % (Auto) 14.5 L [place] % (Auto) 9.4 Eos % (Auto) 1.7 Baso % (Auto) 0.5 Lymph # (Auto) 1.2 [place] # (Auto) 0.8 Eos # (Auto) 0.1 Baso # (Auto) 0.0 Abs Immat Gran (auto) 0.03 Absolute Neuts (auto) 6.1 Absolute Nucleated RBC 0.000 Nucleated RBC % (auto) 0.0 Anion Gap 11 L Estim Creat Clear Calc 101.2 Estimated GFR > 60 Random Glucose 122 H Calcium 8.8 Total Bilirubin 1.1 H AST 51 H ALT 42 H Alkaline Phosphatase 116 Total Protein 7.8 Albumin 3.9 Urine Color Yellow Urine Appearance Clear Urine pH 6.0 Ur Specific [place] >= 1.030 H Urine Protein Trace Urine Glucose (UA) Negative Urine Ketones Negative Urine Blood Negative Urine Nitrite Negative Ur Leukocyte Esterase Negative Influenza Type A (PCR) NEGATIVE Influenza Type B (PCR) NEGATIVE RSV RNA Qual (PCR) NEGATIVE SARS-CoV-2 RNA (RT-PCR) NEGATIVE Assessment and Plan (1) Hypertensive urgency: Status: Acute Plan Pt is a 65-year-old [place]ian-speaking male with a PMH significant for?HTN, current smoker who presents to the ED with?multiple complaints, including abdominal pain, nausea, vomiting, diarrhea, headache, at chest pressure. Pt is admitted to the hospital for treatment and further evaluation of hypertensive crisis. Hypertensive urgency Pt with uncontrolled HTN; appears symptomatic with headache, lightheadedness/dizziness Currently on hctz and lisinopril, unclear compliance or for how long Cardiology consulted in ED, received multiple agents with little BP improvement Will check renal ultrasound to rule out renal artery stenosis Cardiology following BP currently acceptable 150/66; will hold off on additional agents at this time Monitor BP closely Monitor on telemetry Chest pressure Central, non-radiating, ongoing x2 days Will get EKG, troponin Monitor on telmetry Heart murmur Will get echo Abdominal pain Pt with N/V/D since last evening CT negative for acute abdomen Will check C diff, stool studies Analgesics, antiemetics Diet as tolerated Nicotine dependence Currently smoking half a pack daily NRT Full Code Attending:?Dr. Mukherjee DVT Prophylaxis: Lovenox Pt will require a hospitalization of at least two nights for treatment of?hypertensive urgency with symptomatic uncontrolled HTN. Pt will require careful BP management, close cardiac monitoring, additional workup, and specialist consultation with Cardiology. Quality Stroke Does the patient have a stroke diagnosis?: No VTE Prior VTE?: No VTE Risk Level:: Medical - moderate - high VTE Device Contraindication: Treatment Not Indicated VTE Drug Contraindication: N/A - Med Ordered
[2025-03-08 15:45] LABS: Troponin-I High Sensitivity 9.6 ng/L (<3.5-35.0)
[2025-03-08] MEDS: 0.9 % Sodium Chloride Flush 3 ML SYRINGE IVFLUSH ×2 (17:30→23:10)
[2025-03-09] VITALS (8 sets, daily range): BP systolic 133–181; BP diastolic 61–84; PULSE 48–56; RESP 16–18; TEMP 36.1–36.7; O2SAT 93–96
[2025-03-09 06:56] LABS: Anion Gap 12 (12-20); Blood Urea Nitrogen 17 mg/dL (9-16); Calcium 8.2 mg/dL (8.4-10.2); Carbon Dioxide 30 mmol/L (22-29); Chloride 99 mmol/L (96-108); Creatinine Clr Calc Pharmacy 91.6; Estimated Glomerular Filt Rate > 60; Potassium 3.8 mmol/L (3.3-5.1); Sodium 137 mmol/L (135-145)
[2025-03-09] MEDS: 0.9 % Sodium Chloride Flush 3 ML SYRINGE IVFLUSH ×3 (08:18→20:34)
[2025-03-09] MEDS: Nicotine 14 MG PATCH.TD24 TRANSDERMA (08:18)
[2025-03-09] MEDS: Butalb/Acetamin/Caff 50/325/40 TABLET 1 TAB PO (09:58)
--- NOTE | 2025-03-09 10:09 | HO.PM.IMPN ---
Subjective Subjective Date of Service: 03/09/25 Interval History: mild abd pain Physical Exam Exam: Exam: General: AO X 3, no acute distress Resp: CTA bilateral, no accessory muscles used CVS: S1,S2,RRR GI: soft, non tender, non distended Neuro: motor grossly intact, alert Psych: appropriate affect, appropriate insight Vital Signs: Vital Signs: Last Vital Signs Temp 97.9 F 03/09/25 07:59 Pulse 52 03/09/25 07:59 Resp 18 03/09/25 07:59 BP 168/72 H 03/09/25 09:38 Pulse Ox 95 03/09/25 07:59 O2 Del Method Room Air 03/09/25 07:59 BMI result Body Mass Index 34.8 Objective Data Active Medications Acetaminophen (Acetaminophen 325 Mg Tablet) 650 mg PO Q6H PRN PRN Reason: Pain, Mild 1-3,fever,headache Last Admin: 03/09/25 08:19 Dose: 650 mg Documented By: MARCIAL Acetaminophen/Butalbital/Caffeine (Butalb/Acetamin/Caff 50/325/40 Tablet) 1 tab PO Q4H PRN PRN Reason: Headache Last Admin: 03/09/25 09:58 Dose: 1 tab Documented By: MARCIAL Amlodipine Besylate (Amlodipine Besylate 5 Mg Tablet) 5 mg PO DAILY [facility]; Protocol Last Admin: 03/09/25 09:58 Dose: 5 mg Documented By: MARCIAL Calcium Carbonate (Calcium Carbonate 750 Mg Tab.Chew) 750 mg PO Q4H PRN PRN Reason: Heartburn Enoxaparin Sodium (Enoxaparin Sodium 40 Mg/0.4 Ml Syringe) 40 mg SUBCUT Q24H PACO Last Admin: 03/08/25 14:58 Dose: 40 mg Documented By: JACQUES Hydrochlorothiazide (Hydrochlorothiazide 25 Mg Tablet) 25 mg PO DAILY [facility]; Protocol Last Admin: 03/09/25 08:17 Dose: 25 mg Documented By: MARCIAL Lisinopril (Lisinopril 40 Mg Tablet) 40 mg PO DAILY [facility]; Protocol Last Admin: 03/09/25 08:17 Dose: 40 mg Documented By: MARCIAL Magnesium Hydroxide (Milk Of Magnesia 30 Ml Oral.Susp) 30 ml PO DAILY PRN PRN Reason: Constipation Melatonin (Melatonin 3 Mg Tablet) 6 mg PO BEDTIME PRN PRN Reason: Insomnia Last Admin: 03/08/25 23:11 Dose: 6 mg Documented By: LOLA Comments: requested sleep Nicotine (Nicotine 14 Mg Patch.Td24) 14 mg TRANSDERMA DAILY [facility] Last Admin: 03/09/25 08:18 Dose: 14 mg Documented By: MARCIAL Ondansetron HCl (Ondansetron Hcl 4 Mg/2 Ml Vial) 4 mg IVPUSH Q8H PRN PRN Reason: Nausea and Vomiting Sodium Chloride (0.9 % Sodium Chloride Flush 3 Ml Syringe) 3 ml IVFLUSH QSHIFT [facility] Last Admin: 03/09/25 08:18 Dose: 3 ml Documented By: MARCIAL Labs 03/08/25 08:10 03/09/25 06:27 Labs: Laboratory Results - last 24 hr 03/08/25 03/09/25 10:54 06:27 Anion Gap 12 Estim Creat Clear Calc 91.6 Estimated GFR > 60 Random Glucose 110 Calcium 8.2 L D Urine Color Yellow Urine Appearance Clear Urine pH 6.0 Ur Specific [place] >= 1.030 H Urine Protein Trace Urine Glucose (UA) Negative Urine Ketones Negative Urine Blood Negative Urine Nitrite Negative Ur Leukocyte Esterase Negative Assessment and Plan (1) Hypertensive urgency: Status: Acute Plan 65M PMH HTN presented with abd pain , n/v found to have hypertensive urgency Hypertensive urgency Improving, continue hydrochlorothiazide and lisinopril, adding amlodipine Shown to have renal artery stenosis, follow up CT angio, nephrology eval Monitor blood pressure Chest pressure with murmur Check echo Abdominal pain nausea and vomiting and diarrhea Check stool studies DVT prophylaxis Lovenox Full Code reason for continued hospitalization:bp control Quality Stroke Does the patient have a stroke diagnosis?: No VTE Prior VTE?: No VTE Risk Level:: Medical - moderate - high VTE Device Contraindication: Treatment Not Indicated VTE Drug Contraindication: N/A - Med Ordered
[2025-03-09] MEDS: iohexoL 350 MG/ML 100 ML INFUS..BTL IV (10:28)
--- NOTE | 2025-03-09 10:28 | PC.NURSE ---
Patient reported he receives methadone 65 mg daily at [facility], this RN attempted to call clinic for verification but the clinic is closed.
--- NOTE | 2025-03-09 15:28 | MHC.CM.PN ---
IMM 03/09/25 DX Hypertensive urgency Sent from [facility] by himself Unsteady gait uses cane. 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 Patients sister will provide transportation home. A new HCP has been documented. Patient named his sister Katty.
--- NOTE | 2025-03-10 | ECG_ITS ---
Test Reason : pain Blood Pressure : */* mmHG Vent. Rate : 52 BPM Atrial Rate : 52 BPM P-R Int : 152 ms QRS Dur : 92 ms QT Int : 474 ms P-R-T Axes : 14 -30 21 degrees QTcB Int : 440 ms Sinus bradycardia Left axis deviation Minimal voltage criteria for LVH, may be normal variant ( [place] product ) Abnormal ECG When compared with ECG of 08-Mar-2025 14:55, No significant change was found Referred By: Kevin Elena Electronically Signed By: Angel Holden
[2025-03-10 04:00] VITALS: BP 160/80; PULSE 54; RESP 18; TEMP 37.2; O2SAT 96
--- NOTE | 2025-03-10 06:39 | PC.NURSE ---
(03/09) pt c/o L sided pain before bed, declined any medication, applied heat with good effect per pt. Pt ambulated with staff to BR x2 with no other c/o pain throughout night. Pt wakes this morning c/o 8/10 pain to L side as well as his chest. MD notified, EKG obtained, labs ordered and medical coordinator pesticide use per OCT. safety precautions remain in place, call campos within reach, pt instructed to call if pain increases.
--- NOTE | 2025-03-10 07:00 | CA_ITS ---
Transthoracic Echocardiogram Patient (Last, First, Middle): Golden Hedrick R Gender: Male Date of : 1960 Age: 65 Procedure Date: 03/10/2025 Procedure Type: Transthoracic [place]ocardi[place] [facility] [place]: 167. cm Weight: 97.52 kg BSA: 2.06 m2 Heart Rate: 54 bpm BP: 160 / 74 mmHg Transfer Knitter: ROSALIE Referring MD: Krissy GUTIÉRREZ Symptoms: Murmur, chest pain, unconctrolled HTN Study Quality: Adequate w contrast ECG Rhythm: Bradycardia Conclusions: - Normal left ventricular size, thickness, systolic function, and wall motion. The visually estimated ejection fraction is between 60-65%. - E/E prime ratio is between 8 and 15 consistent with indeterminate filling pressures. - Normal right ventricular cavity size and systolic function. - The left atrium is likely dilated. The right atrium is likely dilated. Findings Procedure Information Contrast agent, definity, is being given per protocol without apparent complications. Left Ventricle Normal left ventricular size, thickness, systolic function, and wall motion. The visually estimated ejection fraction is between 60-65%. Abnormal diastolic function is noted. Spectral Doppler is indicative of an impaired relaxation filling pattern. E/E prime ratio is between 8 and 15 consistent with indeterminate filling pressures. Right Ventricle Normal right ventricular cavity size and systolic function. Atria The left atrium is likely dilated. The right atrium is likely dilated. Aortic Valve Normal aortic valve structure and function. There is no aortic valve stenosis. There is no aortic valve regurgitation. Mitral Valve The mitral valve appears normal. There is trace mitral valve regurgitation. There is no mitral valve stenosis. Pulmonic Valve The pulmonic valve is likely normal. Tricuspid Valve Normal tricuspid valve structure. There is trace tricuspid valve regurgitation. Normal right atrial pressure. There is no evidence of pulmonary hypertension. Great Vessels All visible segments of the aorta are normal in size. The visualized portions of the pulmonary artery and branches are normal. Venous The inferior vena cava is normal in size and collapses greater than 50% with inspiration. Pericardium/Pleural There is no evidence of pericardial effusion. Prior Study Comparison No prior study available for comparison. Measurements 2D Linear Measurements IVSd: 1.06 0.6-0.9/0.6-1.0 cm LVIDd: 5.28 3.9-5.3/4.2-5.9 cm LVIDd Index: 2.56 2.4-3.2/2.2-3.1 cm/m2 LVIDs: 3.04 2.0-3.6 cm LVPWd: 0.93 0.7-1.1 cm LA Diam: 4.50 2.7-3.8/3.0-4.0 cm LAIDs Index: 2.18 1.5-2.3 cm/m2 LV Mass: 246.36 67-162/88-224 g LV Mass Index: 119.59 43-95/49-115 g/m2 LVOT Diam: 2.00 3.0+(-)1.3 cm 2D Systolic Function EF 4C: 62.90 >55% EF 2C: 65.80 >55% EF BiP: 64.50 >55% Mitral Valve MV Pk E: 0.66 MV PK A: 0.84 MV Decel Time: 454.00 E/A: 0.80 E'Lateral: 7.72 E'Medial: 4.46 E/E' Med: 14.70 E/E' Lat: 8.50 PHT: 133.00 MVA PHT: 1.65 Decel Jones: 1.44 Aortic Valve AoV Pk Aurelio: 1.59 AoV Mn Aurelio: 1.09 AoV VTI: 0.36 AoV Pk Grad: 10.00 Aov Mn Grad: 6.00 LYNDSEY Cont.VTI: 2.92 LVOT LVOT Pk Aurelio: 1.35 LVOT Mn Aurelio: 0.91 LVOT VTI: 0.33 LVOT Pk Grad: 7.00 LVOT Mn Grad: 4.00 LVOT Diam: 2.00 LVOT Area: 3.14 Diastolic Function MV Pk E: 0.66 MV Pk A: 0.84 E/A: 0.80 E'Medial: 4.46 E/E' Med: 14.70 E' Laterial: 7.72 E/E' Lat: 8.50 Right Ventricle TAPSE (mm): 27.70 TVS' Aurelio: 14.50 Tricuspid Valve TR Pk Aurelio: 1.58 TR Pk Grad: 10.00 RA Press: 3.00 RVSP: 13.00 Great Vessels Aorta Sinus of Valsalva: 3.40 2.0-3.5 cm Ao Asc: 3.40 2.1-3.4 cm Ao Arch: 3.30 Pulmonary Valve PV Pk Aurelio: 1.47 Peak PV Grad: 9.00 Updated in Other Vendor System with Status of Final Angel Holden MD electronically signed on 03/10/2025 1:14:39 PM with status of Final
[2025-03-10 07:03] VITALS: BP 160/74; PULSE 51; RESP 18; TEMP 36.8; O2SAT 94
[2025-03-10 07:07] LABS: Hematocrit 39.3 % (42.0-52.0); Hemoglobin 12.9 g/dl (14.0-18.0); Mean Corpuscular HGB Conc 32.8 g/dl (31.0-36.0); Mean Corpuscular Hemoglobin 31.0 pg (27.0-33.0); Mean Corpuscular Volume 94.5 fL (80.0-98.0); NRBC Abs Auto 0.000 X10*3/uL (0.0-0.012); NRBC Pct Auto 0.0 /100WBC (0.0-0.2); Platelet Count 243 X10*3/uL (160-400); Red Blood Count 4.16 X10*6/uL (4.60-5.80); White Blood Count 8.0 X10*3/uL (4.8-10.8)
[2025-03-10 07:24] LABS: Anion Gap 12 (12-20); Blood Urea Nitrogen 13 mg/dL (9-16); Calcium 8.7 mg/dL (8.4-10.2); Carbon Dioxide 33 mmol/L (22-29); Chloride 98 mmol/L (96-108); Creatinine Clr Calc Pharmacy 112.0; Estimated Glomerular Filt Rate > 60; Magnesium 2.1 mg/dL (1.6-2.6); Potassium 4.3 mmol/L (3.3-5.1); Sodium 139 mmol/L (135-145)
[2025-03-10 07:28] LABS: Troponin-I High Sensitivity 8.9 ng/L (<3.5-35.0)
--- NOTE | 2025-03-10 07:54 | HE.PHANOTE ---
RE METHADONE VERIFICATION 65 MG LAST DOSE GIVEN TAKE HOME DOSE FOR 03/09/25 FROM [facility] (LAST DOSE IN CLINIC GIVEN 03/08 AND 1X TAKE HOME BOTTLE GIVEN AT THAT TIME).
[2025-03-10] MEDS: Nicotine 14 MG PATCH.TD24 TRANSDERMA (08:19)
[2025-03-10] MEDS: 0.9 % Sodium Chloride Flush 3 ML SYRINGE IVFLUSH (08:28)
--- NOTE | 2025-03-10 09:28 | P.DS_ITS ---
DS: Providers Provider Date of Service: 03/10/25 Date of admission: 03/08/25 13:29 Date of discharge: 03/10/25 Primary care physician: Ora Aguilar PA-C Consults: 03/08/25 17:57 Consult to Nephrology Routine Consulting Provider: [facility] Reason for consultation: Right renal artery stenosis Has provider been notified: Yes DS: Diagnosis Discharge Diagnosis (1) Hypertensive urgency: Status: Acute DS: Summary Hospital Course Hospital Course: from initial hpi: 65-year-old Welsh-speaking male with a PMH significant for?HTN, current smoker who presents to the ED with?multiple complaints, including abdominal pain, nausea, vomiting, diarrhea, headache, at chest pressure. Pt reports abdominal pain began last night primarily left-sided. Multiple episodes of nausea and vomiting with 1 episode of loose stool this morning. Has been able to tolerate some p.o. intake while in the ED. pt also complains of ongoing headache for the past few days. Has experienced constant chest pressure for the past 2 days that is central and nonradiating. Was lightheaded and dizzy yesterday, and reports fell into the wall and struck his head when he attempted to stand up yesterday afternoon. Denies any acute vision changes. No SOB or difficulty breathing. Pt states has a long hx of high blood pressure and currently is compliant with hydrochlorothiazide and lisinopril. Reports saw his PCP 7-8 months ago, but prior to that it has been 5-10 years between visits. Pt has a BP machine at home but does not use it. It is unclear if pt was previously on antihypertensives prior to December of this year or how compliant he was with them. In the ED pt was noted to be in hypertensive crisis with elevated BP as high as 216/80. Was given multiple IV antihypertensives with minimal effect. ED provider contacted Cardiology who suggested admission to the hospital for cardiac monitoring and continued BP control. In the ED pt was initially bradycardic at 48 and hypertensive as high as 216/80. Labs were overall grossly unremarkable and around baseline for pt. UA negative. CT of head and abd/pelvis both negative for acute findings. Pt was treated in the ED with morphine, ondansetron, Protonix, dicyclomine, hydralazine 5 mg IV and 50 mg p.o., amlodipine 10 mg p.o., lisinopril 10 mg p.o., and carvedilol 6.25 mg p.o. Pt is admitted to the hospital for treatment and further evaluation of hypertensive crisis. hospital course: Patient was admitted for hypertensive urgency. He was continued hydrochlorothiazide and lisinopril and added amlodipine which was titrated up to 10 mg daily and hydralazine 10 mg t.i.d.. Blood pressure became better controlled. Was initially thought to have renal artery stenosis but this was negative on CT angio abdomen. CT did incidentally show pancreatic duct dilatation and recommendations are to follow up outpatient with Gastroenterology. Was also seen by Nephrology who will follow up patient outpatient. For chest pressure with murmur patient had no signs of ACS, echocardiogram is pending and should be followed up. For abdominal pain nausea and vomiting with diarrhea stool studies were negative and patient's symptoms resolved. Patient is feeling better will be discharged home. Time Attestation Discharge Coordination Time (in mins): 35 Quality: Safe Use of Opioids Does Pt have an Active Cancer Diagnosis on the Problem List?: No Quality: Stroke Does the patient have a stroke diagnosis?: No Physical Exam Vital Signs: Vital Signs: Last Vital Signs Temp 98.2 F 03/10/25 07:03 Pulse 51 03/10/25 07:03 Resp 18 03/10/25 07:03 BP 160/74 H 03/10/25 07:03 Pulse Ox 94 03/10/25 07:03 O2 Del Method Room Air 03/10/25 07:03 BMI result Body Mass Index 34.8 DS: Data Data Completed and Pending Labs on day of discharge: Laboratory Results - last 24 hr 03/10/25 05:41 WBC 8.0 RBC 4.16 L Hgb 12.9 L Hct 39.3 L MCV 94.5 MCH 31.0 MCHC 32.8 RDW 11.9 Plt Count 243 MPV 10.7 Absolute Nucleated RBC 0.000 Nucleated RBC % (auto) 0.0 Sodium 139 Potassium 4.3 Chloride 98 Carbon Dioxide 33 H Anion Gap 12 BUN 13 Creatinine 0.72 Estim Creat Clear Calc 112.0 Estimated GFR > 60 Random Glucose 109 Calcium 8.7 D Magnesium 2.1 Troponin I High Sens 8.9 Discharge Plan Discharge Anticipated Discharge Date/Time: 03/10/25 09:26 Patient Disposition: Home, Self-Care Discharge Diagnosis: Hypertensive urgency Referrals: Catalina Cisneros MD [Physician, Gastroenterology] - 1 Week Referral Note: panc duct dilitation on cT angio Ora Aguilar PA-C [Primary Care Provider, Internal Medicine] - 1 Week Discharge Medications: New hydralazine 10 mg Tablet 10 mg PO TID Qty: 270 0RF Protocol: Hold for SBP< HOLD for SBP < : 90 amlodipine 10 mg Tablet 10 mg PO DAILY Qty: 90 0RF Protocol: Hold for SBP< HOLD for SBP < : 90 Continued hydrochlorothiazide 25 mg tablet 25 mg PO DAILY lisinopril 40 mg tablet 40 mg PO DAILY methadone [Methadose] 10 mg/mL Concentrate 65 mg PO DAILY Discharge Orders: Discharge Order (Routine); Ordered 03/10/25 Ordered By: Macario Mukherjee Diet: Advance to usual diet Activity on Discharge: As tolerated Stand Alone Forms: Patient Portal Discharge page Print Language: Welsh Care Plan Goals: recovery Health Concerns: htn, biliary and panc duct dilitation Plan of Treatment: continue lisinopril and hctz, added hydralazine and amlodipine follow up with nephrology follow up with GI about incidental finding of biliary and panc duct dilitatoin on CTA Assessment: see above
--- NOTE | 2025-03-10 09:57 | P.CONNP_ITS ---
History of Present Illness Reason for Consult Consult date: 03/10/25 Chief Complaint Chief complaint: Hypertensive Urgency History of Present Illness Narrative: 65 y/o male with a medical history of HTN, tobacco use presented 03/08 with abdominal pain, nausea/vomiting, diarrhea, headache and chest pressure. Treated for hypertensive urgency, BP 216/80 in ED. He reports he was taking lisinopril and hctz as prescribed by PCP. Nephrology consulted for renal artery stenosis. renal duplex on 03/08 suggested possible stenosis. abdominal CTA on 03/09 revealed patent renal arteries without stenosis renal functions are normal, UA bland. Blood pressures remain elevated but improved, 160/74 this a.m. patient is on an PING inhibitor. Review of Systems Constitutional: Reports no additional constitutional complaints Cardiovascular: Denies chest pain, Denies leg edema, Denies lightheadedness and Denies dyspnea Respiratory: Denies dyspnea Gastrointestinal: Denies abdominal pain Genitourinary: Denies hematuria, Denies oliguria, Denies dysuria and Denies flank pain Musculoskeletal: Reports no additional musculoskeletal complaints Skin/Breast: Denies rash PMFSH Past Medical History Medical History (Updated 03/08/25 @ 15:12 by BROCK Nelson) Nicotine dependence Social History Social History Household Members: None Housing: Apartment Do you presently have visiting nurse or other home services: Yes (HEALTH AND 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) Alcohol intake: never Patient Tobacco Use Status: Former Tobacco user Tobacco use type: Cigarette Smoked in Last 30 Days: Yes Patient Interested in Nicotine Replacement: Yes Patient Given Instructions on How to Stop Smoking: No Second Hand Smoke Exposure: No Currently Displaying Signs/Symptoms of Drug Intoxication Withdrawal: No Advance Directives: No Advance Directives Information Provided: No Do you have a plan to hurt others: No Plan Recently lost weight without trying: No Nutrition Risks: No Nutritional Risk Poor oral hygiene: Yes (missing teeth) service: No Meds Allergies Allergy/AdvReac Type Severity Reaction Status Date / Time No Known Allergies Allergy Mild NONE Verified 03/08/25 07:23 Active Medications: Current Medications Acetaminophen (Acetaminophen 325 Mg Tablet) 650 mg PO Q6H PRN PRN Reason: Pain, Mild 1-3,fever,headache Last Admin: 03/09/25 21:49 Dose: 650 mg Acetaminophen/Butalbital/Caffeine (Butalb/Acetamin/Caff 50/325/40 Tablet) 1 tab PO Q4H PRN PRN Reason: Headache Last Admin: 03/09/25 09:58 Dose: 1 tab Amlodipine Besylate (Amlodipine Besylate 10 Mg Tablet) 10 mg PO DAILY [facility]; Protocol Last Admin: 03/10/25 08:43 Dose: 5 mg Calcium Carbonate (Calcium Carbonate 750 Mg Tab.Chew) 750 mg PO Q4H PRN PRN Reason: Heartburn Enoxaparin Sodium (Enoxaparin Sodium 40 Mg/0.4 Ml Syringe) 40 mg SUBCUT Q24H [facility] Last Admin: 03/09/25 16:01 Dose: 40 mg Hydralazine HCl (Hydralazine Hcl 10 Mg Tablet) 10 mg PO TID [facility]; Protocol Last Admin: 03/10/25 08:18 Dose: 10 mg Hydrochlorothiazide (Hydrochlorothiazide 25 Mg Tablet) 25 mg PO DAILY [facility]; Protocol Last Admin: 03/10/25 08:18 Dose: 25 mg Lisinopril (Lisinopril 40 Mg Tablet) 40 mg PO DAILY [facility]; Protocol Last Admin: 03/10/25 08:18 Dose: 40 mg Magnesium Hydroxide (Milk Of Magnesia 30 Ml Oral.Susp) 30 ml PO DAILY PRN PRN Reason: Constipation Melatonin (Melatonin 3 Mg Tablet) 6 mg PO BEDTIME PRN PRN Reason: Insomnia Last Admin: 03/08/25 23:11 Dose: 6 mg Nicotine (Nicotine 14 Mg Patch.Td24) 14 mg TRANSDERMA DAILY [facility] Last Admin: 03/10/25 08:19 Dose: 14 mg Ondansetron HCl (Ondansetron Hcl 4 Mg/2 Ml Vial) 4 mg IVPUSH Q8H PRN PRN Reason: Nausea and Vomiting Sodium Chloride (0.9 % Sodium Chloride Flush 3 Ml Syringe) 3 ml IVFLUSH QSHIFT [facility] Last Admin: 03/10/25 08:28 Dose: 3 ml Home Medications ?Medication ?Instructions ?Recorded ?Confirmed ?Last Taken ?Type hydrochlorothiazide 25 mg tablet 25 mg PO DAILY 03/08/25 03/08/25 History lisinopril 40 mg tablet 40 mg PO DAILY 03/08/2502/1803/08/25 History methadone 10 mg/mL oral 65 mg PO DAILY 03/10/2502/19/20/25 History concentrate (Methadose) Physical Exam Vital Signs: Last Vital Signs Temp 98.2 F 03/10/25 07:03 Pulse 51 03/10/25 07:03 Resp 18 03/10/25 07:03 BP 160/74 H 03/10/25 07:03 Pulse Ox 94 03/10/25 07:03 O2 Del Method Room Air 03/10/25 07:03 BMI result Body Mass Index 34.8 Const General: no acute distress, alert and awake Resp Effort & Inspection: normal respiratory effort and able to speak in complete sentences Auscultation: clear to auscultation bilaterally Cardio Rate: regular rate Rhythm: regular rhythm Heart sounds: S1 normal heart sound present and S2 normal heart sound present GI Palpation (GI): Soft to palpation and nontender General: Yes no CVA tenderness Back/Spine/Pelvis Back: no CVA tenderness Skin Rashes: no rashes Extrem General: No edema Results Lab Results 03/10/25 05:41 03/10/25 05:41 Lab results: Chemistry 03/08/25 03/09/25 03/10/25 08:10 06:27 05:41 Sodium 138 137 139 Potassium 4.4 3.8 4.3 Carbon Dioxide 32 H 30 H 33 H BUN 12 17 H 13 Creatinine 0.73 0.88 0.72 Calcium 8.8 8.2 L D 8.7 D Hematology 03/08/25 03/10/25 08:10 05:41 WBC 8.3 8.0 Hgb 12.8 L 12.9 L Plt Count 233 243 Urinalysis 03/08/25 10:54 Urine Color Yellow Urine Appearance Clear Urine pH 6.0 Ur Specific [place] >= 1.030 H Urine Protein Trace Urine Glucose (UA) Negative Urine Ketones Negative Urine Blood Negative Urine Nitrite Negative Ur Leukocyte Esterase Negative Assessment and Plan (1) Hypertensive urgency: Status: Acute Plan Patient with hypertnsive urgency, renal artery stenosis ruled out. Blood pressures improving, though remain suboptimal. Amlodipine dose increased to 10mg daily. Recommend continuing hadralazine 10mg TID, hydrochlorothiazide 25mg daily, lisinopril 40mg daily. recommend low salt diet, weight loss, exercise. Patient is ok for discharge from renal standpoint. Will arrange for outpatient follow up appointment in office. Procedures Date of Service Date of Service: 03/10/25
[2025-03-10] MEDS: methADONE HCl 20 MG/2 ML ORAL.CONC 65 MG PO (10:42)
--- NOTE | 2025-03-10 10:51 | MHC.CM.PN ---
Pt has been medically cleared to [place], family to transport him home, DCP is home, self care.
== END 2025-03-10 13:56 | disposition home or self-care (01) | DRG 305 ==
LOC: HO.ED 07:44 → HO.EDOVER 13:35 → HO.IMC 15:00
PROVIDERS: Physician Assistant Medical; Admitting Provider Student in an Organized Health Care Education/Training Program; Emergency Provider Emergency Medicine; Visit Provider Internal Medicine
DX: I16.0 Hypertensive urgency (principal); F11.20 Opioid dependence, uncomplicated; F17.210 Nicotine dependence, cigarettes, uncomplicated; Z71.6 Tobacco abuse counseling; Z20.822 Contact with and (suspected) exposure to COVID-19; Z79.899 Other long term (current) drug therapy
CPT/HCPCS: 36415; 70450; 74175; 74177; 76775; 80048; 80053; 81003; 83735; 84484; 85025; 85027; 87637; 93005; 93306; 93975; 99222; 99285; J0360; J1171; J1650; J2270; J2405; J2470; Q9957; Q9967

== ENCOUNTER → 2025-03-08 08:30 | Outpatient (BNV) | payer OTHER, SELFPAY | PROVIDERS: Visit Provider Radiology Diagnostic Radiology | DX: R10.9 Unspecified abdominal pain (principal); N28.1 Cyst of kidney, acquired; R51.9 Headache, unspecified | CPT/HCPCS: 70450; 74177; 93975 ==

== ENCOUNTER 2025-03-08 13:29 | Outpatient (BNV) | payer OTHER, SELFPAY | END 2025-03-08 14:55 | PROVIDERS: Admitting Provider Student in an Organized Health Care Education/Training Program; Emergency Provider Emergency Medicine; Visit Provider Internal Medicine | DX: R00.1 Bradycardia, unspecified (principal) | CPT/HCPCS: 93010 ==

== ENCOUNTER 2025-03-08 13:29 | Outpatient (BNV) | payer OTHER, SELFPAY | END 2025-03-10 07:00 | PROVIDERS: Admitting Provider Student in an Organized Health Care Education/Training Program; Emergency Provider Emergency Medicine; Visit Provider Internal Medicine Cardiovascular Disease | DX: R01.1 Cardiac murmur, unspecified (principal); R00.1 Bradycardia, unspecified | CPT/HCPCS: 93010; 93306 ==

== ENCOUNTER 2025-03-08 13:29 | Outpatient (BNV) | payer OTHER, SELFPAY | END 2025-03-09 12:00 | PROVIDERS: Admitting Provider Student in an Organized Health Care Education/Training Program; Emergency Provider Emergency Medicine; Visit Provider Radiology Diagnostic Radiology | DX: N28.1 Cyst of kidney, acquired (principal) | CPT/HCPCS: 74175 ==

== ENCOUNTER → 2025-03-08 13:29 | Outpatient (BNV) | payer OTHER, SELFPAY | PROVIDERS: Admitting Provider Student in an Organized Health Care Education/Training Program; Emergency Provider Emergency Medicine; Visit Provider Student in an Organized Health Care Education/Training Program | DX: I16.0 Hypertensive urgency (principal) | CPT/HCPCS: 99223; 99232; 99239 ==

== ENCOUNTER → 2025-03-08 13:29 | Outpatient (BNV) | payer OTHER, SELFPAY | PROVIDERS: Admitting Provider Student in an Organized Health Care Education/Training Program; Emergency Provider Emergency Medicine; Visit Provider Nurse Practitioner Family | DX: I16.0 Hypertensive urgency (principal) | CPT/HCPCS: 99221 ==

== ENCOUNTER 2025-03-28 12:22 | Outpatient (REF) | payer OTHER, SELFPAY ==
--- OUTSIDE RECORDS SUMMARY | 2025-03-28 12:24 | XMS_ITS | Clinical Summary ---
Author Organization [employer] Address [address] [facility] [address] [place] [address] Care Team Providers Care Assembly Machine Tool Setter Name Role Phone Unavailable Primary Care Provider Unavailabl e Encounters Date Type Department Care Team Description 03/28/2025 Telephone [facility] [address] [place] [phone] Jose Faria MD Lab Orders (Requesting T-Spot Order) 02/24/2025 Telephone [facility] [address] [place] [phone] Jose Faria MD new pt (Pt requesting new pt appt ) 02/19/[address] [phone] Luc Gonzalez MD New pt appt from Last 3 Months Social History Tobacco Use Types Packs/Day Years Used Date Smoking Tobacco: Never Assessed Sex and Gender Information Value Date Recorded Sex Assigned at Male 06/20/2022 10:16 AM EDT Legal Sex Male 10:16 AM EDT Gender Identity Not on file Sexual Orientation Not on file Plan of Treatment Upcoming Encounters Date Type Department Care Team ([facility] st Contact Info) Description 06/18/2025 9:00 AM EDT Office Visit [facility] [address] [place] [phone] Jose Faria MD [address] [place] [phone] Health Maintenance Due Date Last Done Comments CT Colonography 1960 Colonoscopy 1960 Colorectal Cancer Screening 1960 Depression Screening 1960 FIT DNA/Cologuard 1960 FIT 1960 FOBT 1960 Lipid Panel 1960 SDOH Screening 1960 Sigmoidoscopy 1960 Alcohol/Substance Use Screening 1972 Tobacco Screening 1972 Hepatitis A Vaccines (1 of 2 - Risk 2-dose series) 01/14/1979 Hepatitis B Vaccines (1 of 3 - Risk 3-dose series) 2020 RSV Patients and Patients Aged 60 years or older (1 - Risk 60-74 years 1-dose series) 2020 COVID-19 Vaccine (1 - 2023-2 5 season) 2024 Influenza Vaccine (#1) 2025 0, 05/27/2017 DTaP/Tdap/Td Vaccines (2 - T d or Tdap) 03/21/2035 03/21/2025 Pneumococcal Vaccine: 50+ Years Completed 03/21/2025, 01/20/2017 Zoster Vaccines Completed 03/21/2025, 06/16/2020 HIB Vaccines Aged Out No longer eligi [...] patient's age to complete this topic Meningococcal Vaccine Aged Out No claudia chuck eligible based on patient's age to complete this topic RSV under 20 months Aged Out No longe r eligible based on patient's age to complete this topic Rotavirus Vaccines Aged Out No longer eligible based on patient's age to complete this topic Insurance [id number]ARE < 65 [place] [id number]
--- OUTSIDE RECORDS SUMMARY | 2025-03-28 12:25 | XMS_ITS | Patient Health Record ---
Author Organization [facility] [facility] Address [address] [place] [address] Care Team Providers Care Sales And Service Consultant Name Role Phone Payam Shine Jr Reason For Referral No Information Plan Of Treatment No Information
--- OUTSIDE RECORDS SUMMARY | 2025-03-28 12:25 | XMS_ITS | Clinical Summary ---
Author Organization [facility] Address [address] [place] [address] Care Team Providers Care Glass Science Engineer Name Role Phone Chichi Rodarte [facility] Primary Care Provider [phone] Medical History Medical History Date Comments Benign [...] Screening: Colonoscopy 07/20/2022 Hepatitis C Screening 07/20/2022 Lung Cancer Screening (Low Dose CT) 07/20/2022 Social Influencers of Health Screening 07/20/2022 COVID-19 Vaccine ( season) 2024 Depression Screening 08/21/2024 Falls Risk Assessment 01/14/2025 Influenza Vaccine (#1) 2025 10/22/2019, 2016 Hypertension/CHF/CAD Annual BMP Blood Test 03/21/2026 03/21/2025, 04/26/2023 Cholesterol Screening (Lipid Panel) 03/21/2030 03/21/2025, 04/26/2023, 04/26/2023, Additional history exists HIB Vaccines Aged Out No longer eligi [...] 20 months Aged Out No longer eligible based on patient's age to complete this topic Varicella Vaccines Aged Out No longer eligible based on patient's age to complete this topic Care Teams Glass Science Engineer Relationship Specialty Start Date End Date Chichi Rodarte FNP [address] [place] [phone] PCP - General 04/28/23
[2025-03-31 14:12] LABS: TS Negative Control Passed; TS Panel A 0; TS Panel B 0; TS Positive Control Passed; TSpotTB Negative (Negative)
== END 2025-03-28 12:23 | disposition home or self-care (01) ==
LOC: HO.HHCL 12:22
PROVIDERS: PCP Internal Medicine Geriatric Medicine; Visit Provider Internal Medicine Geriatric Medicine
DX: Z11.1 Encounter for screening for respiratory tuberculosis (principal)
CPT/HCPCS: 36415; 86481

== ENCOUNTER 2025-05-12 06:58 | Emergency (ER) | payer OTHER, SELFPAY ==
[2025-05-12] VITALS (20 sets, daily range): BP systolic 169–244; BP diastolic 70–104; PULSE 42–61; RESP 14–18; TEMP 36.3–37.1; O2SAT 94–97; BMI 32.6
--- NOTE | ~2025-05-12 | CT_ITS ---
EXAMINATION: CT FACIAL BONES WITHOUT CONTRAST CLINICAL INFORMATION: Fall COMPARISON: None available. TECHNIQUE: Spiral CT imaging of the maxillofacial bones and mandible was performed. Multiplanar reformatted imaging constructed from the axial data set. This CT examination was performed using dose optimization techniques as appropriate, variously including the following: *Automated exposure control *Adjustment of mA and/or kV according to patient size (this includes techniques or standardized protocols for targeted exams where dose is matched to indication/reason for exam; i.e. extremities or head) *Use of iterative reconstruction technique FINDINGS: There are comminuted, minimally displaced left nasal bone fractures, presumably acute. There is an avulsion fracture of the nasal process. The mandible is intact without fracture. The TM joints are normally oriented. The maxilla, orbits, zygomatic arches, pterygoid plates, and sphenoid bone are intact without fracture. No significant nasal septal deviation. Globes and orbital contents image normally. Paranasal sinuses are normally pneumatized throughout. No paranasal sinus fractures. There is opacification of the right mastoid tip. The tympanic spaces are aerated normally. Imaged cervical spine is intact. Imaged calvarium is intact. Imaged skull base is intact. Imaged maxillofacial/neck soft tissues appear normal. CT/CT facial bones wo IV con IMPRESSION: 1. Mildly comminuted, mildly displaced left nasal bone fractures. These are presumably acute. 2. Small avulsion fracture of the nasal process. 3. No additional maxillofacial or mandibular fracture. Electronically signed by: Oleg Herbert MD 05/12/2025 09:38 AM EDT
--- NOTE | ~2025-05-12 | CT_ITS ---
EXAMINATION: CT CERVICAL SPINE WITHOUT CONTRAST CLINICAL INFORMATION: Fall, neck pain COMPARISON: None available. TECHNIQUE: Spiral CT imaging of the cervical spine performed in axial plane without contrast. Multiplanar reformatted images were constructed from the axial data set. This CT examination was performed using dose optimization techniques as appropriate, variously including the following: *Automated exposure control *Adjustment of mA and/or kV according to patient size (this includes techniques or standardized protocols for targeted exams where dose is matched to indication/reason for exam; i.e. extremities or head) *Use of iterative reconstruction technique FINDINGS: CORONAL ALIGNMENT: -Normal. SAGITTAL ALIGNMENT: -Minimal straightening of the normal lordosis. No evidence of traumatic subluxation. C1-C2 AND CRANIOCERVICAL JUNCTION: -Intact and normally aligned. VERTEBRAL BODIES AND FACETS: -No fracture, compression deformity, or suspicious bone lesion. -Normal facet alignment without subluxation. -There are bulky vertebral and disc osteophytes ventrally spanning C4-C7, findings suggestive of DISH. DISCS: -Mild to moderate disc degeneration C4-5, C5-6, and C6-7. -Mild disc degeneration C2-3. CENTRAL CANAL: -No evidence of high-grade central canal narrowing or large disc herniation allowing for modality limitations. PREVERTEBRAL AND PARAVERTEBRAL SOFT TISSUES: -No prevertebral or paravertebral soft tissue edema or abnormal fluid collection. -Normal-appearing thyroid. -No mass or abnormal lymph nodes. LUNG APICES: -Clear bilaterally. CT/CT cervical spine wo IV con IMPRESSION: 1. No CT evidence of acute cervical spine fracture or injury. 2. Mild to moderate cervical spondylosis. Findings suggesting underlying DISH as detailed. Electronically signed by: Oleg Herbert MD 05/12/2025 10:07 AM EDT
--- NOTE | ~2025-05-12 | CT_ITS ---
EXAMINATION: CT HEAD WITHOUT CONTRAST CLINICAL INFORMATION: Fall COMPARISON: CT facial bones earlier same day. 03/08/2025. TECHNIQUE: Contiguous axial imaging was performed from the skull base to vertex without intravenous administration of contrast. This CT examination was performed using dose optimization techniques as appropriate, variously including the following: *Automated exposure control *Adjustment of mA and/or kV according to patient size (this includes techniques or standardized protocols for targeted exams where dose is matched to indication/reason for exam; i.e. extremities or head) *Use of iterative reconstruction technique FINDINGS: There is no evidence of intracranial hemorrhage or extra-axial fluid collection. There is no mass effect, or edema. No CT evidence of acute territorial infarct. Ventricles, sulci, and cisterns are normal in size and configuration for patient age. No hydrocephalus. No midline shift. Negative hyperdense MCA sign. Negative insular ribbon sign. Patchy periventricular and deep white matter hypoattenuation is consistent with mild to moderate small vessel ischemic changes. Normal pituitary. Mild atheromatous calcification of the bilateral carotid siphons and V4 segments vertebral arteries bilaterally. Globes and orbital contents image normally. No extracranial soft tissue abnormalities. The paranasal sinuses, mastoid air cells, and tympanic cavities are normally aerated. No suspicious bony abnormalities. No calvarial or skull base fracture. Redemonstration of comminuted left nasal bone fractures. CT/CT head/brain wo IV con IMPRESSION: No acute intracranial abnormality. No calvarial or skull base fracture. Electronically signed by: Oleg Herbert MD 05/12/2025 10:02 AM EDT
--- NOTE | 2025-05-12 07:04 | ECG_ITS ---
Test Reason : FALL, LOC/HEADSTRIKE Blood Pressure : */* mmHG Vent. Rate : 55 BPM Atrial Rate : 55 BPM P-R Int : 160 ms QRS Dur : 96 ms QT Int : 456 ms P-R-T Axes : 6 -32 32 degrees QTcB Int : 436 ms Sinus bradycardia Left axis deviation Minimal voltage criteria for LVH, may be normal variant ( Gurinder product ) Abnormal ECG When compared with ECG of 10-Mar-2025 06:12, No significant change was found Referred By: Generic ED Physician Electronically Signed By: Angel Holden
[2025-05-12 07:22] LABS: MANUAL DIFF FLAG NO
--- NOTE | 2025-05-12 07:22 | ED_ITS ---
HPI - General Adult General Chief complaint: Head Injury Stated complaint: head inj? Time Seen by Provider: 05/12/25 07:10 Source: patient Mode of arrival: ambulatory Limitations: no limitations History of Present Illness ED Provider: Cole Mondragon HPI narrative: 65 yold male with pmh of HTN presents to the ED for a fall. Patient states yesterday he was on his porch and he felt dizzy which caused him to fall. Patient denies loss of concsciousness or chest pain before falling. Patient states since than he has been asymptomatic. patient presents to the ED today to be evaluated. patient states no chest pain, shortness of breath, fever, chills, slurred speech, facial droop, nusaea, vomitting, loss of vsisoin, or parakysis of extremities. Related Data Home Medications ?Medication ?Instructions ?Recorded ?Confirmed hydrochlorothiazide 25 mg tablet 25 mg PO DAILY 03/08/25 lisinopril 40 mg tablet 40 mg PO DAILY 03/08/2502/18 methadone 10 mg/mL oral 65 mg PO DAILY 03/10/2502/19 concentrate (Methadose) Previous Rx's ?Medication ?Instructions ?Recorded amlodipine 10 mg tablet 10 mg PO DAILY #90 tabs 02/19 09/14 hydralazine 10 mg tablet 10 mg PO TID #270 tabs 03/10 amoxicillin 875 mg-potassium 1 tab PO Q12H 10 days #20 tabs 05/12/25 clavulanate 125 mg tablet naproxen 500 mg tablet 500 mg PO BID PRN pain #14 t abs 05/12/25 Allergies Allergy/AdvReac Type Severity Reaction Status Date / Time No Known Allergies Allergy Mild NONE Verified 05/12/25 07:01 Review of Systems 2 Review of Systems: fall Yes all other systems are reviewed and are negative [facility] Past Medical History Medical History (Updated 05/12/25 @ 11:46 by BROCK Suazo) Nicotine dependence Social History Social History Household Members: None Housing: Apartment Do you presently have visiting nurse or other home services: Yes (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) Alcohol intake: never Patient Tobacco Use Status: Former Tobacco user Tobacco use type: Cigarette Second Hand Smoke Exposure: No service: No Physical Exam ED Vital Signs: Vital Signs - 24 hr 05/12/25 07:01 05/12/25 07:40 05/12/25 07:48 Temperature 97.3 F 98.0 F Pulse Rate 61 52 Respiratory Rate 16 16 Blood Pressure 244/104 H 199/81 H 192/78 H Pulse Oximetry 95 94 Oxygen Delivery Method Room Air Room Air 05/12/25 08:04 05/12/25 08:19 05/12/25 08:23 Temperature Pulse Rate 50 Respiratory Rate 16 Blood Pressure 182/74 H 181/77 H 197/83 H Pulse Oximetry 94 Oxygen Delivery Method Room Air 05/12/25 09:05 05/12/25 09:41 05/12/25 09:44 Temperature 98.1 F Pulse Rate 50 53 Respiratory Rate 17 16 Blood Pressure 209/83 H 197/83 H 197/83 H Pulse Oximetry 95 95 Oxygen Delivery Method Room Air Room Air 05/12/25 09:55 05/12/25 10:05 05/12/25 10:13 Temperature 98.0 F Pulse Rate 49 L Respiratory Rate 15 Blood Pressure 180/76 H 193/70 H 176/81 H Pulse Oximetry 94 Oxygen Delivery Method Room Air 05/12/25 11:46 05/12/25 11:56 05/12/25 12:01 Temperature 98.7 F Pulse Rate 42 L 45 L 48 L Respiratory Rate 18 18 14 Blood Pressure 199/86 H 204/80 H 211/76 H Pulse Oximetry 94 94 97 Oxygen Delivery Method Room Air Room Air Room Air 05/12/25 12:01 05/12/25 12:06 05/12/25 12:44 Temperature Pulse Rate 49 L 51 Respiratory Rate 18 16 Blood Pressure 211/76 H 200/85 H 195/81 H Pulse Oximetry 95 96 Oxygen Delivery Method Room Air Room Air 05/12/25 12:46 05/12/25 13:00 05/12/25 13:20 Temperature 98.0 F Pulse Rate 47 L 56 Respiratory Rate 16 18 Blood Pressure 195/81 H 169/79 H 169/79 H Pulse Oximetry 95 94 Oxygen Delivery Method Room Air Room Air BMI result Body Mass Index 32.6 Const General: cooperative, healthy appearing, comfortable, no acute distress, well developed, alert, awake and Physically active Orientation/consciousness: patient oriented x3 HENMT Head: Yes normal to inspection, Yes No palpable skull fracture present and Yes normocephalic Head images: 2 1. Positive for abrasion. Negative for ecchymosis, crepitus, deformity, or active bleeding. 2. Positive for abrasion. Negative for ecchymosis, crepitus, deformity, or active bleeding. 3. Positive for abrasion. Negative for ecchymosis, crepitus, deformity or active bleeding Eyes General: appearance normal, both eyes and all related structures Neck Neck: Yes normal visual inspection, Yes full ROM, Yes no lymphadenopathy, Yes no meningeal signs, Yes trachea midline, Yes supple, No anterior neck swelling and No tender Chest Chest palpation & inspection: normal inspection of the chest and normal palpation of entire chest wall Resp Effort & Inspection: normal respiratory effort and able to speak in complete sentences Auscultation: clear to auscultation bilaterally Cardio Jugular venous distension: no JVD Heart sounds: S1 normal heart sound present and S2 normal heart sound present GI Inspection: Yes normal to inspection Palpation (GI): Soft to palpation, not firm, nontender, no guarding and not rigid General: Yes no CVA tenderness Back/Spine/Pelvis Back: no CVA tenderness and No back tenderness Skin General skin exam: elasticity normal Neuro General: patient oriented x3, gait normal, tone normal, moves all extremities, Normal light touch and pain sensation, no meningeal signs, no focal motor deficits, CN's II-XI intact bilaterally and normal sensation to monofilament Extrem General: Yes normal to inspection, Yes full ROM and Yes capillary refill normal Psych Appearance: grossly normal, well kempt and not disheveled NIH Stroke Scale Internal: Initial- Upon Arrival Level of Consciousness: Alert Level of Consciousness Questions: Answers both questions correctly Level of Consciousness Commands: Performs both tasks correctly Best Gaze: Normal Visual: No visual loss Facial Palsy: Normal Motor Arm (Right): No drift Motor Arm (Left): No drift Motor Leg (Right): No drift Motor Leg (Left): No drift Limb Ataxia: Absent Sensory: Normal Best Language: No aphasia Dysarthia: Normal Extinction and Inattention: No abnormality Score: 0 Medications Administered Discontinued Medications Generic Name Dose Route Start Last Admin Trade Name Freq PRN Reason Stop Dose Admin Hydralazine HCl 5 mg 05/12/25 09:19 05/12/25 09:41 Hydralazine Hcl 20 Mg/Ml Vial IVPUSH 05/12/25 09:20 5 mg ONCE ONE Administration Protocol Hydralazine HCl 10 mg 05/12/25 12:17 05/12/25 12:44 Hydralazine Hcl 20 Mg/Ml Vial IVPUSH 05/12/25 12:18 10 mg ONCE ONE Administration Protocol Medical Decision Making Medical Decision Making [facility] Narrative: 65-year-old male presents to ED for fall that occurred yesterday. Patient states fell in the sports due to feeling dizzy. Patient states no chest pain or abdominal pain before falling. Patient states since then he has been asymptomatic. Patient came to the ED today to be evaluated. Patient denies any dizziness, chest pain, shortness of breath, abdominal pain, slurred speech, facial droop, paralysis of extremities, fever, chills, weakness. Patient is hypertensive. Patient took his med this morning. We will recheck blood pressure. Patient states for imaging. Labs EKG ordered. 8:03pm: patient's blood pressure now 199/81. we will hold off on meds and continue to observe. 8:43pm: Blood pressure on monitor 200/77. We will order labetalol 20 mg 9:15pm: Patient is aortic sinus was in 50s and 49. We will cancel labetalol. Hydralazine 5mg ordered. 11:41pm: Patient's blood pressure improved with hydralazine. Two troponins negative. Negative for signs of hypertensive emergency. Imaging positive for nasal fractures. Patient will be discharged with antibiotics informed to follow up with ENT new ingrowing. No signs of stroke. Not suspecting any traumatic pulmonary abdominal emergent medical etiology or any other life-threatening etiology. Not suspecting PE. Patient explained worrisome signs informed to return to the ED. 12:07pm: Repeat blood pressure 211/76. patient given another hydralazine. 13:20pm: patient's blood pressure improved. Patient explained worrisome signs and informed to return to the ED immediately Differential Diagnosis Differential Diagnoses: The differential diagnosis associated with the presentation includes (Brain bleed, facial trauma fracture neck fracture) Admission/Observation Consideration of admission/observation: Escalation of care including admission/observation considered Lab Data [facility] Lab Attestation statement: I reviewed the patient's lab results. 05/12/25 07:18 05/12/25 07:18 Labs: Lab Results 05/12/25 05/12/25 05/12/25 Range/Units 07:18 08:29 09:20 WBC 9.1 (4.8-10.8) X10*3/uL RBC 4.30 L (4.60-5.80) X10*6/uL Hgb 13.4 L (14.0-18.0) g/dl Hct 40.8 L (42.0-52.0) % MCV 94.9 (80.0-98.0) fL MCH 31.2 (27.0-33.0) pg MCHC 32.8 (31.0-36.0) g/dl RDW 12.1 (11.0-16.0) % Plt Count 251 (160-400) X10*3/uL MPV 9.7 (9.4-12.4) fL Immature Gran % (Auto) 0.6 H (0.0-0.4) % Neut % (Auto) 65.1 (45-73) % Lymph % (Auto) 19.1 L (20-40) % Darke % (Auto) 10.1 (2-11) % Eos % (Auto) 4.4 H (0-4) % Baso % (Auto) 0.7 (0-2) % Lymph # (Auto) 1.7 (1.2-4.9) X10*3/uL Darke # (Auto) 0.9 (0.1-1.2) X10*3/uL Eos # (Auto) 0.4 (0.0-0.4) X10*3/uL Baso # (Auto) 0.1 (0.0-0.2) X10*3/uL Abs Immat Gran (auto) 0.05 H (0.00-0.03) X10*3/uL Absolute Neuts (auto) 5.9 (2.0-8.3) x10*3/uL Absolute Nucleated RBC 0.000 (0.0-0.012) X10*3/uL Nucleated RBC % (auto) 0.0 (0.0-0.2) /100WBC PT 10.8 L (10.9-12.4) SEC INR 0.9 (0.9-1.1) APTT 27.8 (26.7-34.1) SEC Sodium 139 (135-145) mmol/L Potassium 4.1 (3.3-5.1) mmol/L Chloride 102 (96-108) mmol/L Carbon Dioxide 32 H (22-29) mmol/L Anion Gap 9 L (12-20) BUN 15 (9-16) mg/dL Creatinine 0.74 (0.5-1.4) mg/dL Estim Creat Clear Calc 112.5 Estimated GFR > 60 Random Glucose 115 (60-115) mg/dL Calcium 9.0 (8.4-10.2) mg/dL Total Bilirubin 0.7 (0.0-1.0) mg/dL AST 49 H (5-37) U/L ALT 45 H (0-40) U/L Alkaline Phosphatase 109 (39-117) U/L Troponin I High Sens 6.0 5.9 (<3.5-35.0) ng/L Total Protein 7.8 (6.5-8.0) g/dL Albumin 4.0 (3.5-5.0) g/dL Independent Interpretation I performed an independent interpretation of an: EKG (Sinus Chris) Radiology Impression Discussion of test interpretation with radiology: I have reviewed the radiologist's reading. Independent Historian Clinical information obtained from an independent historian. History obtained from or confirmed by: Other (Patient ) Prescription Management I considered prescription management with: Pain Medication and Antibiotic Discharge Plan Discharge Clinical Impression: Fracture, nasal Hypertension Qualifiers: Hypertension type: unspecified Qualified Code(s): I10 - Essential (primary) hypertension Patient Disposition: Home, Self-Care Instructions: Nasal Fracture (ED) Additional Instructions: You have nasal fracture. You will need follow-up with the ENT. You will be discharged with antibiotics and pain medication nausea, vomiting, headache, dizziness, chest pain, shortness of breath, slurred speech, facial droop, paralysis of extremities, abdominal pain, or any other concerning symptoms. [address] [address] [address] Scan Report Signed Patient: Golden Hedrick MR#: [id number] : 1960 Acct:[id number] Age/Sex: 65 / M ADM Date: 05/12/25 Loc: .ED Attending Dr: Ordering Physician: Cole Mondragon Date of Service: 05/12/25 Procedure(s): CT facial bones wo IV con Accession Number(s): [id number] cc: Cole Mondragon; [facility]~ Report Number: [id number]: Total DLP = 368.00 mGy-cm Reason for Exam: fall EXAMINATION: CT FACIAL BONES WITHOUT CONTRAST CLINICAL INFORMATION: Fall COMPARISON: None available. TECHNIQUE: Spiral CT imaging of the maxillofacial bones and mandible was performed. Multiplanar reformatted imaging constructed from the axial data set. This CT examination was performed using dose optimization techniques as appropriate, variously including the following: *Automated exposure control *Adjustment of mA and/or kV according to patient size (this includes techniques or standardized protocols for targeted exams where dose is matched to indication/reason for exam; i.e. extremities or head) *Use of iterative reconstruction technique FINDINGS: There are comminuted, minimally displaced left nasal bone fractures, presumably acute. There is an avulsion fracture of the nasal process. The mandible is intact without fracture. The TM joints are normally oriented. The maxilla, orbits, zygomatic arches, pterygoid plates, and sphenoid bone are intact without fracture. No significant nasal septal deviation. Globes and orbital contents image normally. Paranasal sinuses are normally pneumatized throughout. No paranasal sinus fractures. There is opacification of the right mastoid tip. The tympanic spaces are aerated normally. Imaged cervical spine is intact. Imaged calvarium is intact. Imaged skull base is intact. Imaged maxillofacial/neck soft tissues appear normal. CT/CT facial bones wo IV con IMPRESSION: 1. Mildly comminuted, mildly displaced left nasal bone fractures. These are presumably acute. 2. Small avulsion fracture of the nasal process. 3. No additional maxillofacial or mandibular fracture. Ordering Physician: Cole Mondragon Date of Service: 05/12/25 Procedure(s): CT head/brain wo IV con Accession Number(s): [id number] cc: Cole Mondragon; [facility]~ Report Number: [id number]: Total DLP = 0.00 mGy-cm Reason for Exam: fall EXAMINATION: CT HEAD WITHOUT CONTRAST CLINICAL INFORMATION: Fall COMPARISON: CT facial bones earlier same day. 03/08/2025. TECHNIQUE: Contiguous axial imaging was performed from the skull base to vertex without intravenous administration of contrast. This CT examination was performed using dose optimization techniques as appropriate, variously including the following: *Automated exposure control *Adjustment of mA and/or kV according to patient size (this includes techniques or standardized protocols for targeted exams where dose is matched to indication/reason for exam; i.e. extremities or head) *Use of iterative reconstruction technique FINDINGS: There is no evidence of intracranial hemorrhage or extra-axial fluid collection. There is no mass effect, or edema. No CT evidence of acute territorial infarct. Ventricles, sulci, and cisterns are normal in size and configuration for patient age. No hydrocephalus. No midline shift. Negative hyperdense MCA sign. Negative insular ribbon sign. Patchy periventricular and deep white matter hypoattenuation is consistent with mild to moderate small vessel ischemic changes. Normal pituitary. Mild atheromatous calcification of the bilateral carotid siphons and V4 segments vertebral arteries bilaterally. Globes and orbital contents image normally. No extracranial soft tissue abnormalities. The paranasal sinuses, mastoid air cells, and tympanic cavities are normally aerated. No suspicious bony abnormalities. No calvarial or skull base fracture. Redemonstration of comminuted left nasal bone fractures. CT/CT head/brain wo IV con IMPRESSION: No acute intracranial abnormality. No calvarial or skull base fracture. Electronically signed by: Oleg Herbert MD 05/12/2025 10:02 AM EDT RP Ordering Physician: Cole Mondragon Date of Service: 05/12/25 Procedure(s): CT cervical spine wo IV con Accession Number(s): [id number] cc: Cole Mondragon; [facility]~ Report Number: [id number]: Total DLP = 1237.26 mGy-cm Reason for Exam: fall EXAMINATION: CT CERVICAL SPINE WITHOUT CONTRAST CLINICAL INFORMATION: Fall, neck pain COMPARISON: None available. TECHNIQUE: Spiral CT imaging of the cervical spine performed in axial plane without contrast. Multiplanar reformatted images were constructed from the axial data set. This CT examination was performed using dose optimization techniques as appropriate, variously including the following: *Automated exposure control *Adjustment of mA and/or kV according to patient size (this includes techniques or standardized protocols for targeted exams where dose is matched to indication/reason for exam; i.e. extremities or head) *Use of iterative reconstruction technique FINDINGS: CORONAL ALIGNMENT: -Normal. SAGITTAL ALIGNMENT: -Minimal straightening of the normal lordosis. No evidence of traumatic subluxation. C1-C2 AND CRANIOCERVICAL JUNCTION: -Intact and normally aligned. VERTEBRAL BODIES AND FACETS: -No fracture, compression deformity, or suspicious bone lesion. -Normal facet alignment without subluxation. -There are bulky vertebral and disc osteophytes ventrally spanning C4-C7, findings suggestive of DISH. DISCS: -Mild to moderate disc degeneration C4-5, C5-6, and C6-7. -Mild disc degeneration C2-3. CENTRAL CANAL: -No evidence of high-grade central canal narrowing or large disc herniation allowing for modality limitations. PREVERTEBRAL AND PARAVERTEBRAL SOFT TISSUES: -No prevertebral or paravertebral soft tissue edema or abnormal fluid collection. -Normal-appearing thyroid. -No mass or abnormal lymph nodes. LUNG APICES: -Clear bilaterally. CT/CT cervical spine wo IV con IMPRESSION: 1. No CT evidence of acute cervical spine fracture or injury. 2. Mild to moderate cervical spondylosis. Findings suggesting underlying DISH as detailed. Electronically signed by: Oleg Herbert MD 05/12/2025 10:07 AM EDT Prescriptions: New amoxicillin-pot clavulanate 875-125 mg tablet 1 tab PO Q12H 10 Days Qty: 20 0RF naproxen 500 mg tablet 500 mg PO BID PRN (Reason: pain) Qty: 14 0RF No Action hydrochlorothiazide 25 mg tablet 25 mg PO DAILY lisinopril 40 mg tablet 40 mg PO DAILY methadone [Methadose] 10 mg/mL Concentrate 65 mg PO DAILY hydralazine 10 mg Tablet 10 mg PO TID Qty: 270 0RF Protocol: Hold for SBP< HOLD for SBP < : 90 amlodipine 10 mg Tablet 10 mg PO DAILY Qty: 90 0RF Protocol: Hold for SBP< HOLD for SBP < : 90 Referrals: [facility] [Provider Group, Ear, Nose, Throat] - 3 days Referral Note: Nasal fracture Clinical Impression: Fracture, nasal [facility] [Primary Care Provider, Medical] - 2 days Referral Note: Hypertension, nasal fracture Clinical Impression: Fracture, nasal; Hypertension Stand Alone Forms: Work/School Release Interventions: ED Discharge Assessment Last Done: 05/12/25 13:20 Discharge Date/Time: 05/12/25 13:22 Print Language: Belizean
--- OUTSIDE RECORDS SUMMARY | 2025-05-12 07:25 | XMS_ITS | Patient Health Record ---
Author Organization [facility] Address [address] [place] [address] Care Team Providers Care Marketing Project Specialist Name Role Phone Payam Shine Jr Reason For Referral No Information Plan Of Treatment No Information
--- OUTSIDE RECORDS SUMMARY | 2025-05-12 07:25 | XMS_ITS | Clinical Summary ---
Author Organization [employer] Address [address] [place] [address] Care Team Providers Care Energy Manager Name Role Phone Unavailable Primary Care Provider Unavailabl e Encounters Date Type Department Care Team Description 03/28/2025 Telephone [facility] [address] [place] [phone] Jose Faria MD Lab Orders (Requesting T-Spot Order) 02/24/2025 Telephone [facility] [address] [place] [phone] Jose Faria MD new pt (Pt requesting new pt appt ) 02/19/[address] [address] Luc Gonzalez MD New pt appt from [...] Upcoming Encounters Date Type Department Care Team ([facility] st Contact Info) Description 06/18/2025 9:00 AM EDT Office Visit [facility] [address] [place] [phone] Jose Faria MD [address] [place] [phone] Health Maintenance Due Date Last Done Comments [...] COVID-19 Vaccine (1 - 2023-2 5 season) 2025 Influenza Vaccine (#1) 2025 0, 05/27/2017 DTaP/Tdap/Td [...] on patient's age to complete this topic Procedures Procedure Name Priority Date/Time Associated Diagnosis Comments T-SPOT(R).TB Routine 03/28/2025 12:25 PM EDT Screening-pulmonary TB from Last 3 Months Results * T-SPOT??.TB (03/28/2025 12:25 PM EDT) [facility] T Spot TB Negative Negative [facility] Comment:A negative test resu lt does not exclude the possibilityof exposure to or infection with Mycobacteriumtuberculosis (M. tuberculosis). Patients with recentexposure to TB infected individuals exhibiting anegative T-SPOT.TB result should be considered forretesting within 6 weeks or if other relevant clinicalsymptoms indicate. Results from T-SPOT.TB testing mustbe used in conjunction with each individual'sepidemiological history, current medical status,and results of other diagnostic evaluations.The T-SPOT.TB test is qualitative and results arereported as positive, borderline, or negative, giventhat the test controls perform as expected. In linewith the Centers for Disease Control and Prevention's2010 recommendation to report quantitative measurementsalongside the qualitative result, the laboratoryprovides spot counts for informational purposes only.The T-SPOT.TB test should not be interpreted as aquantitative test. TS PANEL A 0 [facility] TS PANEL B 0 [facility] Negative Control Passed [facility] Positive Control Passed [facility] Comment:For additional infor mation, please refer tohttp://education.Pixalate/faq/ZZI928(This link is being provided for informational/educational purposes only.)THIS TEST WAS PERFORMED AT:[employer] [id number] [place] [address]KZEKVHTBRODERICK SCHWAB MD,PHD 03/28/2025 12:2 5 PM EDT 03/28/2025 1:19 PM EDT us Jose Faria MD LAB BLOOD ORDERABLES Final Resul t [facility] [address] [place] [address] [phone] from Last 3 Months Insurance [employer] < 65 [place] [id number]
--- OUTSIDE RECORDS SUMMARY | 2025-05-12 07:25 | XMS_ITS | Clinical Summary ---
Author Organization [facility] Address [address] [place] [address] Care Team Providers Care Data Warehouse Manager Name Role Phone Mya Stauffer PA-C Primary [...] to prevent falls. 1 Each [address] Active [address] tabletIndications :Intermittent chest pain TOME 1 TABLETA POR VIA ORAL TODOS [place]. 90 Tablet 3 5 Active lisinopriL 40 mg tabletIndications :Essential hypertension Take 1 Tablet by mouth once daily. 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 [...] Pruritic rash 05/19/2017 09/24/2019 Overview (05/19/2017): 05/13/17 [facility] [place]. Given Benadryl Encounters Date Type Department Care Team Description 03/24/2025 Results Follow-Up [address] [address] Yoel Fitch NP 03/21/2025 10:40 AM EDT Office Visit [address] [address] Yoel Fitch NP Zayas, Juan from Last 3 Months Immunizations Immunization Administration Dates Next Due Flu, Preservative Free 10/22/2019 INFLUENZA, SEASONAL, INJECTABLE 05/27/2017 PNEUMOCOCCAL CONJUGATE PCV 20 (Prevnar 20) 03/21 PNEUMOCOCCAL POLYSACCHARIDE PPV23 (Pneumovax 23) 01/20/2017 TDAP 03/21/2025 ZOSTER VACCINE, RECOMBINANT ([facility]ING[facility]X) 5,06/16/2020 Social History Tobacco Use Types Packs/Day Years Used Date Smoking Tobacco: Every Day Cigarettes 0.5 45 Smokeless Tobacco: Never Tobacco Cessation:Ready to Q uit: No; Counseling Given: Yes Comments:Started smoking age 18 Alcohol Use Standard [...] Sign Reading Time Taken Comments Blood Pressure 144/68 03/21/2025 11:01 AM EDT Pulse 72 03/21/2025 11:01 AM EDT Temperature 36.7 C (98.1 F) 03/21/2025 11:01 AM EDT Respiratory Rate 18 03/21/2025 11:0 1 AM EDT Oxygen Saturation 95% 03/21/2025 11: 01 AM EDT Inhaled Oxygen Concentration - - Weight 96.1 kg (211 lb 12.8 oz) 025 11:01 AM EDT Height 172.7 cm (5' 8 ) 03/21/2025 11:0 1 AM EDT Body Mass Index 32.2 03/21/2025 11:01 AM EDT Plan of Treatment Health Maintenance Due Date Last Done Comments Anxiety Screening 1960 Medicare Annual Wellness Visit 01/14/1978 CT Colonography 01/14/2005 Colonoscopy 01/14/2005 Colorectal Cancer Screening 01/14/2005 FIT/gFOBT 01/14/2005 Fecal DNA 01/14/2005 Flexible Sigmoidoscopy 01/14/2005 Lung Cancer Screening 01/14/2010 Imm-Hepatitis B (1 of 3 - Ri sk 3-dose series) 2020 Abdominal Aortic Aneurysm Screening 01/14/2025 Falls Prevention 01/14/2025 [id number] ( season) 2025 Imm-Influenza (#1) 2025 10/22/2019, 05/27/2017 Depression Monitoring 06/21/2025 03/21/2025 , 08/31/2023, 04/26/2023, Additional history exists Diabetes Screening 03/21/2026 03/21/2025, 0 03/21/2025, 04/26/2023, Additional history exists Lipid Screening 03/21/2026 03/21/2025, 09/01/2023, 09/09/2021, Additional history exists Tobacco Cessation Counseling (#1) 03/21/2026 03/21/2025, 08/31/2023, 04/26/2023, Additional history exists Imm-DTaP/Tdap/Td (2 - Td or Tdap) 03/21/2035 025 HIV Screening Completed 09/09/2021 Alcohol and Drug Screen Completed 03/21/20, 04/26/2023, 09/22/2020, Additional history exists Imm-Pneumococcal 50+ Completed 03/21/2025, 01/21/20 Imm-Zoster, Recombinant Completed 03/21/2025, 06/16 Procedures Procedure Name Priority Date/Time Associated Diagnosis Comments TSH W/RFLX FREE T4 Routine 03/21/2025 11 :40 AM EDT Screening for heart disease Weakness LIPID PANEL Routine 03/21/2025 11:40 AM EDT Screening for heart disease HEMOGLOBIN GLYCOSYLATED A1C Routine 03/21/2025 11:40 AM EDT Diabetes mellitus screening COMPREHENSIVE METABOLIC PANEL Routine 03/21/2025 11:40 AM EDT Screening for heart disease BLOOD COUNT COMPLETE AUTO&AUTO DIFRNTL WBC Routine 03/21/2025 11:40 AM EDT Screening for heart disease IMAGING SCANNED DOCUMENT 02/13/2025 3:00 AM EDT IMAGING SCANNED DOCUMENT 02/13/2025 3:00 AM EDT HIV 1/2 AG & AB W/RFLX (4TH GEN) Routine 09/09/2021 8:50 AM EST Screening for HIV (human immunodeficiency virus) from Last 3 Months or Most Recently Relevant to Health Maintenance Results * TSH W/RFLX FREE T4 Routine (03/21/2025 11:40 AM EDT) Pathologist [facility] TSH W/REFLEX TO FT4 3.71 0.40 - 4.50 mIU/L 03/22/2025 5:22 AM EDT [facility] Blood Blood / Unknown 03/21/2025 1 1:40 AM EDT 03/22/2025 3:25 AM EDT Narrative [facility] - 03/22/2025 5:36 AM EDT FASTING:YES Yoel Fitch NP LAB - BLOOD DRAW Final Result [facility] [address] [place] [id number], [facility] [address] [place] [phone] * (ABNORMAL) BLOOD COUNT COMPLETE AUTO&AUTO DIFRNTL WBC Routine (03/21/2025 11:40 AM EDT) [facility] WHITE BLOOD CELL COUNT 11.2(H) 3.8 - 10.8 Thousand/ uL 03/22/2025 2:30 AM EDT [facility] RED BLOOD CELL COUNT 4.38 4.20 - 5.80 Million/u L 03/22/2025 2:30 AM EDT [facility] HEMOGLOBIN 13.6 13.2 - 17.1 g/dL 03/22/2025 2:30 AM EDT [facility] HEMATOCRIT 41.9 38.5 - 50.0 % 03/22/2025 2:30 AM EDT [facility] MCV 95.7 80.0 - 100.0 fL 03/22/2025 2:30 AM EDT [facility] MCH 31.1 27.0 - 33.0 pg 03/22/2025 2:30 AM EDT [facility] MCHC 32.5 32.0 - 36.0 g/dL 03/22/2025 2:30 AM EDT [facility] RDW 11.0 11.0 - 15.0 % 03/22/2025 2:30 AM EDT [facility] PLATELET COUNT 333 140 - 400 Thousand/ uL 03/22/2025 2:30 AM EDT [facility] MPV 10.4 7.5 - 12.5 fL 03/22/2025 2:30 AM EDT [facility] ABSOLUTE NEUTROPHILS 7,056 1,500 - 7,800 cells/uL 03/22/2025 2:30 AM EDT [facility] ABSOLUTE LYMPHOCYTES 2,946 850 - 3,900 cells/uL 03/22/2025 2:30 AM EDT [facility] ABSOLUTE MONOCYTES 941 200 - 950 cells/uL 03/22/2025 2:30 AM EDT [facility] ABSOLUTE EOSINOPHILS 190 15 - 500 cells/uL 03/22/2025 2:30 AM EDT [facility] ABSOLUTE BASOPHILS 67 0 - 200 cells/uL 03/22/2025 2:30 AM EDT [facility] NEUTROPHILS PCT 63 % 2:30 AM EDT [facility] LYMPHOCYTES 26.3 % 03/22/2025 2:30 AM EDT [facility] MONOCYTES 8.4 % 03/22/2025 2:30 AM EDT [facility] EOSINOPHILS 1.7 % 03/22/2025 2:30 AM EDT [facility] BASOPHILS 0.6 % 03/22/2025 2:30 AM [employer] [facility] Blood Blood / Unknown 03/21/2025 1 1:40 AM EDT 03/22/2025 1:48 AM EDT Narrative [facility] - 03/22/2025 2:46 AM EDT FASTING:YES For adults, a slight decrease in the calculated MCHC value (in the range of 30 to 32 g/dL) is most likely not clinically significant; however, it should be interpreted with caution in correlation with other red cell parameters and the patient's clinical condition. us Yoel Fitch NP LAB - BLOOD DRAW Final Result [facility] [address] [address], [facility] [address] [place] [address] * HEMOGLOBIN GLYCOSYLATED A1C Routine (03/21/2025 11:40 AM EDT) Pathologist [facility] HEMOGLOBIN A1C 4.9 <5.7 % 03/22/2025 3:05 AM EDT [facility] Blood Blood / Unknown 03/21/2025 1 1:40 AM EDT 03/22/2025 1:48 AM EDT Narrative [facility] - 03/22/2025 3:21 AM EDT FASTING:YES For the purpose of screening for the presence of diabetes: . <5.7% Consistent with the absence of diabetes 5.7-6.4% Consistent with increased risk for diabetes (prediabetes) > or =6.5% Consistent with diabetes . This assay result is consistent with a decreased risk of diabetes. . Currently, no consensus exists regarding use of hemoglobin A1c for diagnosis of diabetes in children. . According to [place] Diabetes Association (ADA) guidelines, hemoglobin A1c <7.0% represents optimal control in non- diabetic patients. Different metrics may apply to specific patient populations. Standards of Medical Care in Diabetes(ADA). . us Yoel Fitch NP LAB - BLOOD DRAW Final Result [facility] [address] [address], [email or web address] [address] [address] * LIPID PANEL Routine (03/21/2025 11:40 AM EDT) CHOLESTEROL, TOTAL 189 <200 mg/dL 03/22/2025 5:38 AM EDT [facility] HDL CHOLESTEROL 94 > OR = 40 mg/dL 03/22/2025 5:38 AM EDT [facility] TRIGLYCERIDES 66 <150 mg/dL 03/22/2025 5:38 AM EDT [facility] LDL-CHOLESTEROL 80 mg/dL (calc) 03/22/2025 5:38 AM EDT [facility] CHOL/HDLC RATIO 2.0 <5.0 (calc) 03/22/2025 5:38 AM EDT [facility] NON-HDL CHOLESTEROL 95 <130 mg/dL (calc) 03/22/2025 5:38 AM EDT [facility] Blood Blood / Unknown 03/21/2025 1 1:40 AM EDT 03/22/2025 3:25 AM EDT Narrative [facility] - 03/22/2025 5:49 AM EDT FASTING:YES Reference range: <100 . Desirable range <100 mg/dL for primary prevention; <70 mg/dL for patients with CHD or diabetic patients with > or = 2 CHD risk factors. . LDL-C is now calculated using the Michael calculation, which is a validated novel method providing better accuracy than the Friedewald equation in the estimation of LDL-C. Don CASTANEDA et al. BRITTNEY. 2013;310(19): 6195-1421 (http://education.[employer]/faq/KKT111) For patients with diabetes plus 1 major ASCVD risk factor, treating to a non-HDL-C goal of <100 mg/dL (LDL-C of <70 mg/dL) is considered a therapeutic option. Yoel Fitch NP LAB - BLOOD DRAW Final Result [facility] [address] [address], [facility] [address] [address] * (ABNORMAL) COMPREHENSIVE METABOLIC PANEL Routine (03/21/2025 11:40 AM EDT) GLUCOSE 108(H) 65 - 99 mg/dL 03/22/2025 5:38 AM EDT [facility] UREA NITROGEN (BUN) 13 7 - 25 mg/dL 03/22/2025 5:38 AM EDT [facility] CREATININE (blood) 0.80 0.70 - 1.35 mg/dL 03/22/2025 5:38 AM EDT [facility] EGFR 98 > OR = 60 mL/min/1. 73m2 03/22/2025 5:38 AM EDT [facility] BUN/CREATININE RATIO SEE NOTE: 6 - 22 (calc) 03/22/2025 5:38 AM [employer] [facility] SODIUM 136 135 - 146 mmol/L 03/22/2025 5:38 AM [employer] [facility] POTASSIUM 5.0 3.5 - 5.3 mmol/L 03/22/2025 5:38 AM [employer] [facility] CHLORIDE 97(L) 98 - 110 mmol/L 03/22/2025 5:38 AM [employer] [facility] CARBON DIOXIDE 31 20 - 32 mmol/L 03/22/2025 5:38 AM [employer] [facility] CALCIUM 9.5 8.6 - 10.3 mg/dL 03/22/2025 5:38 AM [employer] [facility] PROTEIN, TOTAL 8.6(H) 6.1 - 8.1 g/dL 03/22/2025 5:38 AM [employer] [facility] ALBUMIN 4.5 3.6 - 5.1 g/dL 03/22/2025 5:38 AM [employer] [facility] GLOBULIN 4.1(H) 1.9 - 3.7 g/dL (calc) 03/22/2025 5:38 AM [employer] [facility] ALBUMIN/GLOBULI N RATIO 1.1 1.0 - 2.5 (calc) 03/22/2025 5:38 AM [employer] [facility] BILIRUBIN, TOTAL 0.6 0.2 - 1.2 mg/dL 03/22/2025 5:38 AM [employer] [facility] ALKALINE PHOSPHATASE 106 35 - 144 U/L 03/22/2025 5:38 AM [employer] [facility] AST 35 10 - 35 U/L 03/22/2025 5:38 AM [employer] [facility] ALT 31 9 - 46 U/L 03/22/2025 5:38 AM [employer] [facility] Blood Blood / Unknown 03/21/2025 1 1:40 AM EDT 03/22/2025 3:25 AM EDT Narrative [facility] - 03/22/2025 5:49 AM EDT FASTING:YES . Fasting reference interval . For someone without known diabetes, a glucose value between 100 and 125 mg/dL is consistent with prediabetes and should be confirmed with a follow-up test. . Not Reported: BUN and Creatinine are within reference range. . Edwarkaren Chidiyunior RN SOCIAL WORK LAB - BLOOD DRAW Final Result [facility] [address] [address], [facility] [address] [place] [address] * IMAGING SCANNED DOCUMENT (02/13/2025 3:00 AM EDT) Only the most recent of2 resultswithin the time period is included. 02/13/2025 3:00 AM EDT Mya Stauffer PA-C [facility] Final Resul t * HIV 1/2 AG & AB W/RFLX (4TH GEN) (09/09/2021 8:50 AM EST) HIV AG/AB, 4TH GEN NON-REAC TIVE NON-REAC TIVE [facility] Comment: HIV-1 antigen and HIV-1/HIV-2 antibodies were [...] purpose. For additional information please refer to http://education.[employer]/faq/PNU786 (This link is being provided for informational/ educational purposes only.) The performance of this assay has not been clinically validated in patients less than 2 years old. Blood Blood / Unknown 09/09/2021 8 :50 AM EST 09/09/2021 8:51 AM EST Narrative [facility] - 09/09/2021 6:40 PM EST FASTING:YES Kari KUOP LAB - BLOOD DRAW Final Re sult [facility] [address] [facility] [address] [place] [address], [facility] [address] [address] from Last 3 Months or Most Recently Relevant to Health Maintenance Insurance [facility] [place] [facility] Care Teams Data Warehouse Manager Relationship Specialty Start Date End Date Mya Stauffer PA-C [facility] [place] [address] PCP - General Primary Care 02/19/24
[2025-05-12 07:32] LABS: Hematocrit 40.8 % (42.0-52.0); Hemoglobin 13.4 g/dl (14.0-18.0); Imm Gran Abs Auto 0.05 X10*3/uL (0.00-0.03); Imm Gran Pct Auto 0.6 % (0.0-0.4); Lymphocytes Absolute Auto 1.7 X10*3/uL (1.2-4.9); Mean Corpuscular HGB Conc 32.8 g/dl (31.0-36.0); Mean Corpuscular Hemoglobin 31.2 pg (27.0-33.0); Mean Corpuscular Volume 94.9 fL (80.0-98.0); NRBC Abs Auto 0.000 X10*3/uL (0.0-0.012); NRBC Pct Auto 0.0 /100WBC (0.0-0.2); Platelet Count 251 X10*3/uL (160-400); Red Blood Count 4.30 X10*6/uL (4.60-5.80); White Blood Count 9.1 X10*3/uL (4.8-10.8)
[2025-05-12 07:37] LABS: Alanine Aminotransferase 45 U/L (0-40); Albumin Level 4.0 g/dL (3.5-5.0); Alkaline Phosphatase 109 U/L (39-117); Anion Gap 9 (12-20); Aspartate Amino Transferase 49 U/L (5-37); Blood Urea Nitrogen 15 mg/dL (9-16); Calcium 9.0 mg/dL (8.4-10.2); Carbon Dioxide 32 mmol/L (22-29); Chloride 102 mmol/L (96-108); Creatinine Clr Calc Pharmacy 112.5; Estimated Glomerular Filt Rate > 60; Potassium 4.1 mmol/L (3.3-5.1); Sodium 139 mmol/L (135-145); Total Protein 7.8 g/dL (6.5-8.0)
[2025-05-12 07:42] LABS: Troponin-I High Sensitivity 6.0 ng/L (<3.5-35.0)
[2025-05-12 08:42] LABS: INTERNATIONAL NORM RATIO 0.9 (0.9-1.1); Prothrombin Time 10.8 SEC (10.9-12.4)
[2025-05-12 08:44] LABS: Partial Thromboplastin Time 27.8 SEC (26.7-34.1)
--- NOTE | 2025-05-12 09:16 | PC.NURSE ---
Labetolol IVP held d/t pt HR high 40s-50s. BROCK Galvan aware- plan for IVP Hydralazine instead. Vitals updated in worklist- BPs continue to be 190s/80s, cycling q15 to monitor.
--- NOTE | 2025-05-12 09:44 | PC.NURSE ---
IVP Hydralazine given, vitals updated in worklist. BP cycling q10 min to monitor for decrease in BP. Pt resting comfortably on stretcher, sinus coleen on quality assurance monitor body, HR 40s-50s, asymptomatic. Denies CP/dizziness/lightheadedness. Vitals updated in worklist. Call campos within reach, all needs met at this time.
[2025-05-12 09:48] LABS: Troponin-I High Sensitivity 5.9 ng/L (<3.5-35.0)
--- NOTE | 2025-05-12 13:22 | PC.NURSE ---
BROCK gillette with BP on d/c
== END 2025-05-12 13:22 | disposition home or self-care (01) ==
PROVIDERS: Physician Assistant; Emergency Provider Emergency Medicine
DX: S02.2XXA Fracture of nasal bones, initial encounter for closed fracture (principal); I10 Essential (primary) hypertension; W19.XXXA Unspecified fall, initial encounter; Y93.9 Activity, unspecified; Y92.9 Unspecified place or not applicable; Y99.9 Unspecified external cause status
CPT/HCPCS: 36415; 70450; 70486; 72125; 80053; 84484; 85025; 85610; 85730; 93005; 96374; 96376; 99284; 99285; J0360

== ENCOUNTER → 2025-05-12 07:04 | Outpatient (BNV) | payer OTHER, SELFPAY | PROVIDERS: Emergency Provider Emergency Medicine; Visit Provider Internal Medicine Cardiovascular Disease | DX: R00.1 Bradycardia, unspecified (principal) | CPT/HCPCS: 93010 ==

== ENCOUNTER → 2025-05-12 07:28 | Outpatient (BNV) | payer OTHER, SELFPAY | PROVIDERS: Emergency Provider Emergency Medicine; Visit Provider Radiology Diagnostic Radiology | DX: M47.812 Spondylosis without myelopathy or radiculopathy, cervical region (principal); S02.2XXA Fracture of nasal bones, initial encounter for closed fracture; I67.82 Cerebral ischemia | CPT/HCPCS: 70450; 70486; 72125 ==

== ENCOUNTER 2025-06-25 08:00 | Outpatient (REF) | payer OTHER, SELFPAY ==
--- OUTSIDE RECORDS SUMMARY | 2025-06-25 08:05 | XMS_ITS | Clinical Summary ---
Author Organization [employer] Address [address] [facility] [facility] [address] [place] [address] Care Team Providers Care Manager Of Warehouse Name Role Phone Name, Jose ATKINSON Primary Care Provider [phone] Allergies Active Allergy Reactions Criticality Noted Date Comments Metoprolol Rash Low 05/04/2017 Medications * This document contains information received from the source organization and may not represent a complete record from that organization. lisinopril 40 MG tabletIndication s:Essential hypertension Take 1 tablet (40 mg) by mouth Once per day. 30 tablet 11 06/18/20 25 026 Active hydroCHLOROthiaz triston (HYDRODiuril) 25 MG tabletIndication s:Essential hypertension Take 1 tablet (25 mg) by mouth Once per day. 30 tablet 11 06/18/20 25 026 Active amLODIPine (Norvasc) 10 MG tabletIndication s:Essential hypertension Take 1 tablet (10 mg) by mouth Once per day. 30 tablet 11 06/18/20 25 026 Active amLODIPine (Norvasc) 10 MG tablet 10 mg. 03/10/20 25 025 Discontinued(Re order (will not trigger notification to Pharmacy)) lisinopril 40 MG tablet TOME 1 TABLETA POR V A ORAL TODOS LOS D 025 Discontinued(Re order (will not trigger notification to Pharmacy)) hydroCHLOROthiaz triston (HYDRODiuril) 25 MG tablet 25 mg. 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 [...] Problem Noted Date Diagnosed Date Resolved Date Atypical chest pain 01/05/2018 06/18/20 25 Overview (06/17/2025): Ad[place] [facility] [place]02[place]18-01/03/18 for CP. ACS r/o. PE unlikely, f/u with PCP 05/17/18 Eval at Cardiology. Atypical CP c/w chostochondritis. Will get stress test d/t multiple CAD risk factors. 06/13/18- stress test negative. Follow up with PCP to get better control of BP. 09/22/[address] Castrejon. Recommends repeat stress test Encounters * This document contains information received from the source organization and may not represent a complete record from that organization. Date Type Department Care Team Description 06/18/2025 9:00 AM EDT Office Visit [facility] [address] [place] [phone] Name, MD Jose Essential hypertension (Primary Dx); Bipolar affective disorder, currently depressed, moderate (CMS/HCC) (HCC); Methadone dependence (CMS/HCC) (HCC); Hepatitis C virus infection without hepatic coma, unspecified chronicity; Tobacco use disorder; Vaccine refused by patient 06/18/2025 Travel 06/17/2025 Telephone [facility] [address] [place] [address] [place] [phone] Jose Faria MD Chart Prep 06/11/2025 Patient Outreach [facility] [address] [place] [address] Jose Faria MD Pre-visit Planning (IDOH unable to reach LVM ) 05/12/2025 Orders Only GENERIC EXTERNAL DATA DEPARTMENT Provider, Generic External Data 03/28/2025 Telephone [facility] [address] [place] [address] Jose Faria MD Lab Orders (Requesting T-Spot Order) from Last 3 Months Immunizations Immunization Administration Dates Next Due Influenza injectable quadrivalent preservative f ree 10/22/2019 Influenza, IIV3, injectable 05/27/2017 Pneumococcal Conjugate PCV 20 03/21/2025 Pneumococcal Polysaccharide PPSV23 01/20/2017 Tdap 03/21/2025 Zoster, Recombinant 03/21/2025,06/16/2020 Family History Medical History Relation Name Comments No Known Problems Brother No Known Problems Daughter Dementia Father No Known Problems Sister Relation Name Status Comments Brother Daughter Father Alive Mother Alive Sister Social History Tobacco Use Types Packs/Day Years Used Date Smoking Tobacco: Every Day Cigarettes Smokeless Tobacco: Never Tobacco Cessation:Ready to Q uit: Not Asked; Counseling Given: Not Answered Alcohol Use Standard Drinks/Week Comments Never 0 (1 standard drink = 0.6 oz pur e alcohol) Depression Answer Date Recorded Patient Health Questionnaire-9 Score 1 06/18/2025 Patient Health Questionnaire-9 Score 1 06/18/2025 Last PHQ-9: Questionnaire Data Not on file 1 Housing Stability Answer Date Recorded What is your housing situation today? I have rhondajulián jackson 06/18/[address] you li ve. Do you have problems with any of the following? None of the above 06/18/2025 Food Insecurity Answer Date Recorded Within the past 12 months, y ou worried that your food would run out before you got money to buy more: Never True 06/18/2025 Within the past 12 months,th e food you bought just didn't last and you didn't have enough money to get more: Never True Transportation Answer Date Recorded In the past 12 months, has l ack of transportation kept you from medical appts, meetings, work or from getting things needed for daily living? No 06/18/2025 Utilities Answer Date Recorded In the past 12 months, has t he electric, gas, oil or water company threatened to shut off services in your home? No 06/18/2025 Depression Answer Date Recorded Patient Health Questionnaire-2 Score 0 06/18/2025 Internet Access Answer Date Recorded Internet Access Q1 Yes 06/18/2025 Internet Access Q2 Not on file 06/18/2025 Sex and Gender Information Value Date Recorded Sex Assigned at Male 06/20/2022 10:16 AM EDT Legal Sex Male 10:16 AM EDT Gender Identity Male 06/17/2025 8:29 AM EDT Sexual Orientation Straight 06/17/2025 8: 29 AM EDT Last Filed Vital Signs Vital Sign Reading Time Taken Comments Blood Pressure 190/82 06/18/2025 9:11 AM EDT Pulse 81 06/18/2025 9:11 AM EDT Temperature - - Respiratory Rate 18 06/18/2025 9:11 AM EDT Oxygen Saturation 95% 06/18/2025 9:11 AM EDT Inhaled Oxygen Concentration - - Weight 99 kg (218 lb 3.2 oz) 06/18/2025 9:11 AM EDT Height 175.3 cm (5' 9 ) 06/18/2025 9:11 AM EDT Body Mass Index 32.22 06/18/2025 9:11 AM EDT Plan of Treatment Upcoming Encounters Date Type Department Care Team (Late st Contact Info) Description 06/25/2025 9:30 AM EST Clinical Support [facility] [address] [place] [phone] Health Maintenance Due Date Last Done Comments CT Colonography 1960 Colonoscopy 1960 Colorectal Cancer Screening 1960 FIT DNA/Cologuard 1960 FIT 1960 FOBT 1960 Lipid Panel 1960 Sigmoidoscopy 1960 Hepatitis A Vaccines (1 of 2 - Risk 2-dose series) 01/14/1979 Hepatitis B Vaccines (3 of 3 - Risk 3-dose series) 10/30/2002 07/24/2002, 05/02/2002 RSV Patients and Patients Aged 60 years or older (1 - Risk 60-74 years 1-dose series) 2020 COVID-19 Vaccine (4 - season) 2025 07/13/2021, 12/29/2020, 12/01/2020 Influenza Vaccine (#1) 2025 0, 05/27/2017, 05/31/2013, Additional history exists Alcohol/Substance Use Screening 06/18/2026 06/18/2025 Depression Screening 06/18/2026 06/18/2025, 06/18/20 25 SDOH Screening 06/18/2026 06/18/2025 Tobacco Screening 06/18/2026 06/18/2025 DTaP/Tdap/Td Vaccines (3 - Td or Tdap) 03/21/2035 03/21/2025, 09/27/2013 Pneumococcal Vaccine: 50+ Years Completed 03/21/2025, 01/20/2017, 10/03/2002 Zoster Vaccines Completed 03/21/2025, 06/16/2020 HIB Vaccines [...] Procedure Name Priority Date/Time Associated Diagnosis Comments ECG 12-LEAD Routine 06/18/2025 11:34 AM EDT Essential hypertension CT CERVICAL SPINE WO CONTRAST Routine 05/12/2025 9:[address] HEAD WO CONTRAST Routine 05/12/2025 9 :33 AM EDT HIGH SENSITIVITY TROPONIN I Routine 05/12/2025 9:[address] SINUS FACIAL BONES WO CONTRAST Routine 05/12/2025 8:48 AM EDT APTT Routine 05/12/2025 8:29 AM EDT PROTHROMBIN TIME-INR Routine 05/12/2025 8:29 AM EDT HIGH SENSITIVITY TROPONIN I Routine 05/12/2025 7:18 AM EDT COMPREHENSIVE METABOLIC PANEL Routine 05/12/2025 7:18 AM EDT CBC WITH AUTO DIFFERENTIAL Routine 05/12/2025 7:18 AM EDT T-SPOT(R).TB Routine 03/28/2025 12:25 PM EDT Screening-pulmonary TB from Last 3 Months Results * ECG 12 lead (06/18/2025 11:34 AM EDT) Narrative Name, MD Jose - 06/18/2025 11:34 AM EDT Poor baseline due to artifact, sinus coleen at 54, LAFB, I did not see significant ST segment elevation or depression. No old EKG to compare us Jose Name ECG ORDERABLES Final Result * CT Cervical Spine w/o Contrast (05/12/2025 9:33 AM EDT) Anatomical Region Laterality Modality Spine, C-spine Computed Tomogra phy 05/12/2025 9:33 AM EDT Narrative 05/12/2025 10:09 AM EDT [address] [address] [address] Scan Report Signed Patient: Golden Hedrick MR#: [id number] : 1960 Acct:[id number] Age/Sex: 65 / M ADM Date: 05/12/25 Loc: .ED Attending Dr: Ordering Physician: Cole Mondragon Date of Service: 05/12/25 Procedure(s): CT cervical spine wo IV con Accession Number(s): [id number] cc: Cole Mondragon; [facility] Report Number: [id number]: Total DLP = 1237.26 mGy-cm Reason for Exam: fall EXAMINATION: CT CERVICAL SPINE WITHOUT CONTRAST CLINICAL INFORMATION: Fall, neck pain COMPARISON: None available. TECHNIQUE: Spiral CT imaging of the cervical spine performed in axial plane without contrast. Multiplanar reformatted images were constructed from the axial data set. This CT examination was performed using dose optimization techniques as appropriate, variously including the following: *Automated exposure control *Adjustment of mA and/or kV according to patient size (this includes techniques or standardized protocols for targeted exams where dose is matched to indication/reason for exam; i.e. extremities or head) *Use of iterative reconstruction technique FINDINGS: CORONAL ALIGNMENT: -Normal. SAGITTAL ALIGNMENT: -Minimal straightening of the normal lordosis. No evidence of traumatic subluxation. C1-C2 AND CRANIOCERVICAL JUNCTION: -Intact and normally aligned. VERTEBRAL BODIES AND FACETS: -No fracture, compression deformity, or suspicious bone lesion. -Normal facet alignment without subluxation. -There are bulky vertebral and disc osteophytes ventrally spanning C4-C7, findings suggestive of DISH. DISCS: -Mild to moderate disc degeneration C4-5, C5-6, and C6-7. -Mild disc degeneration C2-3. CENTRAL CANAL: -No evidence of high-grade central canal narrowing or large disc herniation allowing for modality limitations. PREVERTEBRAL AND PARAVERTEBRAL SOFT TISSUES: -No prevertebral or paravertebral soft tissue edema or abnormal fluid collection. -Normal-appearing thyroid. -No mass or abnormal lymph nodes. LUNG APICES: -Clear bilaterally. CT/CT cervical spine wo IV con IMPRESSION: 1. No CT evidence of acute cervical spine fracture or injury. 2. Mild to moderate cervical spondylosis. Findings suggesting underlying DISH as detailed. Electronically signed by: Oleg Herbert MD 05/12/2025 10:07 AM EDT Dictated By: Oleg Herbert MD Signed By: <Electronically signed by Oleg Herbert MD in OV> 05/12/25 1007 DD/ 0933 TD/TT: 05/12/25 0956 Scientific Informatics Analyst: Procedure Note Donotuseinterpreter, Image - 05/12/[address] [address] [address] Scan Report Signed Patient: Golden Hedrick RMR#: [id number] : 1960Acct:[id number] Age/Sex: 65 / MADM Date: 05/12/25 Loc: HO.ED Attending Dr: Ordering Physician: Cole Mondragon Date of Service: 05/12/25 Procedure(s): CT cervical spine wo IV con Accession Number(s): [id number] cc: Cole Mondragon; [facility] Report Number: [id number]: Total DLP = 1237.26 mGy-cm Reason for Exam: fall EXAMINATION: CT CERVICAL SPINE WITHOUT CONTRAST CLINICAL INFORMATION: Fall, neck pain COMPARISON: None available. TECHNIQUE: Spiral CT imaging of the cervical spine performed in axial plane without contrast. Multiplanar reformatted images were constructed from the axial data set. This CT examination was performed using dose optimization techniques as appropriate, variously including the following: *Automated exposure control *Adjustment of mA and/or kV according to patient size (this includes techniques or standardized protocols for targeted exams where dose is matched to indication/reason for exam; i.e. extremities or head) *Use of iterative reconstruction technique FINDINGS: CORONAL ALIGNMENT: -Normal. SAGITTAL ALIGNMENT: -Minimal straightening of the normal lordosis. No evidence of traumatic subluxation. C1-C2 AND CRANIOCERVICAL JUNCTION: -Intact and normally aligned. VERTEBRAL BODIES AND FACETS: -No fracture, compression deformity, or suspicious bone lesion. -Normal facet alignment without subluxation. -There are bulky vertebral and disc osteophytes ventrally spanning C4-C7, findings suggestive of DISH. DISCS: -Mild to moderate disc degeneration C4-5, C5-6, and C6-7. -Mild disc degeneration C2-3. CENTRAL CANAL: -No evidence of high-grade central canal narrowing or large disc herniation allowing for modality limitations. PREVERTEBRAL AND PARAVERTEBRAL SOFT TISSUES: -No prevertebral or paravertebral soft tissue edema or abnormal fluid collection. -Normal-appearing thyroid. -No mass or abnormal lymph nodes. LUNG APICES: -Clear bilaterally. CT/CT cervical spine wo IV con IMPRESSION: 1. No CT evidence of acute cervical spine fracture or injury. 2. Mild to moderate cervical spondylosis. Findings suggesting underlying DISH as detailed. Electronically signed by: Oleg Herbert MD 05/12/2025 10:07 AM EDT Dictated By: Oleg Herbert MD Signed By: <Electronically signed by Oleg Herbert MD in OV> 05/12/25 1007 DD/ TD/TT: 05/12/25 0956 Scientific Informatics Analyst: [facility] External Provider IMG CT PROCEDURES Edited Result - Final * CT Head w/o Contrast (05/12/2025 9:33 AM EDT) Anatomical Region Laterality Modality Head, Neck Computed Tomogra phy 05/12/2025 9:33 AM EDT Narrative 05/12/2025 10:05 AM EDT [place] [address] CT Scan Report Signed Patient: Golden Hedrick MR#: [id number] : 1960 Acct:[id number] Age/Sex: 65 / M ADM Date: 05/12/25 Loc: .ED Attending Dr: Ordering Physician: Cole Mondragon Date of Service: 05/12/25 Procedure(s): CT head/brain wo IV con Accession Number(s): [id number] cc: Cole Mondragon; [facility] Report Number: [id number]: Total DLP = 0.00 mGy-cm Reason for Exam: fall EXAMINATION: CT HEAD WITHOUT CONTRAST CLINICAL INFORMATION: Fall COMPARISON: CT facial bones earlier same day. 03/08/2025. TECHNIQUE: Contiguous axial imaging was performed from the skull base to vertex without intravenous administration of contrast. This CT examination was performed using dose optimization techniques as appropriate, variously including the following: *Automated exposure control *Adjustment of mA and/or kV according to patient size (this includes techniques or standardized protocols for targeted exams where dose is matched to indication/reason for exam; i.e. extremities or head) *Use of iterative reconstruction technique FINDINGS: There is no evidence of intracranial hemorrhage or extra-axial fluid collection. There is no mass effect, or edema. No CT evidence of acute territorial infarct. Ventricles, sulci, and cisterns are normal in size and configuration for patient age. No hydrocephalus. No midline shift. Negative hyperdense MCA sign. Negative insular ribbon sign. Patchy periventricular and deep white matter hypoattenuation is consistent with mild to moderate small vessel ischemic changes. Normal pituitary. Mild atheromatous calcification of the bilateral carotid siphons and V4 segments vertebral arteries bilaterally. Globes and orbital contents image normally. No extracranial soft tissue abnormalities. The paranasal sinuses, mastoid air cells, and tympanic cavities are normally aerated. No suspicious bony abnormalities. No calvarial or skull base fracture. Redemonstration of comminuted left nasal bone fractures. CT/CT head/brain wo IV con IMPRESSION: No acute intracranial abnormality. No calvarial or skull base fracture. Electronically signed by: Oleg Herbert MD 05/12/2025 10:02 AM EDT Dictated By: Oleg Herbert MD Signed By: <Electronically signed by Oleg Herbert MD in OV> 05/12/25 1002 DD/ 0933 TD/TT: 05/12/25 0956 Scientific Informatics Analyst: Procedure Note Donotuseinterpreter, Image - 05/12/[address] [place] [address] [address] Scan Report Signed Patient: Golden Hedrick R#: [id number] : 1960Acct:[id number] Age/Sex: 65 / MADM Date: 05/12/25 Loc: HO.ED Attending Dr: Ordering Physician: Cole Mondragon Date of Service: 05/12/25 Procedure(s): CT head/brain wo IV con Accession Number(s): [id number] cc: Cole Mondragon; [facility] Report Number: [id number]: Total DLP = 0.00 mGy-cm Reason for Exam: fall EXAMINATION: CT HEAD WITHOUT CONTRAST CLINICAL INFORMATION: Fall COMPARISON: CT facial bones earlier same day. 03/08/2025. TECHNIQUE: Contiguous axial imaging was performed from the skull base to vertex without intravenous administration of contrast. This CT examination was performed using dose optimization techniques as appropriate, variously including the following: *Automated exposure control *Adjustment of mA and/or kV according to patient size (this includes techniques or standardized protocols for targeted exams where dose is matched to indication/reason for exam; i.e. extremities or head) *Use of iterative reconstruction technique FINDINGS: There is no evidence of intracranial hemorrhage or extra-axial fluid collection. There is no mass effect, or edema. No CT evidence of acute territorial infarct. Ventricles, sulci, and cisterns are normal in size and configuration for patient age. No hydrocephalus. No midline shift. Negative hyperdense MCA sign. Negative insular ribbon sign. Patchy periventricular and deep white matter hypoattenuation is consistent with mild to moderate small vessel ischemic changes. Normal pituitary. Mild atheromatous calcification of the bilateral carotid siphons and V4 segments vertebral arteries bilaterally. Globes and orbital contents image normally. No extracranial soft tissue abnormalities. The paranasal sinuses, mastoid air cells, and tympanic cavities are normally aerated. No suspicious bony abnormalities. No calvarial or skull base fracture. Redemonstration of comminuted left nasal bone fractures. CT/CT head/brain wo IV con IMPRESSION: No acute intracranial abnormality. No calvarial or skull base fracture. Electronically signed by: Oleg Herbert MD 05/12/2025 10:02 AM EDT Dictated By: Oleg Herbert MD Signed By: <Electronically signed by Oleg Herbert MD in OV> 05/12/25 1002 DD/ 0933 TD/TT: 05/12/25 0956 Scientific Informatics Analyst: [facility] External Provider IMG CT PROCEDURES Edited Result - Final * High Sensitivity Troponin I (05/12/2025 9:20 AM EDT) Only the most recent of2 resultswithin the time period is included. TROPONIN I HIGH SENSITIVITY 5.9 <3.5 - 35.0 ng/L [facility] Comment:The Sow high sens itivity Troponin-I results should beused in conjunction with other diagnostic information suchas ECG, clinical observations and information, and patientsymptoms to aid in the diagnosis of HI. 05/12/2025 9:20 AM EDT 05/12/2025 9:23 AM EDT us Generic External Data Provider LAB BLOOD ORDERAB LES Final Result Performing Organization Address City/State/[facility] Co de Phone Number [facility] [address] [place] [phone] * CT Sinus Facial Bones w/o Contrast (05/12/2025 8:48 AM EDT) Anatomical Region Laterality Modality Computed Tomogra phy 05/12/2025 8:48 AM EDT Narrative 05/12/2025 9:41 AM EDT [address] [address] [address] Scan Report Signed Patient: Golden Hedrick MR#: [id number] : 1960 Acct:[id number] Age/Sex: 65 / M ADM Date: 05/12/25 Loc: HO.ED Attending Dr: Ordering Physician: Cole Mondragon Date of Service: 05/12/25 Procedure(s): CT facial bones wo IV con Accession Number(s): [id number] cc: Cole Mondragon; [facility] Report Number: [id number]: Total DLP = 368.00 mGy-cm Reason for Exam: fall EXAMINATION: CT FACIAL BONES WITHOUT CONTRAST CLINICAL INFORMATION: Fall COMPARISON: None available. TECHNIQUE: Spiral CT imaging of the maxillofacial bones and mandible was performed. Multiplanar reformatted imaging constructed from the axial data set. This CT examination was performed using dose optimization techniques as appropriate, variously including the following: *Automated exposure control *Adjustment of mA and/or kV according to patient size (this includes techniques or standardized protocols for targeted exams where dose is matched to indication/reason for exam; i.e. extremities or head) *Use of iterative reconstruction technique FINDINGS: There are comminuted, minimally displaced left nasal bone fractures, presumably acute. There is an avulsion fracture of the nasal process. The mandible is intact without fracture. The TM joints are normally oriented. The maxilla, orbits, zygomatic arches, pterygoid plates, and sphenoid bone are intact without fracture. No significant nasal septal deviation. Globes and orbital contents image normally. Paranasal sinuses are normally pneumatized throughout. No paranasal sinus fractures. There is opacification of the right mastoid tip. The tympanic spaces are aerated normally. Imaged cervical spine is intact. Imaged calvarium is intact. Imaged skull base is intact. Imaged maxillofacial/neck soft tissues appear normal. CT/CT facial bones wo IV con IMPRESSION: 1. Mildly comminuted, mildly displaced left nasal bone fractures. These are presumably acute. 2. Small avulsion fracture of the nasal process. 3. No additional maxillofacial or mandibular fracture. Electronically signed by: Oleg Herbert MD 05/12/2025 09:38 AM EDT RP Dictated By: Oleg Herbert MD Signed By: <Electronically signed by Oleg Herbert MD in OV> 05/12/2538 DD/ 0848 TD/TT: 05/12/25 0911 Scientific Informatics Analyst: Procedure Note Donotuseinterpreter, Image - 05/12/[address] [place] [address] [address] Scan Report Signed Patient: Golden Hedrick RMR#: [id number] : 1960Acct:[id number] Age/Sex: 65 / MADM Date: 05/12/25 Loc: HO.ED Attending Dr: Ordering Physician: Cole Mondragon Date of Service: 05/12/25 Procedure(s): CT facial bones wo IV con Accession Number(s): [id number] cc: Cole Mondragon; [facility] Report Number: [id number]: Total DLP = 368.00 mGy-cm Reason for Exam: fall EXAMINATION: CT FACIAL BONES WITHOUT CONTRAST CLINICAL INFORMATION: Fall COMPARISON: None available. TECHNIQUE: Spiral CT imaging of the maxillofacial bones and mandible was performed. Multiplanar reformatted imaging constructed from the axial data set. This CT examination was performed using dose optimization techniques as appropriate, variously including the following: *Automated exposure control *Adjustment of mA and/or kV according to patient size (this includes techniques or standardized protocols for targeted exams where dose is matched to indication/reason for exam; i.e. extremities or head) *Use of iterative reconstruction technique FINDINGS: There are comminuted, minimally displaced left nasal bone fractures, presumably acute. There is an avulsion fracture of the nasal process. The mandible is intact without fracture. The TM joints are normally oriented. The maxilla, orbits, zygomatic arches, pterygoid plates, and sphenoid bone are intact without fracture. No significant nasal septal deviation. Globes and orbital contents image normally. Paranasal sinuses are normally pneumatized throughout. No paranasal sinus fractures. There is opacification of the right mastoid tip. The tympanic spaces are aerated normally. Imaged cervical spine is intact. Imaged calvarium is intact. Imaged skull base is intact. Imaged maxillofacial/neck soft tissues appear normal. CT/CT facial bones wo IV con IMPRESSION: 1. Mildly comminuted, mildly displaced left nasal bone fractures. These are presumably acute. 2. Small avulsion fracture of the nasal process. 3. No additional maxillofacial or mandibular fracture. Electronically signed by: Oleg Herbert MD 05/12/2025 09:38 AM EDT Dictated By: Oleg Herbert MD Signed By: <Electronically signed by Oleg Herbert MD in OV> 05/12/25 0938 DD/ 0848 TD/TT: 05/12/25 0911 Scientific Informatics Analyst: [facility] External Provider IMG CT PROCEDURES Edited Result - Final * Partial Thromboplastin Time, Activated (APTT) (05/12/2025 8:29 AM EDT) Partial Thromboplastin Time 27.8 26.7 - 34.1 SEC [facility] 05/12/2025 8:29 AM EDT 05/12/2025 8:32 AM EDT Generic External Data Provider LAB BLOOD ORDERAB LES Final Result [facility] [address] [place] [address] [phone] * (ABNORMAL) Prothrombin Time-INR (05/12/2025 8:29 AM EDT) Pathologist [facility] Prothrombin Time 10.8(L) 10.9 - 12.4 SEC [facility] INTERNATIONAL NORM RATIO 0.9 0.9 - 1.1 [facility] Comment:INTERNATIONAL NORMAL IZED RATIO (INR) REFERENCE RANGES Reference RangeFor patients not on anticoagulant therapy: 0.9 - 1.1INR ranges for oral anticoagulanttherapy:For prevention and treatment of venous thrombosis and pulmonary embolism: 2.0 - 3.0For acute myocardial infarction with aspirin therapy: 2.0 - 3.0For acute myocardial infarction without aspirin therapy: 3.0 - 4.0For patients with mechanical prosthetic heart valves: 2.5 - 3.5 05/12/2025 8:29 AM EDT 05/12/2025 8:32 AM EDT Generic External Data Provider LAB BLOOD ORDERAB LES Final Result Performing Organization Address [facility] de Phone Number [facility] [address] [place] [phone] * (ABNORMAL) CBC auto differential (05/12/2025 7:18 AM EDT) [facility] White Blood Count 9.1 4.8 - 10.8 X10*3/uL [facility] Red Blood Count 4.30(L) 4.60 - 5.80 X10*6/uL [facility] Hemoglobin 13.4(L) 14.0 - 18.0 g/dl [facility] Hematocrit 40.8(L) 42.0 - 52.0 % [facility] Mean Corpuscular Volume 94.9 80.0 - 98.0 fL [facility] Mean Corpuscular Hemoglobin 31.2 27.0 - 33.0 pg [facility] Mean Corpuscular HGB Conc 32.8 31.0 - 36.0 g/dl [facility] Red Cell Distribution Width 12.1 11.0 - 16.0 % [facility] Platelet Count 251 160 - 400 X10*3/uL [facility] Mean Platelet Volume 9.7 9.4 - 12.4 fL [facility] Neutrophils Percent Auto 65.1 45 - 73 % [facility] Imm Gran Pct Auto 0.6(H) 0.0 - 0.4 % [facility] Lymphocytes Percent Auto 19.1(L) 20 - 40 % [facility] Monocytes Percent Auto 10.1 2 - 11 % [facility] Eosinophils Percent Auto 4.4(H) 0 - 4 % [facility] Basophils Percent Auto 0.7 0 - 2 % [facility] NRBC Pct Auto 0.0 0.0 - 0.2 /100WBC [facility] Neutrophils Absolute Auto 5.9 2.0 - 8.3 x10*3/uL [facility] Imm Gran Abs Auto 0.05(H) 0.00 - 0.03 X10*3/uL [facility] Lymphocytes Absolute Auto 1.7 1.2 - 4.9 X10*3/uL [facility] Monocytes Absolute Auto 0.9 0.1 - 1.2 X10*3/uL [facility] Eosinophils Absolute Auto 0.4 0.0 - 0.4 X10*3/uL [facility] Basophils Absolute Auto 0.1 0.0 - 0.2 X10*3/uL [facility] NRBC Abs Auto 0.000 0.0 - 0.012 X10*3/uL [facility] 05/12/2025 7:18 AM EDT 05/12/2025 7:21 AM EDT us Generic External Data Provider LAB BLOOD ORDERAB LES Final Result [facility] [address] [place] [phone] * (ABNORMAL) Comprehensive Metabolic Panel (05/12/2025 7:18 AM EDT) Sodium 139 135 - 145 mmol/L [facility] Potassium 4.1 3.3 - 5.1 mmol/L [facility] Chloride 102 96 - 108 mmol/L [facility] Carbon Dioxide 32(H) 22 - 29 mmol/L [facility] Anion Gap 9(L) 12 - 20 [facility] Urea Nitrogen (BUN) 15 9 - 16 mg/dL [facility] Creatinine, Serum 0.74 0.5 - 1.4 mg/dL [facility] Creatinine Clr Calc Pharmacy 112.5 [facility] Comment:eGFR (calculated fro m the MDRD study equation) and eCrCl(calculated from the Cockcroft-Gault equation) are based ondifferent parameters and may not yield comparable results.If eCrCl result is absurd, please check patient'sheight/weight. Estimated Glomerular Filt Rate >60 [facility] Comment:Chronic Kidney Disea se: Estimated GFR < 60 mL/min/[id number] Kidney Disease: Estimated GFR < 15 mL/min/1.73m2 Glucose 115 60 - 115 mg/dL [facility] Calcium 9.0 8.4 - 10.2 mg/dL [facility] Bilirubin, Total 0.7 0.0 - 1.0 mg/dL [facility] Aspartate Amino Transferase 49(H) 5 - 37 U/L [facility] Alanine Aminotransferase 45(H) 0 - 40 U/L [facility] Total Protein 7.8 6.5 - 8.0 g/dL [facility] Albumin Level 4.0 3.5 - 5.0 g/dL [facility] Alkaline Phosphatase 109 39 - 117 U/L [facility] 05/12/2025 7:18 AM EDT 05/12/2025 7:21 AM EDT us Generic External Data Provider LAB BLOOD ORDERAB LES Final Result [facility] [address] [place] [phone] * T-SPOT??.TB (03/28/2025 12:25 PM EDT) T Spot TB Negative Negative [facility] Comment:A negative test resu lt does [...] as aquantitative test. TS PANEL A 0 [facility] TS PANEL B 0 [facility] Negative Control Passed [facility] Positive Control Passed [facility] Comment:For additional infor adan, please refer tohttp://education.Trelligence/faq/RLY526(This link is being provided for informational/educational purposes only.)THIS TEST WAS PERFORMED AT:[employer]/[facility] [place] [address]IWGBBNGBRODERICK SCHWAB MD,PHD 03/28/2025 12:2 5 PM EDT 03/28/2025 1:19 PM EDT Jose Faria MD LAB BLOOD ORDERABLES Final Resul t [facility] [address] [place] [address] [phone] from Last 3 Months Insurance [facility] CARE < [address] [employer] [id number] [place] [address] [place] [address] Care Teams Manager Of Warehouse Relationship Specialty Start Date End Date Name, MD Jose [address] [place] [address] PCP - General Internal Medicine 06/18/25
--- OUTSIDE RECORDS SUMMARY | 2025-06-25 08:05 | XMS_ITS | Patient Health Record ---
Author Organization [facility] Address [address] [place] [address] Care Team Providers Care Dean Of Instruction Name Role Phone Payam Shine Jr [phone] Reason For Referral No Information Plan Of Treatment No Information
[2025-06-25 11:11] LABS: MANUAL DIFF FLAG NO
[2025-06-25 11:23] LABS: Hematocrit 40.6 % (42.0-52.0); Hemoglobin 13.0 g/dl (14.0-18.0); Imm Gran Abs Auto 0.03 X10*3/uL (0.00-0.03); Imm Gran Pct Auto 0.3 % (0.0-0.4); Lymphocytes Absolute Auto 2.7 X10*3/uL (1.2-4.9); Mean Corpuscular HGB Conc 32.0 g/dl (31.0-36.0); Mean Corpuscular Hemoglobin 30.3 pg (27.0-33.0); Mean Corpuscular Volume 94.6 fL (80.0-98.0); NRBC Abs Auto 0.000 X10*3/uL (0.0-0.012); NRBC Pct Auto 0.0 /100WBC (0.0-0.2); Platelet Count 266 X10*3/uL (160-400); Red Blood Count 4.29 X10*6/uL (4.60-5.80); White Blood Count 10.0 X10*3/uL (4.8-10.8)
[2025-06-25 11:56] LABS: Alanine Aminotransferase 45 U/L (0-40); Albumin Level 4.0 g/dL (3.5-5.0); Alkaline Phosphatase 119 U/L (39-117); Anion Gap 10 (12-20); Aspartate Amino Transferase 52 U/L (5-37); Blood Urea Nitrogen 20 mg/dL (9-16); Calcium 9.0 mg/dL (8.4-10.2); Carbon Dioxide 32 mmol/L (22-29); Chloride 100 mmol/L (96-108); Cholesterol 146 mg/dL (<200); Estimated Glomerular Filt Rate > 60; HDL Cholesterol 66 mg/dL (>40); Potassium 4.3 mmol/L (3.3-5.1); Sodium 138 mmol/L (135-145); Total Protein 7.6 g/dL (6.5-8.0); Triglycerides 61 mg/dL (<150)
[2025-06-26 08:04] LABS: HBS Num1 4.94 mIU/mL (0-7.99); HBsAGNum1 0.44 S/CO (0.00-0.99); HIV Num 1 0.08 S/CO (0.00-0.99); Hepatitis B Surface Antigen Negative (Negative); ~HepC Num1 14.26 S/CO (0.00-0.79); ~Hepatitis B Surface Antibody NONREACTIVE (Nonreactive); ~Hepatitis C Antibody Reactive (Nonreactive)
[2025-06-27 08:07] LABS: ~Hepatitis A Antibody IgG 8.88 S/CO (0.00-0.99)
[2025-06-30 20:53] LABS: HCV Log PCR 6.70 Log IU/mL (NOT DETECTED); HepC Viral Load 5010000 IU/mL (NOT DETECTED)
== END 2025-06-25 08:01 | disposition home or self-care (01) ==
LOC: HO.HHCL 08:00
PROVIDERS: PCP Internal Medicine Geriatric Medicine; Visit Provider Internal Medicine Geriatric Medicine
DX: I10 Essential (primary) hypertension (principal); F11.20 Opioid dependence, uncomplicated; F31.32 Bipolar disorder, current episode depressed, moderate; F17.200 Nicotine dependence, unspecified, uncomplicated; B19.20 Unspecified viral hepatitis C without hepatic coma
CPT/HCPCS: 36415; 80053; 80061; 85025; 86592; 86706; 86708; 86803; 87340; 87389; 87522

== ENCOUNTER 2025-07-04 08:09 | Outpatient (REF) | payer OTHER, SELFPAY ==
[2025-07-04 12:16] LABS: MANUAL DIFF FLAG NO
[2025-07-04 12:23] LABS: Hematocrit 40.1 % (42.0-52.0); Hemoglobin 12.6 g/dl (14.0-18.0); Imm Gran Abs Auto 0.03 X10*3/uL (0.00-0.03); Imm Gran Pct Auto 0.4 % (0.0-0.4); Lymphocytes Absolute Auto 2.1 X10*3/uL (1.2-4.9); Mean Corpuscular HGB Conc 31.4 g/dl (31.0-36.0); Mean Corpuscular Hemoglobin 30.1 pg (27.0-33.0); Mean Corpuscular Volume 95.9 fL (80.0-98.0); NRBC Abs Auto 0.000 X10*3/uL (0.0-0.012); NRBC Pct Auto 0.0 /100WBC (0.0-0.2); Platelet Count 245 X10*3/uL (160-400); Red Blood Count 4.18 X10*6/uL (4.60-5.80); White Blood Count 7.6 X10*3/uL (4.8-10.8)
[2025-07-04 12:50] LABS: INTERNATIONAL NORM RATIO 0.9 (0.9-1.1); Prothrombin Time 11.0 SEC (11.2-13.5)
[2025-07-04 12:54] LABS: Alanine Aminotransferase 48 U/L (0-40); Albumin Level 3.9 g/dL (3.5-5.0); Alkaline Phosphatase 122 U/L (39-117); Anion Gap 11 (12-20); Aspartate Amino Transferase 53 U/L (5-37); Blood Urea Nitrogen 24 mg/dL (9-16); Calcium 8.9 mg/dL (8.4-10.2); Carbon Dioxide 32 mmol/L (22-29); Chloride 103 mmol/L (96-108); Estimated Glomerular Filt Rate > 60; Potassium 4.8 mmol/L (3.3-5.1); Sodium 141 mmol/L (135-145); Total Protein 7.7 g/dL (6.5-8.0)
[2025-07-04 12:58] LABS: HBc Num1 9.59 S/CO (0.00-0.79)
[2025-07-05 08:48] LABS: HBc Num2 9.77 S/CO; HBc Num3 9.89 S/CO
[2025-07-07 11:04] LABS: Hepatitis B Core Antibody IgM NON-REACTIVE (NON-REACTIVE)
[2025-07-11 01:49] LABS: FIB-ALT 35 U/L (9-46); FIB-Alpha-2-Macroglobulin 250 mg/dL (106-279); FIB-Apolipoprotein A1 219 mg/dL (94-176); FIB-GGT 89 U/L (3-70); FIB-Haptoglobin 116 mg/dL (43-212); FIB-Total Bilirubin 0.2 mg/dL (0.2-1.2); Liver Fibrosis Score 0.20; Liver Fibrosis Stage F0; Nec Inflam Act Grade A0; Nec Inflam Act Score 0.16
== END 2025-07-04 08:10 | disposition home or self-care (01) ==
LOC: HO.HHCL 08:09
PROVIDERS: PCP Internal Medicine Geriatric Medicine; Referring Provider Family Medicine; Visit Provider Internal Medicine Geriatric Medicine
DX: B19.20 Unspecified viral hepatitis C without hepatic coma (principal)
CPT/HCPCS: 36415; 80053; 81596; 82248; 85025; 85610; 86704; 86705; 87902

== ENCOUNTER 2025-07-21 07:13 | Emergency (ER) | payer OTHER, SELFPAY ==
[2025-07-21 07:18] VITALS: BP 160/84; BP 175/69; PULSE 54; RESP 16; TEMP 37.1; O2SAT 95; BMI 32.5
--- OUTSIDE RECORDS SUMMARY | 2025-07-21 07:32 | XMS_ITS | Patient Health Record ---
Author Organization [facility] Address [address] [place] [address] Care Team Providers Care Padded Box Sewer Name Role Phone Payam Shine Jr Reason For Referral No Information Plan Of Treatment No Information
--- OUTSIDE RECORDS SUMMARY | 2025-07-21 07:32 | XMS_ITS | Encounter Summary ---
Author Organization [employer] Address [address] [place] [address] Care Team Providers Care Park Guide Name Role Phone Name, Jose ATKINSON Primary Care Provider [phone] Encounter Details Date Type Department Care Team (Latest Contact Info) Description 07/04/2025 Results Follow-Up [facility] [address] [place], [place] [phone] Name, MD Jose [address] [place] [address] CBC auto differential, Prothrombin Time-INR, Comprehensive Metabolic Panel, Additional followed-up results: 3 Social History Tobacco Use Types Packs/Day Years Used Date Smoking Tobacco: Every Day Cigarettes Smokeless Tobacco: Never Alcohol Use Standard Drinks/Week Comments Never 0 (1 standard drink = 0.6 oz pur e alcohol) Depression Answer Date Recorded Patient Health Questionnaire-9 Score 1 06/18/2025 Patient Health Questionnaire-9 Score 1 06/18/2025 Last PHQ-9: Questionnaire Data Not on file 1 Housing Stability Answer Date Recorded What is your housing situation today? I have rhonda jackson 06/18/[address] you [...] Orientation Straight 06/17/2025 8: 29 AM EDT documented as of this encounter Miscellaneous Notes * Result Encounter Note - Shivani Hilario MD - 07/10/2025 9:09 AM EST Understood. On the Epic side, we can't see if patients have gotten their labs drawn, so we are re-ordering so that it comes directly to us and can expedite treatment. Thanks for the heads up about this...moving forward, we'll check [employer] before ordering any additional labs. * Result Encounter Note - Shivani Hilario MD - 07/08/2025 9:34 AM EST Hi Ramona, BONII, see Dr. Faria's message. documented in this encounter Plan of Treatment Not on file documented as of this encounter Visit Diagnoses Not on filedocumented in this encounter Additional Health Concerns Assessment Noted Time PHQ-9 Depression Total Score: 1 06/18/20 9:13 AM EDT documented as of this encounter Care Teams Park Guide Relationship Specialty Start Date End Date Jose Faria MD [address] [place] [address] PCP - General Internal Medicine 06/18/25 documented as of this encounter
--- OUTSIDE RECORDS SUMMARY | 2025-07-21 07:32 | XMS_ITS | Clinical Summary ---
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 lisinopril 40 MG tabletIndications :Essential hypertension Take 1 tablet (40 mg) by mouth Once per day. 30 tablet 11 06/18/2025 06/13/20 26 Active hydroCHLOROthiazi de (HYDRODiuril) 25 MG tabletIndications :Essential hypertension Take 1 tablet (25 mg) by mouth Once per day. 30 tablet 11 06/18/2025 06/18/20 26 Active amLODIPine (Norvasc) 10 MG tabletIndications :Essential hypertension Take 1 tablet (10 mg) by mouth Once per day. 30 tablet 11 06/18/2025 06/13/20 26 Active Active Problems Problem Noted Date Diagnosed [...] Essential hypertension 05/19/2017 Overview (06/17/2025): 05/25/17 [place] [facility] [place]; initial complaint of HERNANDEZ. [...] 01/05/2018 06/18/20 25 Overview (06/17/2025): [place] [facility] [place]01[place]03[place]18 for CP. ACS r/o. PE unlikely, f/u with PCP 05/17/18 Eval at Cardiology. Atypical CP c/w chostochondritis. Will get stress test d/t multiple CAD risk factors. 06/13/18- stress test negative. Follow up with PCP to get better control of BP. 09/22/[address] Castrejon. Recommends repeat stress test Encounters * This document contains information received from the source organization and may not represent a complete record from that organization. Date Type Department Care Team Description 07/14/[address] [address] Jose Faria MD Medication Question 07/04/2025 Results Follow-Up [address] [phone] Jose Faria MD CBC auto differential, Prothrombin Time-INR, Comprehensive Metabolic Panel, Additional followed-up results: 3 07/04/2025 Orders Only [facility] [address] [place] [phone] Shivani Hilario MD 07/01/[address] [address] Sarai Phillips, RN Hep C Tx 07/01/2025 Orders Only [address] [address] Sarai Phillips, RN Hepatitis C virus infection without hepatic coma, unspecified chronicity 07/01/2025 Results Follow-Up [address] [address] Jose Faria MD Hepatitis C Viral RNA, Quantitative, Real-Time PCR 06/25/[address] [address] Jose Faria MD 06/18/2025 9:00 AM EDT Office Visit [address] [address] Jose Faria MD Essential hypertension (Primary Dx); Bipolar affective disorder, currently depressed, moderate (CMS/HCC) (HCC); Methadone dependence (CMS/HCC) (HCC); Hepatitis C virus infection without hepatic coma, unspecified chronicity; Tobacco use disorder; Vaccine refused by patient 06/18/2025 Travel 06/17/[address] [address] Jose Faria MD Chart Prep 06/11/2025 Patient Outreach [facility] [address] [place] [address] Jose Faria MD Pre-visit Planning ([facility] unable to reach [facility] ) 05/12/2025 Orders Only GENERIC EXTERNAL DATA DEPARTMENT Provider, Generic External Data from Last 3 Months Immunizations Immunization Administration [...] 06/18/2025 9:11 AM EDT Plan of Treatment Health Maintenance Due Date Last Done Comments CT Colonography 1960 Colonoscopy 1960 Colorectal Cancer Screening 1960 FIT DNA/Cologuard 1960 FIT 1960 FOBT 1960 Sigmoidoscopy 1960 Hepatitis A Vaccines (1 of 2 - Risk 2-dose series) 01/14/1979 Hepatitis B Vaccines (3 of 3 - Risk 3-dose series) 10/30/2002 07/24/2002, 05/02/2002 RSV Patients and Patients Aged 60 years or older (1 - Risk 50-74 years 1-dose series) 01/14/2010 COVID-19 Vaccine ( - season) 2025 07/13/2021, 12/29/2020, 12/01/2020 Influenza Vaccine (#1) 2025 , 05/27/2017, 05/31/2013, Additional history exists Alcohol/Substance Use Screening 06/18/2026 06/18/2025 Depression Screening 06/18/2026 06/18/2025, 06/18/20 SDOH Screening 06/18/2026 06/18/2025 Tobacco Screening 06/18/2026 06/18/2025 Lipid Panel 06/25/2030 06/25/2025 DTaP/Tdap/Td Vaccines (3 - Td or Tdap) [...] Procedure Name Priority Date/Time Associated Diagnosis Comments LIVER FIBROSIS, FIBROTEST ACTITEST PANEL Routine 07/04/2025 8:22 AM EST HEPATITIS B CORE ANTIBODY (IGM) Routine 07/04/2025 8:22 AM EST HEPATITIS B CORE AB TOTAL Routine 07/04/2025 8:22 AM EST HEPATIC FUNCTION PANEL Routine 07/04/2025 8:22 AM EST COMPREHENSIVE METABOLIC PANEL Routine 07/04/2025 8:22 AM EST PROTHROMBIN TIME-INR Routine 07/04/2025 8:22 AM EST CBC WITH AUTO DIFFERENTIAL Routine 07/04/2025 8:22 AM EST HEPATITIS C VIRAL RNA GENOTYPE, LIPA Routine 07/04/2025 8:22 AM EST Hepatitis C virus infection without hepatic coma, unspecified chronicity HEPATITIS C VIRAL RNA, QUANTITATIVE, REAL-TIME PCR Routine 06/25/2025 8:04 AM EST RPR (MONITOR) W/REFL TITER Routine 06/25/2025 8:04 AM EST Methadone dependence (CMS/HCC) (HCC) Essential hypertension Hepatitis C virus infection without hepatic coma, unspecified chronicity Bipolar affective disorder, currently depressed, moderate (CMS/HCC) (HCC) Tobacco use disorder HIV 1/2 ANTIGEN/ANTIBODY, FOURTH GENERATION W/RFL Routine 06/25/2025 8:04 AM EST Methadone dependence (CMS/HCC) (HCC) Essential hypertension Hepatitis C virus infection without hepatic coma, unspecified chronicity Bipolar affective disorder, currently depressed, moderate (CMS/HCC) (HCC) Tobacco use disorder HEPATITIS A ANTIBODY, TOTAL Routine 06/25/2025 8:04 AM EST Methadone dependence (CMS/HCC) (HCC) Essential hypertension Hepatitis C virus infection without hepatic coma, unspecified chronicity Bipolar affective disorder, currently depressed, moderate (CMS/HCC) (HCC) Tobacco use disorder HEPATITIS B SURFACE ANTIBODY, QUALITATIVE Routine 06/25/2025 8:04 AM EST Methadone dependence (CMS/HCC) (HCC) Essential hypertension Hepatitis C virus infection without hepatic coma, unspecified chronicity Bipolar affective disorder, currently depressed, moderate (CMS/HCC) (HCC) Tobacco use disorder HEPATITIS B SURFACE ANTIGEN, EIA Routine 06/25/2025 8:04 AM EST Methadone dependence (CMS/HCC) (HCC) Essential hypertension Hepatitis C virus infection without hepatic coma, unspecified chronicity Bipolar affective disorder, currently depressed, moderate (CMS/HCC) (HCC) Tobacco use disorder HEPATITIS C AB W/REFL TO HCV RNA, QN, PCR Routine 06/25/2025 8:04 AM EST Methadone dependence (CMS/HCC) (HCC) Essential hypertension Hepatitis C virus infection without hepatic coma, unspecified chronicity Bipolar affective disorder, currently depressed, moderate (CMS/HCC) (HCC) Tobacco use disorder LIPID PANEL, STANDARD Routine 06/25/2025 8:04 AM EST Methadone dependence (CMS/HCC) (HCC) Essential hypertension Hepatitis C virus infection without hepatic coma, unspecified chronicity Bipolar affective disorder, currently depressed, moderate (CMS/HCC) (HCC) Tobacco use disorder COMPREHENSIVE METABOLIC PANEL Routine 06/25/2025 8:04 AM EST Methadone dependence (CMS/HCC) (HCC) Essential hypertension Hepatitis C virus infection without hepatic coma, unspecified chronicity Bipolar affective disorder, currently depressed, moderate (CMS/HCC) (HCC) Tobacco use disorder CBC WITH AUTO DIFFERENTIAL Routine 06/25/2025 8:04 AM EST Methadone dependence (CMS/HCC) (HCC) Essential hypertension Hepatitis C virus infection without hepatic coma, unspecified chronicity Bipolar affective disorder, currently depressed, moderate (CMS/HCC) (HCC) Tobacco use disorder ECG 12-LEAD Routine 06/18/2025 11:34 AM EDT [...] AUTO DIFFERENTIAL Routine 05/12/2025 7:18 AM EDT from Last 3 Months Results * (ABNORMAL) Liver Fibrosis (HCV), FibroTest-ActiTest Panel (07/04/2025 8:22 AM EST) Liver Fibrosis Score 0.20 [facility] Liver Fibrosis Stage F0 [facility] Liver Fibrosis Interpretation SEE NOTE [facility] Comment:no fibrosisFibro Ailyn t Score (f) Metavir Score f>=0 and f<=0.21 : F0 (no fibrosis)f>0.21 and f<=0.27 : F0-F1 (no fibrosis)f>0.27 and f<=0.31 : F1 (minimal fibrosis)f>0.31 and f<=0.48 : F1-F2 (minimal fibrosis)f>0.48 and f<=0.58 : F2 (moderate fibrosis)f>0.58 and f<=0.72 : F3 (advanced fibrosis)f>0.72 and f<=0.74 : F3-F4 (advanced fibrosis)f>0.74 and f<=1.00 : F4 (severe fibrosis) Nec Inflam Act Score 0.16 [facility] Nec Inflam Act Grade A0 [facility] Nec Inflam Act Interpretation SEE NOTE [facility] Comment:no activityActiTest Score (a) Metavir Score a>=0 and a<=0.17 : A0 (no activity)a>0.17 and a<=0.29 : A0-A1 (no activity)a>0.29 and a<=0.36 : A1 (minimal activity)a>0.36 and a<=0.52 : A1-A2 (minimal activity)a>0.52 and a<=0.60 : A2 (significant activity)a>0.60 and a<=0.62 : A2-A3 (significant activity)a>0.62 and a<=1.00 : A3 (severe activity) POE-Kqjsh-7-Macroglo bulin 250 106 - 279 mg/dL [facility] FIB-Haptoglobin 116 43 - 212 mg/dL [facility] FIB-Apolipoprotein A1 219(A) 94 - 176 mg/dL [facility] FIB-Total Bilirubin 0.2 0.2 - 1.2 mg/dL [facility] FIB-GGT 89(A) 3 - 70 U/L [facility] FIB-ALT 35 9 - 46 U/L [facility] Reference ID [id number] [facility] Footnote SEE NOTE [facility] Comment: The reliability of results is dependent on compliance withthe preanalytical and analytical conditions recommended byBio[employer]ict[employer]. The tests have to be deferred for: acutehemolysis, acute hepatitis, acute inflammation, extrahepatic cholestasis. The advice of a specialist should besought for interpretation in chronic hemolysis and Gilbert'ssyndrome. The test interpretation is not validated in livertransplant patients. Isolated extreme values of one of thecomponents should lead to caution in interpreting theresults. In case of discordance between a biopsy result meng test, it is recommended to seek the advice of aspecialist. The causes of these discordances could be due toa flaw of the test or to a flaw in the biopsy: i.e. a liverbiopsy has a 33% variability rate for one fibrosis stage.FibroTest is interpretable for chronic hepatitis B and C,alcoholic and non alcoholic steatosis. ActiTest isinterpretable for chronic hepatitis B and C.The performance characteristics have been determined by[employer] [facility]. Ithas not been cleared or approved by the U.S. Food and DrugAdministration. Performance characteristics refer to theanalytical performance of the test.[employer], [employer], the associated logo, Travis and all associated [employer] Diagnostics lewis are theregistered trademarks of [employer]. All third partymarks - (R) and (TM) - are the property of their respectiveowners. (C) 0527-1511 [employer]. Allrights reserved.THIS TEST WAS PERFORMED AT:[employer] [id number] [place] [id number] ARDON MD,PHD,HERBER 07/04/2025 8:22 AM EST 07/04/2025 12:10 PM EST Shivani Hilario MD LAB BLOOD ORDERABLES Final R esult [facility] [address] [place] [phone] * (ABNORMAL) CBC auto differential (07/04/2025 8:22 AM EST) Only the most recent of3 resultswithin the time period is included. White Blood Count 7.6 4.8 - 10.8 X10*3/uL [facility] Red Blood Count 4.18(L) 4.60 - 5.80 X10*6/uL [facility] Hemoglobin 12.6(L) 14.0 - 18.0 g/dl [facility] Hematocrit 40.1(L) 42.0 - 52.0 % [facility] Mean Corpuscular Volume 95.9 80.0 - 98.0 fL [facility] Mean Corpuscular Hemoglobin 30.1 27.0 - 33.0 pg [facility] Mean Corpuscular HGB Conc 31.4 31.0 - 36.0 g/dl [facility] Red Cell Distribution Width 12.0 11.0 - 16.0 % [facility] Platelet Count 245 160 - 400 X10*3/uL [facility] Mean Platelet Volume 10.4 9.4 - 12.4 fL [facility] Neutrophils Percent Auto 56.5 45 - 73 % [facility] Imm Gran Pct Auto 0.4 0.0 - 0.4 % [facility] Lymphocytes Percent Auto 27.2 20 - 40 % [facility] Monocytes Percent Auto 9.9 2 - 11 % [facility] Eosinophils Percent Auto 5.3(H) 0 - 4 % [facility] Basophils Percent Auto 0.7 0 - 2 % [facility] NRBC Pct Auto 0.0 0.0 - 0.2 /100WBC [facility] Neutrophils Absolute Auto 4.3 2.0 - 8.3 x10*3/uL [facility] Imm Gran Abs Auto 0.03 0.00 - 0.03 X10*3/uL [facility] Lymphocytes Absolute Auto 2.1 1.2 - 4.9 X10*3/uL [facility] Monocytes Absolute Auto 0.8 0.1 - 1.2 X10*3/uL [facility] Eosinophils Absolute Auto 0.4 0.0 - 0.4 X10*3/uL [facility] Basophils Absolute Auto 0.1 0.0 - 0.2 X10*3/uL [facility] NRBC Abs Auto 0.000 0.0 - 0.012 X10*3/uL [facility] 07/04/2025 8:22 AM EST 07/04/2025 12:10 PM EST us Shivani Hilario MD LAB BLOOD ORDERABLES Final R esult [facility] [address] [place] [phone] * Hepatitis B Core??Antibody (IgM) (07/04/2025 8:22 AM EST) Hepatitis B Core Antibody IgM NON-REACTI VE NON-REACTI VE [facility] Comment:For additional infor mation, please refer tohttp://education.[employer]/faq/SDB170(This link is being provided for informational/educational purposes only.)THIS TEST WAS PERFORMED AT:[employer] [place] [phone] SINGH MD 07/04/2025 8:22 AM EST 07/04/2025 12:10 PM EST Shivani Hilario MD LAB BLOOD ORDERABLES Final R esult Performing Organization Address [facility] Co de Phone Number [facility] [address] [place] [phone] * Hepatitis B Core Antibody, Total (07/04/2025 8:22 AM EST) Hepatitis B Core Antibody Reactive Nonreactive [facility] Comment:Presumptive evidence of anti-HBc. 07/04/2025 8:22 AM EST 07/04/2025 12:10 PM EST Shivani Hilario MD LAB BLOOD ORDERABLES Final R esult Performing Organization Address [facility] de Phone Number [facility] [address] [place] [phone] * Hepatitis C Viral RNA, Genotype, LiPA (07/04/2025 8:22 AM EST) Hepatitis C Genotype 1b Not Detected [facility] Comment:The methods used in this test are RT-PCR and DNASequencing of the 5' UTR and core region of the HCVgenome.For additional information, please refer tohttp://[employer]/faq/HCVGenotyping(This link is being provided for informational/educational purposes only.)This test was developed and its analytical performancecharacteristics have been determined by [employer]. It has not been cleared or approved bythe FDA. The assay has been validated pursuant to theCLIA regulations and is used for clinical purposes.THIS TEST WAS PERFORMED AT:[id number] [place] [address]OAUHAASBRODERICK SCHWAB MD,PHD Blood Venous blood specimen / Unknown 07/04/2025 8:22 AM EST 07/04/2025 12:10 PM EST Jose Faria MD LAB BLOOD ORDERABLES Final Resul t Performing Organization Address City/[facility] Co de Phone Number [facility] [address] [place] [phone] * (ABNORMAL) Prothrombin Time-INR (07/04/2025 8:22 AM EST) Only the most recent of2 resultswithin the time period is included. Prothrombin Time 11.0(L) 11.2 - 13.5 SEC [facility] INTERNATIONAL NORM RATIO 0.9 0.9 - 1.1 [facility] Comment:INTERNATIONAL NORMAL IZED RATIO (INR) REFERENCE RANGES Reference RangeFor patients not on anticoagulant therapy: 0.9 - 1.1INR ranges for oral anticoagulanttherapy:For prevention and treatment of venous thrombosis and pulmonary embolism: 2.0 - 3.0For acute myocardial infarction with aspirin therapy: 2.0 - 3.0For acute myocardial infarction without aspirin therapy: 3.0 - 4.0For patients with mechanical prosthetic heart valves: 2.5 - 3.5 07/04/2025 8:22 AM EST 07/04/2025 12:10 PM EST Shivani Hilario MD LAB BLOOD ORDERABLES Final R esult Performing Organization Address City/[facility] Co de Phone Number [facility] [address] [place] [phone] * Hepatic Function Panel (07/04/2025 8:22 AM EST) Bilirubin, Direct 0.2 0.0 - 0.5 mg/dL [facility] 07/04/2025 8:22 AM EST 07/04/2025 12:10 PM EST us Shivani Hilario MD LAB BLOOD ORDERABLES Final R esult [facility] [address] [place] [phone] * (ABNORMAL) Comprehensive Metabolic Panel (07/04/2025 8:22 AM EST) Only the most recent of3 resultswithin the time period is included. Sodium 141 135 - 145 mmol/L [facility] Potassium 4.8 3.3 - 5.1 mmol/L [facility] Chloride 103 96 - 108 mmol/L [facility] Carbon Dioxide 32(H) 22 - 29 mmol/L [facility] Anion Gap 11(L) 12 - 20 [facility] Urea Nitrogen (BUN) 24(H) 9 - 16 mg/dL [facility] Creatinine, Serum 0.79 0.5 - 1.4 mg/dL [facility] Estimated Glomerular Filt Rate >60 [facility] Comment:Chronic Kidney Disea se: Estimated GFR < 60 mL/min/1.54i6Pqkkyw Kidney Disease: Estimated GFR < 15 mL/min/1.73m2 Glucose 95 60 - 115 mg/dL [facility] Calcium 8.9 8.4 - 10.2 mg/dL [facility] Bilirubin, Total 0.5 0.0 - 1.0 mg/dL [facility] Aspartate Amino Transferase 53(H) 5 - 37 U/L [facility] Alanine Aminotransferase 48(H) 0 - 40 U/L [facility] Total Protein 7.7 6.5 - 8.0 g/dL [facility] Albumin Level 3.9 3.5 - 5.0 g/dL [facility] Alkaline Phosphatase 122(H) 39 - 117 U/L [facility] 07/04/2025 8:22 AM EST 07/04/2025 12:10 PM EST us Shivani Hilario MD LAB BLOOD ORDERABLES Final R esult Performing Organization Address [facility] Co de Phone Number [facility] [address] [place] [phone] * (ABNORMAL) Hepatitis C Viral RNA, Quantitative, Real-Time PCR (06/25/2025 8:04 AM EST) Pathologist [facility] Hepatitis C Viral Load [id number](A ) NOT DETECTED IU/mL [facility] HCV Log PCR 6.70(A) NOT DETECTED Log IU/mL [facility] Comment:For additional infor mation, please refer tohttp://education.[employer]/faq/OFT26q7(This link is being provided for informational/educational purposes only.)THIS TEST WAS PERFORMED AT:[employer] [place] [id number] SINGH MD 06/25/2025 8:04 AM EST 06/27/2025 9:15 AM EST us Jose Faria MD LAB BLOOD ORDERABLES Final Resul t Performing Organization Address [facility] de Phone Number [facility] [address] [place] [phone] * (ABNORMAL) Hepatitis C Antibody with Reflex to HCV, RNA, Quantitative, Real- Time PCR (06/25/2025 8:04 AM EST) Pathologist [facility] Hepatitis C Antibody Reactive( A) Nonreactive [facility] Comment:Presumptive evidence of antibodies to HCV. Blood Venous blood specimen / Unknown 06/25/2025 8:04 AM EST 06/25/2025 11:08 AM EST us Jose Faria MD LAB BLOOD ORDERABLES Final Resul t Performing Organization Address [facility] Co de Phone Number [facility] [address] [place] [phone] * Hepatitis A Antibody, Total (06/25/2025 8:04 AM EST) Hepatitis A Antibody IgG REACTIVE Nonreactive [facility] Comment:The presence of IgG anti-HAV implies past HAV infection(recent or distant) or vaccination against HAV. Blood Venous blood specimen / Unknown 06/25/2025 8:04 AM EST 06/25/2025 11:08 AM EST us Jose Faria MD LAB BLOOD ORDERABLES Final Resul t Performing Organization Address [facility] de Phone Number [facility] [address] [place] [phone] * Hepatitis B surface antigen, EIA (06/25/2025 8:04 AM EST) Hepatitis B Surface Ag Negative Negative [facility] Blood Venous blood specimen / Unknown 06/25/2025 8:04 AM EST 06/25/2025 11:08 AM EST us Jose Faria MD LAB BLOOD ORDERABLES Final Resul t Performing Organization Address [facility] Phone Number [facility] [address] [place] [phone] * RPR (Monitor) with Reflex to??Titer (06/25/2025 8:04 AM EST) RPR (Monitor) w/Refl Titer NON-REACTI VE NON-REACT LAKESHIA [facility] Comment:THIS TEST WAS PERFOR MED AT:[address] [place] [id number] SINGH MD Rapid Plasma Reagin Ab Titer TNP [facility] Blood Venous blood specimen / Unknown 06/25/2025 8:04 AM EST 06/25/2025 11:08 AM EST us Jose Faria MD LAB BLOOD ORDERABLES Final Resul t Performing Organization Address [facility]/ZIP Co de Phone Number [facility] [address] [place] [phone] * HIV-1/2 Antigen and Antibodies, Fourth Generation, with Reflexes (06/25/2025 8:04 AM EST) HIV AB/AG Nonreactive Nonreactive [facility] Comment:HIV-1 p24 Ag and/or HIV-1/HIV-2 Ab not detected.A test result that is nonreactive does not exclude thepossibility of exposure to or infection with HIV-1 and/orHIV-2. Nonreactive results in this assay for individualswith prior exposure to HIV-1 and/or HIV-2 may be due toantigen and antibody levels that are below the limit ofdetection of this assay.The Tap 'n Tap HIV Ag/Ab Combo assay result andsupplemental assay results should be interpreted inconjunction with the patient's clinical presentation,history and other laboratory results. If the results areinconsistent with clinical evidence, additional testing issuggested to confirm the result. Blood Venous blood specimen / Unknown 06/25/2025 8:04 AM EST 06/25/2025 11:08 AM EST us Jose Faria MD LAB BLOOD ORDERABLES Final Resul t Performing Organization Address [facility] de Phone Number [facility] [address] [place] [phone] * Hepatitis B Surface Antibody, Qualitative (06/25/2025 8:04 AM EST) ~Hepatitis B Surface Antibody NONREACTIVE Nonreactive [facility] Comment:Nonreactive: < 8.00 mIU/mL Blood Venous blood specimen / Unknown 06/25/2025 8:04 AM EST 06/25/2025 11:08 AM EST us Jose Faria MD LAB BLOOD ORDERABLES Final Resul t Performing Organization Address [facility] Co de Phone Number [facility] [address] [place] [phone] * Lipid Panel, Standard (06/25/2025 8:04 AM EST) Triglycerides 61 <150 mg/dL [facility] Comment:Desirable Triglyceri de: less than 150 mg/dLBorderline High Triglyceride 150-199 mg/dLHigh Triglyceride: 200-499 mg/dLVery High Triglyceride: greater than or equal to 5OO mg/dL Cholesterol 146 <200 mg/dL [facility] Comment:Desirable Cholestero l: less than 200 mg/dLBorderline High Cholesterol: 200-239 mg/dLHigh Cholesterol: greater than 239 mg/dL LDL Cholesterol Calculated 68 <100 mg/dL [facility] Comment:Desirable LDL: less than 100 mg/dLNear Optimal/Above Optimal LDL: 110- 129 mg/dLBorderline High LDL: 130-159 mg/dLHigh LDL: 160-189 mg/dLVery High LDL: greater than or equal to 190 mg/dL HDL Cholesterol 66 >40 mg/dL [facility] Comment:Desirable HDL: great er than 40 mg/dL Note: This HDL assay may give artificially low results in patients with liver disease. Blood Venous blood specimen / Unknown 06/25/2025 8:04 AM EST 06/25/2025 11:08 AM EST us Jose Faria MD LAB BLOOD ORDERABLES Final Resul t [facility] [address] [place] [phone] [phone] * ECG 12 lead (06/18/2025 11:34 AM EDT) Narrative Name, MD Jose - 06/18/2025 11:34 AM EDT Poor baseline due to artifact, sinus coleen at 54, LAFB, I did not see significant ST segment elevation or depression. No old EKG to compare us Jose Faria MD ECG ORDERABLES Final Result * CT Cervical Spine w/o Contrast (05/12/2025 9:33 AM EDT) Anatomical Region Laterality Modality Spine, C-spine Computed Tomogra phy 05/12/2025 9:33 AM EDT Narrative 05/12/2025 10:09 AM EDT [address] [address] [address] Scan Report Signed Patient: Golden Hedrick MR#: [id number] : 1960 Acct:[id number] Age/Sex: 65 / M ADM Date: 05/12/25 Loc: HO.ED Attending Dr: Ordering Physician: Cole Mondragon Date of Service: 05/12/25 Procedure(s): CT cervical spine wo IV con Accession Number(s): [id number] cc: Cole Mondragon; [facility] Report Number: [id number]: Total DLP = 1237.26 mGy-cm Reason for [...] OV> 05/12/25 1007 DD/ TD/TT: 05/12/25 0956 Lithographic Press Operator Apprentice: Procedure Note Donotuseinterpreter, Image - 05/12/[address] [address] [address] Scan Report Signed Patient: Golden Hedrick RMR#: [id number] : 1960Acct:[id number] Age/Sex: 65 / MADM Date: 05/12/25 Loc: HO.ED Attending Dr: Ordering Physician: Cole Mondragon Date of Service: 05/12/25 Procedure(s): CT cervical spine wo IV con Accession Number(s): [id number] cc: Cole Mondragon; [facility] Report Number: [id number]: Total DLP = 1237.26 mGy-cm Reason for [...] 05/12/25 1007 DD/ 0933 TD/TT: 05/12/25 0956 Lithographic Press Operator Apprentice: [facility] External Provider IMG CT PROCEDURES Edited Result - Final * CT Head w/o Contrast (05/12/2025 9:33 AM EDT) Anatomical Region Laterality Modality Head, Neck Computed Tomogra phy 05/12/2025 9:33 AM EDT Narrative 05/12/2025 10:05 AM EDT [address] [address] [address] Scan Report Signed Patient: Golden Hedrick MR#: [id number] : 1960 Acct:[id number] Age/Sex: 65 / M ADM Date: 05/12/25 Loc: HO.ED Attending Dr: Ordering Physician: Cole Mondragon Date of Service: 05/12/25 Procedure(s): CT head/brain wo IV con Accession Number(s): [id number] cc: Cole Mondragon; [facility] Report Number: [id number]: Total DLP = 0.00 mGy-cm Reason for [...] Herbert MD in OV> 05/12/25 1002 DD/ TD/TT: 05/12/2556 Lithographic Press Operator Apprentice: Procedure Note Donotuseinterpreter, Image - 05/12/[address] [address] [address] Scan Report Signed Patient: Golden Hedrick RMR#: [id number] : 1960Acct:[id number] Age/Sex: 65 / MADM Date: 05/12/25 Loc: HO.ED Attending Dr: Ordering Physician: Cole Mondragon Date of Service: 05/12/25 Procedure(s): CT head/brain wo IV con Accession Number(s): [id number] cc: Cole Mondragon; [facility] Report Number: [id number]: Total DLP = 0.00 mGy-cm Reason for [...] 05/12/25 1002 DD/ 0933 TD/TT: 05/12/25 0956 Lithographic Press Operator Apprentice: [facility] External Provider IMG CT PROCEDURES Edited Result - Final * High Sensitivity Troponin I (05/12/2025 9:20 AM EDT) Only the most recent of2 resultswithin the time period is included. TROPONIN I HIGH SENSITIVITY 5.9 <3.5 - 35.0 ng/L [facility] Comment:The Sow high sens itivity Troponin-I results should beused in conjunction with other diagnostic information suchas ECG, clinical observations and information, and patientsymptoms to aid in the diagnosis of [place]. 05/12/2025 9:20 AM EDT 05/12/2025 9:23 AM EDT Generic External Data Provider LAB BLOOD ORDERAB LES Final Result Performing Organization Address City/State/[facility] Co de Phone Number [facility] [address] [place] [phone] * CT Sinus Facial Bones w/o Contrast (05/12/2025 8:48 AM EDT) Anatomical Region Laterality Modality Computed Tomogra phy 05/12/2025 8:48 AM EDT Narrative 05/12/2025 9:41 AM EDT [address] [address] [address] Scan Report Signed Patient: Golden Hedrick MR#: [id number] : 1960 Acct:[id number] Age/Sex: 65 / M ADM Date: 05/12/25 Loc: HO.ED Attending Dr: Ordering Physician: Cole Mondragon Date of Service: 05/12/25 Procedure(s): CT facial bones wo IV con Accession Number(s): [id number] cc: Cole Mondragon; [facility] Report Number: [id number]: Total DLP = 368.00 mGy-cm Reason for [...] 05/12/25 0938 DD/ 0848 TD/TT: 05/12/25 0911 Lithographic Press Operator Apprentice: Procedure Note Donotuseinterpreter, Image - 05/12/[address] [address] [address] Scan Report Signed Patient: Golden Hedrick R#: [id number] : 1960Acct:[id number] Age/Sex: 65 / MADM Date: 05/12/25 Loc: HO.ED Attending Dr: Ordering Physician: Cole Mondragon Date of Service: 05/12/25 Procedure(s): CT facial bones wo IV con Accession Number(s): [id number] cc: Cole Mondragon; [facility] Report Number: [id number]: Total DLP = 368.00 mGy-cm Reason for [...] 05/12/25 0938 DD/ 0848 TD/TT: 05/12/25 0911 Lithographic Press Operator Apprentice: us [facility] External Provider IMG CT PROCEDURES Edited Result - Final * Partial Thromboplastin Time, Activated (APTT) (05/12/2025 8:29 AM EDT) Partial Thromboplastin Time 27.8 26.7 - 34.1 SEC [facility] 05/12/2025 8:29 AM EDT 05/12/2025 8:32 AM EDT Generic External Data Provider LAB BLOOD ORDERAB LES Final Result [facility] [address] [place] [phone] from Last 3 Months Insurance [facility] < [address] [employer] [id number] Care 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
--- NOTE | 2025-07-21 07:42 | ED_ITS ---
HPI - Abdominal Pain General Chief Complaint: Abdominal Pain Stated Complaint: ABD PAIN PER EMS Time Seen by Provider: 07/21/25 07:29 Source: patient, EMS and creative services director (hungarian - [facility]) Mode of arrival: EMS Limitations: language barrier (hungarian) History of Present Illness ED Provider: MELVA PAGAN PA-C HPI narrative: 65 year old male with pmhx significant for HTN and gastritis presents to the ED today for evaluation of dizziness, abdominal pain, and nausea without vomiting x this morning. Abdominal pain is localized to epigastric region, no radiation. Admits to similar pain in the past, was diagnosed with gastritis. He does not take anything for this. Reports normal BM this morning. Denies recent constipation or diarrhea. Denies fever, chills, hematochezia, hematemesis, melena, urinary sx, chest pain, sob. No sick contacts. Related Data Home Medications ?Medication ?Instructions ?Recorded ?Confirmed hydrochlorothiazide 25 mg tablet 25 mg PO DAILY 03/08/25 lisinopril 40 mg tablet 40 mg PO DAILY 03/08/2502/18 methadone 10 mg/mL oral 65 mg PO DAILY 03/10/2502/19 concentrate (Methadose) Previous Rx's ?Medication ?Instructions ?Recorded amlodipine 10 mg tablet 10 mg PO DAILY #90 tabs 02/19 09/14 hydralazine 10 mg tablet 10 mg PO TID #270 tabs 03/10 amoxicillin 875 mg-potassium 1 tab PO Q12H 10 days #20 tabs 05/12/25 clavulanate 125 mg tablet naproxen 500 mg tablet 500 mg PO BID PRN pain #14 t abs 05/12/25 famotidine 40 mg tablet 40 mg PO DAILY 2 weeks #14 t abs 07/21/25 Allergies Allergy/AdvReac Type Severity Reaction Status Date / Time No Known Allergies Allergy Mild NONE Verified 07/21/25 07:20 Review of Systems Review of Systems Yes all other systems are reviewed and are negative PMFSH Past Medical History Attestation statement: The following information was validated with the patient. 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) Alcohol intake: never Patient Tobacco Use Status: Former Tobacco user Tobacco use type: Cigarette Second Hand Smoke Exposure: No Advance Directives: No Advance Directives Information Provided: No service: No Physical Exam ED Vital Signs: Vital Signs - 24 hr 07/21/25 07:18 07/21/25 09:00 07/21/25 10:17 Temperature 98.7 F 98.2 F 98.2 F Pulse Rate 54 59 59 Respiratory Rate 16 16 16 Blood Pressure 175/69 H 156/73 H 156/73 H Pulse Oximetry 95 95 95 Oxygen Delivery Method Room Air Room Air Room Air BMI result Body Mass Index 32.5 hypertensive, vitals are otherwise wnl General: Well appearing, in no acute distress. Skin: Warm, dry, intact. No rashes or lesions. Head: Normocephalic, atraumatic. EENT: Hearing is intact b/l. Conjunctiva clear. Sclera is anicteric. PERRLA. EOM intact. Moist mucous membranes.? Neck: Supple without LAD Cardiac: Chest wall symmetric. RRR Lungs: Normal respiratory effort without accessory muscle use. CTA bilaterall Abdomen: Obese abdomen, soft, nondistended, tender to palpation of epigastric region without or guarding, normoactive bowel sounds x4, no CVAT. Back: No midline spinous or paraspinal tenderness. No step off deformity. Ext: Upper and lower extremities atraumatic, without tenderness, deformity, swelling or erythema. Full ROM throughout Neuro: AOx3. Normal speech. Ambulating with steady gait. Course Course Course Narrative: CBC without leukocytosis or left shift. Normocytic anemia, H&H stable when compared to priors. Above transfusion threshold. Chemistry without acute electrolyte abnormality requiring intervention. No ED. Random glucose 117, no anion gap. Liver function around baseline. > Patient treated w/ GI cocktail with complete resolution of symptoms. Concern for PUD vs gastritis. I do not feel as though CT is warranted at this time. Will send patient home with famotidine and outpatient follow up. Patient has remained stable throughout ED visit today. Discussed worrisome signs and symptoms and when to return to the ED. All questions answered at this time. Patient is agreeable with disposition and stable for discharge. Medical Decision Making Medical Decision Making [facility] Narrative: 65 year old male with pmhx significant for HTN and gastritis presents to the ED today for evaluation of dizziness, abdominal pain, and nausea without vomiting x this morning. Differential diagnosis includes biliary colic, gastroenteritis, gastritis, PUD. Abdominal exam without peritoneal signs. No evidence of acute abdomen at this time. Well appearing. Moderate suspicion for acute hepatobiliary disease (including acute cholecystitis). Less likely to represent acute pancreatitis, perforated ulcer/ GI bleed, acute infectious processes (pneumonia, hepatitis, pyelonephritis), atypical appendicitis, vascular catastrophe, bowel obstruction or viscus perforation. Presentation not consistent with other acute, emergent causes of abdominal pain at this time. Plan: labs, GI cocktail, serial reassessment Differential Diagnosis Differential Diagnoses: The differential diagnosis associated with the presentation includes As above Admission/Observation Not indicated Lab Data [facility] Lab Attestation statement: I reviewed the patient's lab results. As above 07/21/25 07:51 07/21/25 07:51 Labs: Lab Results 07/21/25 Range/Units 07:51 WBC 9.7 (4.8-10.8) X10*3/uL RBC 4.53 L (4.60-5.80) X10*6/uL Hgb 13.7 L (14.0-18.0) g/dl Hct 41.8 L (42.0-52.0) % MCV 92.3 (80.0-98.0) fL MCH 30.2 (27.0-33.0) pg MCHC 32.8 (31.0-36.0) g/dl RDW 11.7 (11.0-16.0) % Plt Count 242 (160-400) X10*3/uL MPV 9.5 (9.4-12.4) fL Immature Gran % (Auto) 0.5 H (0.0-0.4) % Neut % (Auto) 71.2 (45-73) % Lymph % (Auto) 17.5 L (20-40) % [place] % (Auto) 8.4 (2-11) % Eos % (Auto) 2.0 (0-4) % Baso % (Auto) 0.4 (0-2) % Lymph # (Auto) 1.7 (1.2-4.9) X10*3/uL [place] # (Auto) 0.8 (0.1-1.2) X10*3/uL Eos # (Auto) 0.2 (0.0-0.4) X10*3/uL Baso # (Auto) 0.0 (0.0-0.2) X10*3/uL Abs Immat Gran (auto) 0.05 H (0.00-0.03) X10*3/uL Absolute Neuts (auto) 6.9 (2.0-8.3) x10*3/uL Absolute Nucleated RBC 0.000 (0.0-0.012) X10*3/uL Nucleated RBC % (auto) 0.0 (0.0-0.2) /100WBC Sodium 138 (135-145) mmol/L Potassium 3.7 D (3.3-5.1) mmol/L Chloride 102 (96-108) mmol/L Carbon Dioxide 31 H (22-29) mmol/L Anion Gap 9 L (12-20) BUN 17 H (9-16) mg/dL Creatinine 0.70 (0.5-1.4) mg/dL Estim Creat Clear Calc 122.5 Estimated GFR > 60 Random Glucose 117 H (60-115) mg/dL Calcium 9.3 (8.4-10.2) mg/dL Magnesium 1.9 (1.6-2.6) mg/dL Total Bilirubin 0.9 (0.0-1.0) mg/dL AST 53 H (5-37) U/L ALT 54 H (0-40) U/L Alkaline Phosphatase 107 (39-117) U/L Total Protein 8.1 H (6.5-8.0) g/dL Albumin 4.1 (3.5-5.0) g/dL Lipase 12 (8-78) U/L Independent Historian Clinical information obtained from an independent historian. History obtained from or confirmed by: EMS External Record Review External record reviewed: Inpatient record Prescription Management I considered prescription management with: Other (Famotidine) Chronic Conditions Patient?s care impacted by: Hypertension Social Determinants Patient?s care significantly limited by Social Determinants of Health including: Other Social Determinant of Health Medications Administered Discontinued Medications Generic Name Dose Route Start Last Admin Trade Name Freq PRN Reason Stop Dose Admin Al Hydroxide/Mg Hydroxide 30 ml 12/01/25 07:42 07/21/25 07:48 Magnesium Hydrox/Alum Hydrox 30 Ml Oral.Susp PO 07/21/25 07:43 30 ml ONCE ONE Administration Belladonna Alkaloids/Phenobarbital 10 ml 07/21/25 07:42 07/21/25 07:48 Phenobarb/Hyoscy/Atropine/Scop 10 Ml Elixir PO 07/21/25 07:43 10 ml ONCE ONE Administration Ondansetron HCl 4 mg 07/21/25 07:42 07/21/25 07:48 Ondansetron Odt 4 Mg Tab.Rapdis TRANSLINGU 07/21/25 07:43 4 mg ONCE ONE Administration Critical Care Time Critical Care Time Critical Care Time: No Discharge Plan Discharge Clinical Impression: Gastritis Patient Disposition: Home, Self-Care Instructions: Gastritis (ED), Upper Endoscopy (DC) Additional Instructions: You were evaluated in the ED today for upper abdominal pain. Your blood work is reassuring. Your symptoms improved with medicine. I have suspicion that your discomfort is from your gastritis. See home care instructions. I am prescribing you famotidine. Take this daily. Follow up with your PCP. I am also providing you with a referral to a GI doctor. Call them to establish care, they will not call you. Return with any new or worsening symptoms. In the case of an emergency call 911. Prescriptions: New famotidine 40 mg tablet 40 mg PO DAILY 14 Days Qty: 14 0RF No Action hydrochlorothiazide 25 mg tablet 25 mg PO DAILY lisinopril 40 mg tablet 40 mg PO DAILY methadone [Methadose] 10 mg/mL Concentrate 65 mg PO DAILY hydralazine 10 mg Tablet 10 mg PO TID Qty: 270 0RF Protocol: Hold for SBP< HOLD for SBP < : 90 amlodipine 10 mg Tablet 10 mg PO DAILY Qty: 90 0RF Protocol: Hold for SBP< HOLD for SBP < : 90 amoxicillin-pot clavulanate 875-125 mg tablet 1 tab PO Q12H 10 Days Qty: 20 0RF naproxen 500 mg tablet 500 mg PO BID PRN (Reason: pain) Qty: 14 0RF Referrals: [facility] Gastroenterology Services [Provider Group, Gastroenterology] Name,MD Jose [Primary Care Provider, Internal Medicine] Interventions: ED Discharge Assessment Last Done: 07/21/25 10:17 Discharge Date/Time: 07/21/25 10:18 Print Language: Iraqi
[2025-07-21] MEDS: Magnesium Hydrox/Alum Hydrox 30 ML ORAL.SUSP PO (07:48)
[2025-07-21] MEDS: PHENobarb/Hyoscy/Atropine/Scop 10 ML ELIXIR PO (07:48)
[2025-07-21 07:55] LABS: MANUAL DIFF FLAG NO
[2025-07-21 07:57] LABS: Hematocrit 41.8 % (42.0-52.0); Hemoglobin 13.7 g/dl (14.0-18.0); Imm Gran Abs Auto 0.05 X10*3/uL (0.00-0.03); Imm Gran Pct Auto 0.5 % (0.0-0.4); Lymphocytes Absolute Auto 1.7 X10*3/uL (1.2-4.9); Mean Corpuscular HGB Conc 32.8 g/dl (31.0-36.0); Mean Corpuscular Hemoglobin 30.2 pg (27.0-33.0); Mean Corpuscular Volume 92.3 fL (80.0-98.0); NRBC Abs Auto 0.000 X10*3/uL (0.0-0.012); NRBC Pct Auto 0.0 /100WBC (0.0-0.2); Platelet Count 242 X10*3/uL (160-400); Red Blood Count 4.53 X10*6/uL (4.60-5.80); White Blood Count 9.7 X10*3/uL (4.8-10.8)
[2025-07-21 08:14] LABS: Alanine Aminotransferase 54 U/L (0-40); Albumin Level 4.1 g/dL (3.5-5.0); Alkaline Phosphatase 107 U/L (39-117); Anion Gap 9 (12-20); Aspartate Amino Transferase 53 U/L (5-37); Blood Urea Nitrogen 17 mg/dL (9-16); Calcium 9.3 mg/dL (8.4-10.2); Carbon Dioxide 31 mmol/L (22-29); Chloride 102 mmol/L (96-108); Creatinine Clr Calc Pharmacy 122.5; Estimated Glomerular Filt Rate > 60; Lipase 12 U/L (8-78); Magnesium 1.9 mg/dL (1.6-2.6); Potassium 3.7 mmol/L (3.3-5.1); Sodium 138 mmol/L (135-145); Total Protein 8.1 g/dL (6.5-8.0)
[2025-07-21 09:00] VITALS: BP 156/73; PULSE 59; RESP 16; TEMP 36.8; O2SAT 95
[2025-07-21 10:17] VITALS: BP 156/73; PULSE 59; RESP 16; TEMP 36.8; O2SAT 95
== END 2025-07-21 10:18 | disposition home or self-care (01) ==
PROVIDERS: Physician Assistant Medical; Emergency Provider Emergency Medicine Emergency Medical Services; PCP Internal Medicine Geriatric Medicine
DX: K29.70 Gastritis, unspecified, without bleeding (principal); I10 Essential (primary) hypertension
CPT/HCPCS: 36415; 80053; 83690; 83735; 85025; 99283